=== PATIENT | male | born 1965 | race Caucasian/White ===

== ENCOUNTER 2023-04-29 22:50 | Inpatient (IN) | payer OTHER, SELFPAY ==
[2023-04-29] VITALS (12 sets, daily range): BP systolic 85–142; BP diastolic 69–83; BMI 39.5; BMI 36.7
[2023-04-29 19:30] LABS: Glucose - Point of Care 82 mg/dl (70-99)
[2023-04-29 19:49] LABS: % Basophils 0.4 % (0-2); % Immature Granulocytes 0.4 % (0-0.5); % Lymphocytes 7.2 % (20.5-51.1); % Monocytes 9.9 % (1.7-9.3); % Neutrophils 82.1 % (42.2-75.2); Absolute Lymphocytes 0.7 10^3/uL (1.2-3.4); Absolute Monocytes 0.9 10^3/uL (0.1-0.6); Absolute Neutrophils 7.6 10^3/uL (1.4-6.5); Hematocrit 29.2 % (39.0-52.0); Hemoglobin 9.5 g/dL (13.0-18.0); Mean Corp Hgb Conc. 32.5 g/dL (33.0-37.0); Mean Corpuscular Hgb 25.1 pg (27.0-31.0); Mean Corpuscular Volume 77.2 fL (80.0-94.0); Nucleated Red Blood Cells % 0 % (-); Platelet Count 156 10^3/uL (130-400); Red Blood Cell Count 3.78 10^6/uL (4.70-6.10); Red Cell Dist. Width 25.6 % (11.5-14.5); White Blood Cell Count 9.2 10^3/uL (4.8-10.8)
[2023-04-29] MEDS: NSS 1000 IV (19:57)
[2023-04-29 20:02] LABS: Ammonia 53 umol/L (9-30)
--- NOTE | 2023-04-29 20:03 | ED.GENMED ---
History of Present Illness
<Shantanu Freeman PA-C - Last Filed: 04/29/23 21:14>
General
Chief Complaint: Fall
Source: patient
Exam Limitations: none
Time Seen by Provider: 04/29/23 19:33
Travel History
Have you had any contact with someone who has COVID-19?: No
Do you have any symptoms of coronavirus? Fever > 100 degrees, chills, cough, shortness of breath, sore throat, loss of taste or smell, muscle aches, or headache?: No
History of Present Illness
History of Present Illness:
57-year-old male with history of alcoholic cirrhosis presents via EMS from home. He states he fell asleep on the couch and rolled off the couch but was unable to get up off the floor. He was on the floor for several hours. His daugther called
EMS. He denies chest pain. Denies abdominal pain fever or shortness of breath. His only complaint is generalized weakness. Last time he received a paracentesis about 4 months ago. He follows with GI here. He has a history of psoriasis.
Past History
<Shantanu Freeman PA-C - Last Filed: 04/29/23 21:14>
Past History
ED Past Medical History: None
Social History
Tobacco: Smoker
Alcohol: Daily (Until a month ago)
Phy Exam
<Shantanu Freeman PA-C - Last Filed: 04/29/23 21:14>
Physical Exam
Physical Exam:
General: Chronically ill-appearing male no acute respiratory distress
HEENT: Normocephalic atraumatic
Heart: Regular rate and rhythm no murmurs
Lungs: Breath sounds slightly diminished bilaterally secondary to body habitus
Abdomen: Significantly distended but soft and nontender
Extremities: Diffuse edema no cyanosis
Skin: Psoriatic plaques noted over the trunk and extremities
Neurologic exam: Alert no facial asymmetry no asterixis
Course
<Shantanu Freeman PA-C - Last Filed: 04/29/23 21:14>
Orders/Labs/Results
Orders:
Orders
04/29/23 19:34
Electrocardiogram (*1) Urgent
Reason for Study: Fatigue / Weakness
EKG- Treatment ONCE
Urinalysis Reflex To Culture Urgent
04/29/23 19:36
Prothrombin Time Urgent
Blood Culture Q30M
KATELYN Source: Blood/Venous
Specimen Description:
04/29/23 19:37
Ammonia Urgent
CPK [Creatine Phosphokinase] Urgent
Complete Blood Count/With Diff Urgent
Comprehensive Metabolic Panel Urgent
Lactic Acid Q4H
Comment: CANCEL 2nd LACTIC ACID IF 1st LACTIC ACID IS LESS THAN 2
04/29/23 19:48
Ever Hugger [Ever Hugger-Treatment] ONCE
Patient's goal temperature:: 97 F
Additional Instructions:: Temperature and skin assessment per unit protocol
0.9% Sodium Chloride 1000 ml [Nss] 1,000 ml IV BOLUS
04/29/23 20:15
Blood Culture Q30M
KATELYN Source: Blood/Venous
Specimen Description:
04/29/23 20:16
Piperacillin/Tazo 3.375 Gram [Zosyn] 3.375 gram in 50 ml IV NOW
Vancomycin [Vancocin] 2,000 mg 0.9% Sodium Chloride 500 ml [Nss] 500 ml IV NOW
04/29/23 20:20
Dextrose 50%-Water [Dextrose 50% Syringe] 25 grams IV NOW STA
04/29/23 20:25
CR Chest Portable - 1 View Urgent
Comment:
Reason For Exam: weakness
Reason Study Needs to be Portable: Patient Unstable
04/29/23 20:54
Catheter [Brand Placement- Treatment] ONCE
Reason for insertion: I&O's Critical Care
04/29/23 23:45
Lactic Acid Q4H
Comment: CANCEL 2nd LACTIC ACID IF 1st LACTIC ACID IS LESS THAN 2
Abnormal Lab Results
04/29/23 04/29/23
19:36 19:37
RBC 3.78 L 10^6/uL
(4.70-6.10)
Hgb 9.5 L g/dL
(13.0-18.0)
Hct 29.2 L %
(39.0-52.0)
MCV 77.2 L fL
(80.0-94.0)
MCH 25.1 L pg
(27.0-31.0)
MCHC 32.5 L g/dL
(33.0-37.0)
RDW 25.6 H %
(11.5-14.5)
Absolute Neuts (auto) 7.6 H 10^3/uL
(1.4-6.5)
Absolute Lymphs (auto) 0.7 L 10^3/uL
(1.2-3.4)
Absolute Monos (auto) 0.9 H 10^3/uL
(0.1-0.6)
Neutrophils % 82.1 H %
(42.2-75.2)
Lymphocytes % 7.2 L %
(20.5-51.1)
Monocytes % 9.9 H %
(1.7-9.3)
PT 24.1 H Sec
(11.4-14.6)
Carbon Dioxide 16 L mmol/L
(22-30)
Creatinine 0.6 L mg/dL
(0.7-1.3)
Glucose 64 L mg/dl
(70-99)
Lactic Acid 11.9 H* mmol/L
(0.7-2.0)
Calcium 8.2 L mg/dl
(8.4-10.2)
Total Bilirubin 5.9 H mg/dl
(0.2-1.3)
AST 746 H* U/L
(17-59)
ALT 127 H U/L
(0-50)
Ammonia 53 H umol/L
(9-30)
Creatine Kinase 49293 H U/L
(55-170)
Albumin 2.9 L g/dl
(3.5-5.0)
04/29/23 19:37
04/29/23 19:37
Vital Signs
Initial and Last Documented VS:
Initial Vital Signs
Temp Pulse Resp Pulse Ox
92.0 F L 100 23 98
04/29/23 19:19 04/29/23 19:19 04/29/23 19:19 04/29/23 19:19
Last Documented Vital Signs
Temp Pulse Resp BP Pulse Ox
92.0 F L 100 23 138/78 98
04/29/23 19:19 04/29/23 19:19 04/29/23 19:19 04/29/23 20:01 04/29/23 19:19
<Kunal Klein, DO - Last Filed: 04/29/23 21:02>
Orders/Labs/Results
Orders:
Orders
04/29/23 19:34
Electrocardiogram (*1) Urgent
Reason for Study: Fatigue / Weakness
EKG- Treatment ONCE
Urinalysis Reflex To Culture Urgent
04/29/23 19:36
Prothrombin Time Urgent
Blood Culture Q30M
KATELYN Source: Blood/Venous
Specimen Description:
04/29/23 19:37
Ammonia Urgent
CPK [Creatine Phosphokinase] Urgent
Complete Blood Count/With Diff Urgent
Comprehensive Metabolic Panel Urgent
Lactic Acid Q4H
Comment: CANCEL 2nd LACTIC ACID IF 1st LACTIC ACID IS LESS THAN 2
04/29/23 19:48
Ever Hugger [Ever Hugger-Treatment] ONCE
Patient's goal temperature:: 97 F
Additional Instructions:: Temperature and skin assessment per unit protocol
0.9% Sodium Chloride 1000 ml [Nss] 1,000 ml IV BOLUS
04/29/23 20:15
Blood Culture Q30M
KATELYN Source: Blood/Venous
Specimen Description:
04/29/23 20:16
Piperacillin/Tazo 3.375 Gram [Zosyn] 3.375 gram in 50 ml IV NOW
Vancomycin [Vancocin] 2,000 mg 0.9% Sodium Chloride 500 ml [Nss] 500 ml IV NOW
04/29/23 20:20
Dextrose 50%-Water [Dextrose 50% Syringe] 25 grams IV NOW STA
04/29/23 20:25
CR Chest Portable - 1 View Urgent
Comment:
Reason For Exam: weakness
Reason Study Needs to be Portable: Patient Unstable
04/29/23 20:54
Catheter [Brand Placement- Treatment] ONCE
Reason for insertion: I&O's Critical Care
04/29/23 23:45
Lactic Acid Q4H
Comment: CANCEL 2nd LACTIC ACID IF 1st LACTIC ACID IS LESS THAN 2
Abnormal Lab Results
04/29/23 04/29/23
19:36 19:37
RBC 3.78 L 10^6/uL
(4.70-6.10)
Hgb 9.5 L g/dL
(13.0-18.0)
Hct 29.2 L %
(39.0-52.0)
MCV 77.2 L fL
(80.0-94.0)
MCH 25.1 L pg
(27.0-31.0)
MCHC 32.5 L g/dL
(33.0-37.0)
RDW 25.6 H %
(11.5-14.5)
Absolute Neuts (auto) 7.6 H 10^3/uL
(1.4-6.5)
Absolute Lymphs (auto) 0.7 L 10^3/uL
(1.2-3.4)
Absolute Monos (auto) 0.9 H 10^3/uL
(0.1-0.6)
Neutrophils % 82.1 H %
(42.2-75.2)
Lymphocytes % 7.2 L %
(20.5-51.1)
Monocytes % 9.9 H %
(1.7-9.3)
PT 24.1 H Sec
(11.4-14.6)
Carbon Dioxide 16 L mmol/L
(22-30)
Creatinine 0.6 L mg/dL
(0.7-1.3)
Glucose 64 L mg/dl
(70-99)
Lactic Acid 11.9 H* mmol/L
(0.7-2.0)
Calcium 8.2 L mg/dl
(8.4-10.2)
Total Bilirubin 5.9 H mg/dl
(0.2-1.3)
AST 746 H* U/L
(17-59)
ALT 127 H U/L
(0-50)
Ammonia 53 H umol/L
(9-30)
Creatine Kinase 31960 H U/L
(55-170)
Albumin 2.9 L g/dl
(3.5-5.0)
04/29/23 19:37
04/29/23 19:37
Vital Signs
Initial and Last Documented VS:
Initial Vital Signs
Temp Pulse Resp Pulse Ox
92.0 F L 100 23 98
04/29/23 19:19 04/29/23 19:19 04/29/23 19:19 04/29/23 19:19
Last Documented Vital Signs
Temp Pulse Resp BP Pulse Ox
92.0 F L 100 23 138/78 98
04/29/23 19:19 04/29/23 19:19 04/29/23 19:19 04/29/23 20:01 04/29/23 19:19
<Shantanu Freeman PA-C - Last Filed: 04/29/23 21:14>
MDM/Problems Addressed
Differential Diagnosis Includes:
Weakness. Patient noted to be hypothermic with a rectal temperature of 92 upon arrival. History of alcoholic cirrhosis clinically now with significant ascites. No exam findings to suggest spontaneous bacterial peritonitis as his abdomen is soft
and nontender. Will obtain cultures lactic acid labs and ammonia level. Patient placed on Ever hugger
<Shantanu Freeman PA-C - Last Filed: 04/29/23 21:14>
*Critical Care Note
Total Time (30-74mins, 75-104mins- exclusive of procedures): Not Applicable
<Shantanu Freeman PA-C - Last Filed: 04/29/23 21:14>
Update Note
Update Note:
Patient with several laboratory abnormalities including lactic acidosis with a lactic of 11.9. He has elevated transaminases. Ammonia is elevated serum glucose is 64. CPK is 21,000. Patient warming up on Ever hugger. Blood pressure has been
stable since initial hypotensive reading. Discussed and seen with emergency room attending. Do not suspect SBP given lack of tenderness on exam. Will admit to hospital. Vancomycin and Zosyn ordered for coverage for potential sepsis. Blood
cultures are pending
ED Attending Note
<Shantanu Freeman PA-C - Last Filed: 04/29/23 21:14>
-
Portions of this chart may have been created with voice recognition software.� Occasional wrong word or��sound alike� substitutions may have occurred due to the inherent limitations of voice recognition software.
<Kunal Klein DO - Last Filed: 04/29/23 21:02>
ED Attending Note
Patient seen and examined by attending physician: Yes
I performed the substantive portion of visit, reviewed & personally made and approve the management plan that is documented in note by myself or ALLEY.: Yes
ED Attending Note:
Patient is a 57-year-old cirrhotic male who presents to the emergency department after not being able to get off the floor when he rolled off the couch today. Patient denies any injuries. Patient states he is just weak. Patient denies fever or
chills. Patient denies chest pain, shortness of breath or cough. Patient denies any abdominal pain, no nausea, vomiting or diarrhea. Patient does have paracentesis but has not had it for approximately 3 to 4 months. Patient denies symptoms.
Patient denies any extremity pain. Patient does admit to mild edema. Patient denies any head injury. On physical exam patient appears to be in minimal distress. Patient is pale with slight icteric sclera. Heart is distant but regular and lungs
are clear. Abdomen is greatly distended. Patient does have +1 pitting edema from the knees distally. Patient has significant psoriasis over his trunk and extremities. Patient's labs reviewed. Patient's lactic acid is elevated. Patient's
ammonia is elevated as well as AST. Patient's albumin is below 3. Patient's hypotensive and hypothermic. Patient actually looks better than his vital signs. Obviously sepsis and infection has to be considered. Patient's abdomen is nontender I
do not suspect peritonitis. Patient will be admitted. Patient is on a Ever hugger. Awaiting EKG.
Discharge Plan
Departure
Patient Disposition: Admit
Date of Disposition: 04/29/23
Time of Disposition: 21:13
Admit to: IMU
Presentation/result/management discussed w/ accepting MD/DO: Hospitalist
Discharge Problem:
Hypothermia, Acidosis, lactic, Rhabdomyolysis
Prescriptions:
No Action
spironolactone 50 mg Tablet
50 mg PO BID Qty: 60 0RF
furosemide 40 mg tablet
40 mg PO QPM
cholecalciferol (vitamin D3) 50 mcg (2,000 unit) Tablet
50 mcg PO DAILY
Referrals:
UNKNOWN - PT DOES,NOT KNOW [Family Provider] -
Interventions
Interventions:
*Risk Screen - Suicide Last Done: 04/29/23 19:19
*General Assessment Last Done: 04/29/23 19:19
*Neglect/Abuse Screening Last Done: 04/29/23 19:19
*ED COVID-19 Vaccine History Last Done: 04/29/23 19:19
[2023-04-29 20:04] LABS: INR 2.18; PT 24.1 Sec (11.4-14.6)
[2023-04-29 20:09] LABS: Calcium 8.2 mg/dl (8.4-10.2)
[2023-04-29 20:10] LABS: ALT (SGPT) 127 U/L (0-50); AST (SGOT) 746 U/L (17-59); Albumin 2.9 g/dl (3.5-5.0); Alkaline Phosphatase 124 U/L (38-126); Blood Urea Nitrogen 9 mg/dl (9-20); Carbon Dioxide 16 mmol/L (22-30); Chloride 101 mmol/L (98-107); Estimated Creatinine Clearance > 125 ml/min; Glucose 64 mg/dl (70-99); Potassium 4.2 mmol/L (3.5-5.1); Sodium 138 mmol/L (135-145); Total Bilirubin 5.9 mg/dl (0.2-1.3); Total Protein 7.7 g/dl (6.3-8.2); eGFR > 60.00
[2023-04-29 20:16] LABS: Lactic Acid 11.9 mmol/L (0.7-2.0)
[2023-04-29 21:05] LABS: Creatine Phosphokinase 21048 U/L (55-170)
[2023-04-29] MEDS: DEXTROSE 50% SYRINGE 25 GRAMS IV (21:33)
[2023-04-29 21:58] LABS: Urine Albumin Trace (Neg - Trace); Urine Bilirubin 1+ (Negative); Urine Character Clear (Clear); Urine Color Amber; Urine Glucose Negative (Negative); Urine Ketone 1+ (Negative); Urine Leukocyte Trace (Negative); Urine Nitrite Positive (Negative); Urine Occult Blood 4+ (Negative); Urine Specific Gravity 1.025 (<1.030); Urine Urobilinogen 1+ (Neg - 1+)
[2023-04-29 22:05] LABS: Urine Mucus Moderate
[2023-04-29 22:06] LABS: Urine Bacteria Many (Negative); Urine Hyaline Cast >15 /LPF (0-2); Urine Red Blood Cell 0-2 /HPF (0-2)
[2023-04-29 22:08] LABS: Glucose - Point of Care 144 mg/dl (70-99)
--- NOTE | 2023-04-29 22:14 | HPS.HSE ---
Family Physician
-
Family Physician: Vamshi Juarez
Chief Complaint
-
Weakness
History of Present Illness
Patient is a 57y M with PMH significant for alcoholic cirrhosis and psoriasis who presents to ED complaining of weakness and abdominal distention. History obtained from patient and from family at the bedside. Patient states that he felt well
this AM. He denies any recent symptoms of cough, dyspnea, fevers / chills, etc. He lie down on his couch around 11AM today and took a nap. He woke around 4PM on the floor next to his couch. He does not recall falling and thinks he must have
rolled off of the couch. He denies any pain upon waking. He was unfortunately unable to get himself up off of the floor. He states that his arms and legs were too weak for him to rise. He stayed there until around 7PM when his daughter arrived
with EMS and he was brought to the ED for evaluation.
Patient continues to deny any pain including headache, etc.
He states that he had at least one other episode of 'passing out' about one week ago and was also on the floor for a prolonged period of time in that instance. He did not seek medical attention at that time.
Patient has chronic alcoholic cirrhosis and ascites. He is compliant with his medications; however, he has gained about 40 lbs in the past 3-4 months.
Patient last had paracentesis 11/2022 for > 8 liters of fluid. He has had gradual abdominal distention and pressure since that time.
Patient notes that he drinks alcohol about 1-2 times per week - but he will drink 1/2 bottle of vodka on days that he does drink. His last drink was about 2 days ago.
In the ED, patient has had two episodes of loose, brown diarrhea that is not grossly bloody. He denies any diarrhea prior to today.
He is awake. alert and oriented. He denies any other current complaints.
Medical History
Past Medical History
Past Medical History: Reports Other
Additional Past Medical History:
Alcoholic Cirrhosis with Ascites and Esophageal Varices
Severe Psoriasis
Depression
Past Surgical History: Reports Other
Additional Past Surgical History:
Inguinal Herniorrhaphy
Social History
Tobacco: Smoker (Current every day smoker.)
Alcohol: Occasional (Chronic Alcoholic. Currently drinks 1/2 bottle of vodka once or twice per week.)
Drug: None
Living: Alone
Family History
Family History: Not pertinent
Allergies / Home Medications
Allergies reflects when Allergies were last updated in [facility].
Home Medications with original date entered in [facility]
Allergy/Medication List:
Allergies
Allergy/AdvReac Type Severity Reaction Status Date / Time
No Known Allergies Allergy Verified 11/27/22 11:27
Home Medications
spironolactone 50 mg tablet 50 mg PO BID #60 tabs 12/09/21
furosemide 40 mg tablet 40 mg PO QPM 11/27/22
cholecalciferol (vitamin D3) 50 mcg (2,000 unit) tablet 50 mcg PO DAILY 04/29/23
Review of Systems
-
History Source: Patient
A 12 point ROS was completed and negative except as noted: Yes
Constitutional: Reports Weight Gain and Fatigue; Denies Fever or Chills
Respiratory: Denies Cough or Trouble Breathing
Cardiac: Denies Chest Pain or Palpitations
Abdomen/GI: Reports Abdominal Pain and Diarrhea; Denies Nausea, Vomiting, Bloody Stools or Black Stools
: Denies Dysuria or Flank Pain
Musculoskeletal: Reports Edema; Denies Joint Pain
Neurological: Denies Dizzy or Headache
Psych: Denies Depression or Anxiety
Physical Exam
Vital Signs
Vital Signs
Temp Pulse Resp BP Pulse Ox
93.0 F L 100 23 138/78 98
04/29/23 21:27 04/29/23 19:19 04/29/23 19:19 04/29/23 20:01 04/29/23 19:19
Physical Exam
General: Other (57y M chronically ill-appearing. In no acute distress.)
HEENT: PERRLA and Other (Dry MM.)
Respiratory: Other (Decreased breath sounds bilaterally. Poor inspiratory effort.)
Cardiac: S1/S2 and Regular Rhythm; No Murmur
GI: Other (Markedly distended abdomen. Mildly diffusely tender. Pos bowel sounds.)
Genito-urinary: Other (Brand in place draining tea-colored urine.)
Musculoskeletal: No Clubbing, No Cyanosis and Other (4+ pitting edema into the lower abdomen.)
Skin: Other (Severe psoriasis with multiple areas of scaling / superficial skin breakdown. Most severe on the RLE, lower abdomen and perineum.)
Neuro: AO x 3 and Nonfocal/grossly intact
Laboratory Results
-
04/29/23 19:37
04/29/23 19:37
Laboratory Results
PT 24.1 Sec (11.4-14.6) H 04/29/23 19:36
INR 2.18 04/29/23 19:36
Lactic Acid 11.9 mmol/L (0.7-2.0) H* 04/29/23 19:37
Total Bilirubin 5.9 mg/dl (0.2-1.3) H 04/29/23 19:37
AST 746 U/L (17-59) H* 04/29/23 19:37
ALT 127 U/L (0-50) H 04/29/23 19:37
Alkaline Phosphatase 124 U/L (38-126) 04/29/23 19:37
Impression/Plan
-
A/P: Patient is a 57y M with PMH significant for alcoholic cirrhosis who presents to ED c/o weakness after being found down on the floor this afternoon.
Severe Rhabdomyolysis
Pigment Nephropathy
- Admit to IMU for further evaluation and treatment.
- CPK markedly elevated and suspect this is combination of multiple recent falls / time spent 'down'.
- UA with 4+ blood but no RBCs c/w pigment nephropathy.
- Administer volume for renal protection - will require coincident diuresis given cirrhosis / hypervolemia.
- Follow renal function for any changes and CPK levels for improvement.
- No complaints of pain at this time.
Alcoholic Cirrhosis with Ascites and Esophageal Varices
Lactic Acidosis
Chronic Alcohol Use Disorder
- Marked ascites on exam - gradual accumulation since 11/2022 per patient - despite current diuretic regimen.
- IR evaluation in the AM for diagnostic (r/o SBP) and therapeutic paracentesis.
- Cover with IV ceftriaxone for now - though patient is afebrile and notably not toxic appearing.
- GI evaluation for additional recommendations.
- Continue Lasix via IV route and follow urine output, daily weights, etc.
- Follow labs / lytes and adjust IVF replacement as needed.
- Follow serial lactate for improvement.
- Patient / family are interested in eventual inpatient rehab options. CM consulted.
Hypothermia
- ? secondary to infection / sepsis versus cirrhosis.
- No recent complaints / focal symptoms to suggest acute bacterial illness.
- Empiric abx for now as noted above.
- Ever Hugger for now. Follow temp curve.
- Check TFTs
- Follow for improvement.
Severe Psoriasis
- Marked skin changes c/w advanced psoriasis over multiple surfaces - most severe on RLE, lower abdomen and perineum.
- Wound care evaluation for local care recommendations.
- Wound encourage Dermatology evaluation as an outpatient.
- Suspect that cirrhosis will limit his systemic therapeutic options.
Chronic Macrocytic Anemia
- Stable. Hgb is at / near recent baseline.
- Check iron studies, B12, etc.
- Follow for any changes.
DVT Prophylaxis: Subcut heparin
Code Status: Full
[2023-04-29] MEDS: ROCEPHIN 2000 MG IV (22:25)
[2023-04-29] MEDS: STERILE WATER FOR INJECTION 20 ML IV (22:25)
[2023-04-30] VITALS (18 sets, daily range): BP systolic 98–135; BP diastolic 44–70; BMI 36.7
[2023-04-30] MEDS: D5/0.9% SODIUM CHLORIDE 1000 IV (00:47)
[2023-04-30] MEDS: FLEXBUMIN 100 IV ×4 (00:47→18:09)
[2023-04-30] MEDS: FLEXBUMIN 50 IV ×2 (00:50→15:25)
[2023-04-30 01:09] LABS: Iron 81 ug/dl (49-181)
--- NOTE | 2023-04-30 01:11 | PTCARENOTE ---
admitted to [id number]. abdomen is huge . iv fluids and albumin started- repeat lactic sent- sinus- bp wnl- psoriasis wounds open and in various degrees and stages of healing - afebrile- will monitor
[2023-04-30 01:20] LABS: Percent Saturation 34 % (20-50); Total Iron Binding Capacity 232 ug/dl (261-462)
[2023-04-30 01:25] LABS: Lactic Acid 9.7 mmol/L (0.7-2.0)
[2023-04-30 01:40] LABS: TSH Reflex To Free T4 1.31 uIU/ml (0.47-4.68)
[2023-04-30 02:16] LABS: Folate 5.6 ng/ml (2.76-20); Vitamin B12 > 1000 pg/ml (239-931)
[2023-04-30] MEDS: THIAMINE INJECTION 200 MG IV ×4 (02:26→23:48)
[2023-04-30] MEDS: ATIVAN 1 MG PO ×3 (05:33→21:13)
--- NOTE | 2023-04-30 05:34 | PTCARENOTE ---
msas was 5. 1 mg ativan given per protocol- -
[2023-04-30 05:37] LABS: Hemoglobin 8.4 g/dL (13.0-18.0); Mean Corp Hgb Conc. 32.3 g/dL (33.0-37.0); Mean Corpuscular Hgb 24.6 pg (27.0-31.0); Mean Platelet Volume 9.1 fL (7.4-10.4); Platelet Count 123 10^3/uL (130-400); Red Blood Cell Count 3.42 10^6/uL (4.70-6.10); Red Cell Dist. Width 25.1 % (11.5-14.5)
[2023-04-30 05:46] LABS: INR 2.33; PT 25.5 Sec (11.4-14.6)
[2023-04-30 05:52] LABS: Lactic Acid 7.2 mmol/L (0.7-2.0)
[2023-04-30 06:06] LABS: ALT (SGPT) 123 U/L (0-50); Albumin 3.1 g/dl (3.5-5.0); Alkaline Phosphatase 103 U/L (38-126); Blood Urea Nitrogen 10 mg/dl (9-20); Calcium 7.9 mg/dl (8.4-10.2); Carbon Dioxide 19 mmol/L (22-30); Chloride 105 mmol/L (98-107); Direct Bilirubin 3.4 mg/dl (0.0-0.4); Estimated Creatinine Clearance > 125 ml/min; Glucose 96 mg/dl (70-99); Magnesium 1.9 mg/dl (1.6-2.3); Phosphorus 3.8 mg/dl (2.5-4.5); Potassium 4.3 mmol/L (3.5-5.1); Sodium 137 mmol/L (135-145); Total Protein 7.4 g/dl (6.3-8.2); eGFR > 60.00
[2023-04-30 06:14] LABS: AST (SGOT) 744 U/L (17-59); Creatine Phosphokinase 10610 U/L (55-170)
--- NOTE | 2023-04-30 08:09 | W.PN.HOSP.TC ---
Today's Communication/Plan
-
For paracentesis today
Assessment / Plan
Assessment / Plan
HPI: 57y M with PMH significant for alcoholic cirrhosis who presents to ED c/o weakness after being found down on the floor this afternoon.
Severe Rhabdomyolysis
Pigment Nephropathy
�-CPK trending down, holding IV fluids secondary to respiratory distress
-Continue to trend CPK
Alcoholic Cirrhosis with Ascites and Esophageal Varices
Lactic Acidosis
Chronic Alcohol Use Disorder with alcohol dependency
�-Seen by GI, plan for paracentesis today
�-Continue rocephin, Lasix via IV route and follow urine output, daily weights, etc.
�-Trend serial lactate for improvement.
�-Patient / family are interested in eventual inpatient rehab options.� CM consulted
-Thiamone/folic acid, MSAS protocol
Respiratory distress
-Secondary to ascites, hold IV fluids, for paracentesis as above
-IV morphine as needed for dyspnea and pain
Hypothermia
�- ? secondary to infection / sepsis versus cirrhosis.
�-TSH normal
�-Continue Rocephin, bear hugger
�-Trend temp and white count
Severe Psoriasis
�- Marked skin changes c/w advanced psoriasis over multiple surfaces - most severe on RLE, lower abdomen and perineum.
�- Continue wound care, recommend outpatient Derm evaluation
�- Suspect that cirrhosis will limit his systemic therapeutic options.
Chronic Macrocytic Anemia
�-Monitor hemoglobin, B12/folic acid normal
DVT Prophylaxis:� Subcut heparin
Code Status:� Full
Total time spent to see the patient on the floor, examine the patient, review data and lab results, discuss treatment plan with patient, nursing staff around 52 minutes.
Physical Exam
General: Appears acutely ill, no acute distress
HEENT: Normocephalic, Atraumatic, EOMI, MMM
Respiratory: Tachypnea, mild respiratory distress, bibasilar crackles
Cardiac: Normal S1/S2, tachycardic rate, regular rhythm
GI: Tense abdomen, severely distended
Extremities: No Clubbing, Cyanosis
Bilateral lower extremity edema noted
Neuro: Nonfocal/Grossly Intact
Psych: Appears anxious
Derm: Severe psoriatic plaque on bilateral lower extremities, right greater than left
Anticipated Discharge: > 48 hours
Subjective/Interval History
-
Date of Service: April 30, 2023
Patient in respiratory distress, tachycardic, from severe distention from ascites.
Objective Data
-
Labs:
Laboratory Results
04/29/23 04/30/23
19:37 05:25
WBC 6.0
Hgb 8.4 L
Hct 26.0 L
Plt Count 123 L D
PT 25.5 H
INR 2.33
Sodium 138 137
Potassium 4.2 4.3
Chloride 101 105
Carbon Dioxide 16 L 19 L
BUN 9 10
Creatinine 0.6 L 0.6 L
Glucose 64 L 96
Calcium 8.2 L 7.9 L
Total Bilirubin 5.9 H 6.0 H
AST 746 H* 744 H*
ALT 127 H 123 H
Alkaline Phosphatase 124 103
Vital Signs:
Vital Signs
Temp Pulse Resp BP Pulse Ox
97.3 F 119 26 124/70 96
04/30/23 03:32 04/30/23 06:00 04/30/23 06:00 04/30/23 06:00 04/30/23 06:00
I&O
04/29/23 04/30/23 05/01/23
06:59 06:59 06:59
Intake Total 1060 / 1060
Balance 1060 / 1060
--- NOTE | 2023-04-30 08:28 | CON.GI ---
Addendum entered and electronically signed by Viviane Serrato DO 04/30/23 12:43:
Patient seen and examined independently of ARCHITECTURAL EXAMINER. I agree with her note with my additions below
Shayne is a 57-year-old noncompliant male with decompensated alcoholic cirrhosis with recurrent ascites who is actively drinking and not eligible for transplant for many reasons. He is here after waking up on the floor, currently with concern for
rhabdomyolysis, elevated lactate. GI was asked to see him for multiple chronic issues related to his liver. He has been seen in our office couple of times but has been noncompliant and getting labs and repeat paracentesis. He has never had SBP.
Routine labs on admission showed a hemoglobin of 9.5, WBC 9.2, platelets 156,000, INR 2.18, sodium 138, potassium 4.2, BUN 9, creatinine 0.6, lactic acid 11.9, total bilirubin 5.9, AST 746, ALT 127, alk phos 124, ammonia 53, CPK 21,048, albumin 2.9,
vitamin B12 greater than 1000, folate 5.6, TSH 1.31. His MELD is 24, his DF is 63.
On exam he appears to be slightly tachypneic and wheezing, he is very distended and somewhat tense ascites which he states has been this way for months. His last paracentesis was in November.
# Ascites -needs diagnostic and therapeutic paracentesis followed by albumin per protocol due to the volume that will be removed
-- Holding diuretics currently in the setting of rhabdo and about to have a large volume paracentesis which may cause fluid shifts and MAMIE which is why we will do albumin
-- Hold normal saline as this is 9 g of salt and 1 L.
-- 2 g sodium limit per day
-- Daily weights
# Decompensated alcoholic cirrhosis in setting of noncompliance and continued drinking
-- Goals of care, consider hospice if he is unwilling to be compliant
-- alcohol cessation counseling again
-- DVT proph
Addendum entered and electronically signed by Sharon Romero NP 04/30/23 11:15:
DF 63.5. With concern of infection with +UA and pending paracentesis to rule out SBP. No steroids at this time. Will follow DF.
Original Note:
Consultation
-
Date/Time Consultation Requested: 04/29/2023 @ 23:41
Date/Time Consultation Performed: 04/30/2023 @ 08:30
Requesting Provider: Dr. Shane Crowe
Performing Provider: ADILSON Rubio; Dr. Viviane Serrato
Reason for Consultation: Cirrhosis / Ascites
Medical History
Chief Complaint / HPI
Chief Complaint: weakness
History of Present Illness:
The pt is a 57 yo male with a PMH significant for decompensated liver cirrhosis with recurrent ascites and ongoing alcohol use, psoriasis, current cigarette smoker, who presented to the emergency room with complaints of weakness. We are being asked
to evaluate for his decompensated cirrhosis and significant ascites. The patient is well-known to us in the office, followed by Dr. Camarena outpatient for his history of decompensated alcoholic liver cirrhosis. He was last seen by myself in the
office on 03/18/23. At that time he had reported increased abdominal distention and increased weight, feeling as though he needed a repeat paracentesis. His last paracentesis was done here in November with 8,500 cc removed. There was no evidence of
SBP at that time. He was advised to get his labs done in the office and continue on his diuretics, and was then sent for outpatient paracentesis which he did not follow-up with. He reports having a tough few weeks and admits that he has been
drinking again, about 3 days weekly half a 750 cc bottle of M[employer] vodka on those days. He has not been taking his diuretics regularly either. He reports that he has been 'lazy' and this is why he has not been following up. He was also scheduled
for an endoscopy in March which she did not show up to. He notes yesterday he took a nap in the afternoon, and when he awoke he was on the floor and is unsure how long he was there, which prompted his ER evaluation. He notes at home he has been
having insomnia with no overt lethargy. He currently denies any significant abdominal pain but does report significant pressure and distention which has been worsening. He has gained weight but does not know how much. He admits to some coughing
and shortness of breath as of this morning but denies any chest pain. He denies any fevers, chills, nausea, vomiting, melena, hematochezia, hematemesis, dizziness, or lightheadedness. He denies any yellowing of the skin or eyes, increased
confusion, or lethargy. He reports he has been following a low-sodium diet the best to his ability. He notes his last alcoholic beverage was 2 days ago. He denies any use of NSAIDs or blood thinners. He denies any signs and symptoms of
withdrawal currently. Routine labs on admission showed a hemoglobin of 9.5, WBC 9.2, platelets 156,000, INR 2.18, sodium 138, potassium 4.2, BUN 9, creatinine 0.6, lactic acid 11.9, total bilirubin 5.9, AST 746, ALT 127, alk phos 124, ammonia 53,
CPK 21,048, albumin 2.9, vitamin B12 greater than 1000, folate 5.6, TSH 1.31. He was started on IV antibiotics with ceftriaxone to cover for SBP. He was made n.p.o. and started on IV fluids for treatment of rhabdomyolysis. He was ordered IV Lasix
20 mg twice daily[place] [address]. He also did receive IV albumin overnight. He is pending paracentesis this morning.
Past Medical History
Past Medical History: Psychiatric (Depression) and Other (Psoriasis, decompensated alcoholic liver cirrhosis, history of grade 1 esophageal varices, portal hypertension)
Past Surgical History: Other (Hernia repair as a child)
Social History
Tobacco: Smoker
Alcohol: Chronic Alcoholic
Drug: None
Living: Alone
Family History
Family History: Reviewed & Not Pertinent
Allergies / Home Medications
Allergy/AdvReac Type Severity Reaction Status Date / Time
No Known Allergies Allergy Verified 04/29/23 22:44
Medication Instructions Recorded
spironolactone 50 mg tablet 50 mg PO BID #60 tabs 12/09/21
furosemide 40 mg tablet 40 mg PO QPM 11/27/22
cholecalciferol (vitamin D3) 50 50 mcg PO DAILY 04/29/23
mcg (2,000 unit) tablet
Review of Systems
-
History Source: Patient
Constitutional: Reports Fatigue
EENT: Reports No Symptoms
Respiratory: Reports Cough and Trouble Breathing
Cardiac: Reports No Symptoms
Abdomen/GI: Reports Other (Abdominal pressure/distention)
: Reports Difficulty Voiding and Dark Urine
Musculoskeletal: Reports No Symptoms
Skin: Reports Rash (Diffuse psoriasis rash)
Neurological: Reports Weakness
Vital Signs
Temp Pulse Resp BP Pulse Ox
97.3 F 119 26 124/70 96
04/30/23 03:32 04/30/23 06:00 04/30/23 06:00 04/30/23 06:00 04/30/23 06:00
Physical Exam
Exam
General: Other (Chronically ill-appearing male in mild respiratory distress)
HEENT: Normocephalic, Anicteric and Atraumatic
Respiratory: Other (Diffuse coarse breath sounds with scant wheezing bilaterally, increased work of breathing)
Cardiac: S1/S2 and Regular Rhythm (Sinus tachycardia on telemetry monitoring)
Breast: Deferred by me
GI: Non Tender, Distended (Diffusely distended) and Other (Soft bowel sounds due to significant distention; shifting dullness, + ascites)
Rectal: Deferred by Provider
Musculoskeletal: Edema (+2 lower extremity pitting edema)
Skin: Warm, Dry and Rash (Diffuse scattered psoriatic rash throughout body)
Neuro: Awake and Alert
Psych: Calm
Results
WBC 6.0 10^3/uL (4.8-10.8) 04/30/23 05:25
Hgb 8.4 g/dL (13.0-18.0) L 04/30/23 05:25
Hct 26.0 % (39.0-52.0) L 04/30/23 05:25
MCV 76.0 fL (80.0-94.0) L 04/30/23 05:25
Plt Count 123 10^3/uL (130-400) L D 04/30/23 05:25
Absolute Neuts (auto) 7.6 10^3/uL (1.4-6.5) H 04/29/23 19:37
PT 25.5 Sec (11.4-14.6) H 04/30/23 05:25
INR 2.33 04/30/23 05:25
Sodium 137 mmol/L (135-145) 04/30/23 05:25
Potassium 4.3 mmol/L (3.5-5.1) 04/30/23 05:25
Chloride 105 mmol/L (98-107) 04/30/23 05:25
Carbon Dioxide 19 mmol/L (22-30) L 04/30/23 05:25
BUN 10 mg/dl (9-20) 04/30/23 05:25
Creatinine 0.6 mg/dL (0.7-1.3) L 04/30/23 05:25
Calcium 7.9 mg/dl (8.4-10.2) L 04/30/23 05:25
Total Bilirubin 6.0 mg/dl (0.2-1.3) H 04/30/23 05:25
AST 744 U/L (17-59) H* 04/30/23 05:25
ALT 123 U/L (0-50) H 04/30/23 05:25
Alkaline Phosphatase 103 U/L (38-126) 04/30/23 05:25
Diagnostic Image Results:
04/29/2023 CXR: IMPRESSION: Minor pulmonary vascular congestion. Mild elevation of the right hemidiaphragm.
11/11/2022 CT of the chest, abdomen, pelvis w/IV contrast: IMPRESSION: 'Fractures of at least the right fourth through ninth ribs with adjacent likely posttraumatic small pleural effusion and some accompanying adjacent subsegmental atelectasis. No
pneumothorax. MASSIVE ASCITES. Markedly limited evaluation of diffusely heterogeneous liver with lobulated borders suggesting marked hepatic cirrhotic morphology. Unfortunately, a small hepatic space-occupying lesion cannot be excluded. Grossly
intact solid organs of the abdomen. Mild nonspecific retroperitoneal, mediastinal, bilateral axillary and bilateral inguinal lymph node/lymphadenopathy. Additional findings: Moderate bilateral gynecomastia and� small nonobstructing right renal
calculus.'
Prior GI Procedures:
EGD: 02/21/2022 EGD, Dr. Camarena: Grade 1 esophageal varices. Portal hypertensive gastropathy. Gastritis. Normal examined duodenum. Biopsies negative for H. pylori
Colonoscopy: 04/[address] Camarena: Benign hyperplastic polyps, sigmoid diverticulosis.
Assessment / Plan
-
The pt is a 57 yo male with a PMH significant for decompensated liver cirrhosis with recurrent ascites and ongoing alcohol use, psoriasis, current cigarette smoker, who presented to the emergency room with complaints of weakness. We are being asked
to evaluate for his decompensated cirrhosis and significant ascites. He is well-known to us in our office for history of decompensated liver cirrhosis with significant ascites. He was last seen in the office in February scheduled for blood work and
outpatient paracentesis which he did not complete. He is continue to drink alcohol in the interim with further decompensation of his liver disease with ongoing ascites. He was found on the floor with a CPK greater than 20,000 consistent for
rhabdomyolysis. Lactic acid 11 on admission. He was started on 2 g of ceftriaxone IV to cover for SBP with significant ascites. Pending IR for paracentesis. He was started on IV Lasix along with IV fluids. His last alcoholic beverage was 2 days
ago.
Problem list:
-Decompensated alcoholic liver cirrhosis with recurrent ascites and ongoing alcohol use, MELD sodium score 23/MELD 3.0 23
-Rhabdomyolysis
-Lactic acidosis
-Chronic microcytic anemia
-Mild thrombocytopenia
-Coagulopathy, elevated INR 2.3
-Elevated LFTs
-UTI
-Hypoxia
-Current cigarette smoker
-Psoriasis, diffuse lesions throughout body
Recommendations:
-Currently with significant decompensation of liver cirrhosis with severe ascites secondary to ongoing alcohol use and diuretic noncompliance.
-Agree with paracentesis, he will likely require large-volume. Will order albumin post-procedure
-Await fluid cell counts, fluid culture, and Gram stain. Rule out SBP
-He will need ongoing use of diuretics and likely will need to up-titrate pending blood pressure. Currently is on 20 mg of Lasix IV twice daily
-IV fluids held at this time with signs of respiratory distress, hypoxia, and increased work of breathing. Discussed with hospitalist Dr. Byrd. Chest x-ray pending and proBNP added to the morning labs
-Monitor daily MELD labs. Currently at a score of 23 indicating a 19.6% estimated 90-day mortality rate
-I again reinforced the need for alcohol cessation or this ultimately will lead to mortality.
-Management of rhabdomyolysis as per hospitalist
-Started on ceftriaxone for UTI versus SBP
-He will need eventual outpatient follow-up to reschedule his EGD for varices screening
-Elevated ammonia level. Will discuss with Dr. Serrato regarding initiating lactulose. He is currently arousable but does seem somewhat forgetful.
-Alcohol withdrawal protocol
-2 g sodium diet
-Per nursing wound care will be evaluating him for his diffuse psoriatic lesion
-Monitor I's and O's
-Will follow
-
-
Thank you for consultation and allowing me to participate in the patient's care. Please call the operations research scientist GI physician during the after hours with any questions or concerns.
[2023-04-30] MEDS: D5/0.9% SODIUM CHLORIDE IV (09:31)
--- NOTE | 2023-04-30 10:10 | PTCARENOTE ---
Pt's IV site appears infiltrated. IVT paged. Holding AM medications until new site obtained. Pt for IRAD after new site placed. Awaiting arrival of IVT.
[2023-04-30 10:42] LABS: NT-proBNP 462 pg/ml
[2023-04-30] MEDS: LASIX 20 MG IV ×2 (11:15→15:27)
[2023-04-30] MEDS: HEPARIN 5000 UNITS SC ×2 (11:16→20:27)
[2023-04-30] MEDS: PROTONIX IV 40 MG IV ×2 (11:18→20:27)
[2023-04-30] MEDS: NSS (PRESERVATIVE FREE) 10 ML IV ×2 (11:18→20:27)
[2023-04-30] MEDS: FOLVITE 1 MG PO (11:19)
[2023-04-30] MEDS: TRIAMCINOLONE 0.1% OINTMENT 1 APPLIC TOPICAL ×3 (11:25→21:20)
[2023-04-30 11:41] LABS: Lactic Acid 6.2 mmol/L (0.7-2.0)
[2023-04-30] MEDS: MORPHINE SULFATE 4 MG IV (11:42)
[2023-04-30 12:19] LABS: Glucose - Point of Care 89 mg/dl (70-99)
--- NOTE | 2023-04-30 12:54 | PTCARENOTE ---
Pt presents as assessed. Aox3. MSAS per protocol. ST with BBC on tele monitor. Pt in respiratory distress at rest with RR in the 40's. Dr. Byrd at bedside, order received for PRN IV Morphine for dyspnea. Administered as ordered with good effect. To
IRAD via stretcher.
[2023-04-30 14:22] LABS: Body Fluid Mononuclear 67.6 %; Body Fluid Polymorphonuclear 32.4 %; Body Fluid WBC 37 /CUMM
[2023-04-30 14:30] LABS: Body Fluid Second Tech EM
--- NOTE | 2023-04-30 14:30 | PTCARENOTE ---
Pt returned from IR via stretcher. VSS. Daughter at bedside- updated on plan of care.
--- NOTE | 2023-04-30 14:33 | W.PN.UPDATE ---
Update Note
Progress Note Update
10L removed from paracentesis. Fluid cell counts negative for SBP. 62.5g of 25% IV albumin ordered per protocol. Hold on lactulose with appropriate mental state, discussed with Dr. Serrato.
[2023-04-30 14:42] LABS: Body Fluid Albumin < 1.0 g/dl; Body Fluid LDH 116 U/L; Body Fluid Protein 2.2 g/dl
--- NOTE | 2023-04-30 15:07 | CM ---
manager hospital reviewed patient's chart and met with patient and patient lives alone in a townhouse, patient is independent with adl's and ambulation, no dme, patient drives, patient's only child, daughter, Yvette in room, patient with a long history
of Etoh use. Patient would benefit from referral to [facility], case management assistant will contact [facility] for them to meet with patient and review possible options. Daughter, Yvette would like to be kept updated on progress with options through [facility].
Pharmacy: [facility]
PCP: Dr Juarez
Plan; To follow up with a referral to [facility].
--- NOTE | 2023-04-30 15:19 | WOUNDNOTE ---
R FLANK AND LOWER BACK
--- NOTE | 2023-04-30 15:20 | WOUNDNOTE ---
R POSTERIOR THIGH AND KNEE
--- NOTE | 2023-04-30 15:20 | WOUNDNOTE ---
L LOWER BACK AND FLANK
--- NOTE | 2023-04-30 15:21 | WOUNDNOTE ---
GAUTAM RN NOTE: Patient admitted with hypothermia, acidosis and rhabdomyolysis after rolling off couch. Unable to get up on own, was on floor for several hours before EMS arrived. PMH: Alcoholic, cirrhosis, psoriasis and smoker. Daughter Yvette at
bedside assisted with helping dad turn in bed. Patient has large plaques of Psoriasis all over extremities, trunk and back. No drainage and patient said only L lower back and thigh itchy. Has not had any treatment for psoriasis per patient.
Triamcinolone cream already on order, recommend apply that to areas that are itchy, all remainder mineral oil. Encouraged patient to follow up with a [facility]ning L[employer] Operator [facility] upon discharge. Daughter states they will follow up with Dermatology. Will confirm
the above with hospitalist. Nurse Sky updated on care.
[2023-04-30 16:32] LABS: Lactic Acid 4.5 mmol/L (0.7-2.0)
--- NOTE | 2023-04-30 16:53 | PTCARENOTE ---
Addendum entered by Asya Casey 04/30/23 17:25:
IVP Metoprolol administered, see MAR.
Original Note:
Pt HR sustaining in the 150's. Pt asymptomatic. Dr. Byrd notified via TT. Verbal order received for PRN Metoprolol- awaiting verification by pharmacy.
[2023-04-30] MEDS: LOPRESSOR 5 MG IV (16:59)
[2023-04-30 21:00] LABS: Lactic Acid 2.9 mmol/L (0.7-2.0)
[2023-04-30] MEDS: STERILE WATER FOR INJECTION 20 ML IV (21:12)
[2023-04-30] MEDS: ROCEPHIN 2000 MG IV (21:12)
[2023-04-30 23:54] LABS: Glucose - Point of Care 131 mg/dl (70-99)
[2023-05-01] VITALS (16 sets, daily range): BP systolic 102–137; BP diastolic 54–73; PULSE 107–118; O2SAT 94; BMI 33.5
[2023-05-01 01:09] LABS: Lactic Acid 1.7 mmol/L (0.7-2.0)
[2023-05-01 04:43] LABS: Hemoglobin 7.3 g/dL (13.0-18.0); Mean Corp Hgb Conc. 33.2 g/dL (33.0-37.0); Mean Corpuscular Hgb 25.1 pg (27.0-31.0); Mean Corpuscular Volume 75.6 fL (80.0-94.0); Mean Platelet Volume 9.5 fL (7.4-10.4); Platelet Count 107 10^3/uL (130-400); Red Blood Cell Count 2.91 10^6/uL (4.70-6.10); Red Cell Dist. Width 24.6 % (11.5-14.5); White Blood Cell Count 6.3 10^3/uL (4.8-10.8)
[2023-05-01 04:54] LABS: INR 2.41; PT 26.1 Sec (11.4-14.6)
[2023-05-01 05:22] LABS: ALT (SGPT) 103 U/L (0-50); AST (SGOT) 470 U/L (17-59); Albumin 2.8 g/dl (3.5-5.0); Alkaline Phosphatase 84 U/L (38-126); Creatine Phosphokinase 3762 U/L (55-170); Total Bilirubin 4.2 mg/dl (0.2-1.3); Total Protein 6.5 g/dl (6.3-8.2)
[2023-05-01 07:18] LABS: Glucose - Point of Care 102 mg/dl (70-99)
[2023-05-01] MEDS: PROTONIX IV 40 MG IV ×2 (09:13→19:45)
[2023-05-01] MEDS: NSS (PRESERVATIVE FREE) 10 ML IV ×2 (09:13→19:45)
[2023-05-01] MEDS: LASIX 20 MG IV ×2 (09:13→17:07)
[2023-05-01] MEDS: FOLVITE 1 MG PO (09:13)
[2023-05-01] MEDS: TRIAMCINOLONE 0.1% OINTMENT 1 APPLIC TOPICAL ×3 (09:14→21:36)
[2023-05-01] MEDS: HEPARIN 5000 UNITS SC ×2 (09:14→19:45)
[2023-05-01] MEDS: HYDROPHOR 1 APPLIC TOPICAL (09:14)
[2023-05-01] MEDS: THIAMINE INJECTION 200 MG IV ×2 (09:14→17:06)
--- NOTE | 2023-05-01 09:26 | W.PN.HOSP.TC ---
Today's Communication/Plan
-
see bold
Assessment / Plan
Assessment / Plan
HPI: 57y M with PMH significant for alcoholic cirrhosis who presents to ED c/o weakness after being found down on the floor this afternoon.
Severe Rhabdomyolysis
Pigment Nephropathy
�-CPK trending down, is 3,762, was 10,069, was 21,048 upon admission
-Give gentle IVFs x 1 liter while NPO
-Continue to trend CPK
Alcoholic Cirrhosis with Ascites and Esophageal Varices
Lactic Acidosis
Chronic Alcohol Use Disorder with alcohol dependency
�-Seen by GI, status post paracentesis 04/29 draining 10 L, he has received albumin
�-Continue rocephin, Lasix via IV route and follow urine output, daily weights, etc.
�-Lactic acid normalized
�-Patient / family are interested in eventual inpatient rehab options.� CM consulted
-Thiamone/folic acid, MSAS protocol
Respiratory distress
-Secondary to ascites, resolved after paracentesis
-IV morphine as needed for dyspnea and pain
Aspiration pneumonitis
Transient hypoxia
-Due to aspiration episode
-SPL recommends n.p.o. except for meds
-Was requiring 15 L, now on 2 L
Hypothermia/low-grade fever 100.3
�- ? secondary to infection / sepsis versus cirrhosis.
�-TSH normal, continue Rocephin, bear hugger
�-Trend temp and white count
Severe Psoriasis
�- Marked skin changes c/w advanced psoriasis over multiple surfaces - most severe on RLE, lower abdomen and perineum.
�- Continue wound care, recommend outpatient Derm evaluation
�- Suspect that cirrhosis will limit his systemic therapeutic options.
Chronic Macrocytic Anemia
�-B12/folic acid normal
-Hemoglobin 7.3 today, down from 9.5 upon admission
-Transfuse for hemoglobin less than 7.0
DVT Prophylaxis:� Subcut heparin
Code Status:� Full
Updated daughter on phone 04/30
Total time spent to see the patient on the floor, examine the patient, review data and lab results, discuss treatment plan with patient, nursing staff around 51 minutes.
Physical Exam
General: Appears acutely ill, no acute distress
HEENT: Normocephalic, Atraumatic, EOMI, MMM
Respiratory: Tachypnea, mild respiratory distress, bibasilar crackles
Cardiac: Normal S1/S2, tachycardic rate, regular rhythm
GI: soft abdomen, distention improved from prior
Extremities: No Clubbing, Cyanosis
Bilateral lower extremity edema noted
Neuro: Nonfocal/Grossly Intact
Psych: Appears anxious
Derm: Severe psoriatic plaque on bilateral lower extremities, right greater than left
Anticipated Discharge: > 48 hours
Subjective/Interval History
-
Date of Service: May 01, 2023
Nursing staff reports patient had a coughing episode while eating. He then became hypoxic, requiring 15 L of oxygen. He denies abdominal pain. No nausea, no vomiting.
Objective Data
-
Labs:
Laboratory Results
05/01/23 05/01/23
04:21 04:22
WBC 6.3
Hgb 7.3 L
Hct 22.0 L
Plt Count 107 L
PT 26.1 H
INR 2.41
Total Bilirubin 4.2 H
AST 470 H
ALT 103 H
Alkaline Phosphatase 84
Vital Signs:
Vital Signs
Temp Pulse Resp BP Pulse Ox
99 F 106 18 121/64 94
05/01/23 07:30 05/01/23 06:00 05/01/23 06:00 05/01/23 06:00 05/01/23 09:10
I&O
04/30/23 05/01/23 05/02/23
06:59 06:59 06:59
Intake Total 1060 / 1060 490 / 490
Output Total 575 / 575
Balance 1060 / 1060 - / -
[2023-05-01] MEDS: DUONEB 3 ML INH ×3 (10:29→19:25)
[2023-05-01] MEDS: DUONEB INH (10:32)
[2023-05-01 11:54] LABS: Glucose - Point of Care 153 mg/dl (70-99)
--- NOTE | 2023-05-01 12:01 | W.PN.GI.CBS2 ---
Addendum entered and electronically signed by Viviane Serrato DO 05/01/23 14:52:
Patient seen and examined independently of ADILSON. I agree with her note with my additions below
Shayne is a 57-year-old male with decompensated alcoholic cirrhosis with recurrent large-volume ascites who is actively drinking presents with weakness and tense ascites with a UTI
# Ascites -would retap him tomorrow followed by albumin
-- Patient on Lasix but not Aldactone. Start 100 mg of oral Aldactone generally do a 5:2 ratio to keep potassium in balance
# Hepatic encephalopathy -patient more somnolent today but during my exam he was awake and alert and oriented but does have asterixis
-Grade 2 -start oral lactulose every 2 today. If he is too somnolent to take oral start the lactulose enemas
-Treat the UTI
-Avoid benzodiazepines unless he needs it for withdrawal
-Monitor for GI bleeding. Hemoglobin drop noted but no overt bleeding seen
-10 L paracentesis on the , negative for SBP
# Decompensated alcoholic cirrhosis with active drinking -patient is not a transplant candidate due to his unwillingness to stop alcohol
-- MELD today is 22
--Per the daughter hopefully going to a drug and alcohol rehab from here
-- Had a 15-minute conversation with his parents who are at bedside then another 15-minute conversation with his daughter Yvette over the phone
# elevated INR - possible malnutrition -
# Rhabdomyolysis -Per primary team
Addendum entered and electronically signed by Sharon Romero NP 05/01/23 13:06:
Spoke with Dr. Serrato. With up-trending INR we will add 5 mg of p.o. vitamin K daily x 3 days. Will also resume regular diuretics tomorrow with Aldactone 100 mg and Lasix 40 mg. Will repeat H&H today with significant drop although with no signs of
bleeding. Will follow closely
Original Note:
Today's Communication / Plan
-
Monitor daily MELD labs. Diet as per speech. Repeat paracentesis tomorrow versus Saturday. Monitor H&H.
Assessment / Plan
-
The pt is a 57 yo male with a PMH significant for decompensated liver cirrhosis with recurrent ascites and ongoing alcohol use, psoriasis, current cigarette smoker, who presented to the emergency room with complaints of weakness. We are being asked
to evaluate for his decompensated cirrhosis and significant ascites. He is well-known to us in our office for history of decompensated liver cirrhosis with significant ascites. He was last seen in the office in February scheduled for blood work and
outpatient paracentesis which he did not complete. He is continue to drink alcohol in the interim with further decompensation of his liver disease with ongoing ascites. He was found on the floor with a CPK greater than 20,000 consistent for
rhabdomyolysis. Lactic acid 11 on admission. He was started on 2 g of ceftriaxone IV to cover for SBP with significant ascites. Pending IR for paracentesis. He was started on IV Lasix along with IV fluids. His last alcoholic beverage was 2
prior to admission .
Problem list:
-Decompensated alcoholic liver cirrhosis with recurrent ascites and ongoing alcohol use, MELD sodium score 23/MELD 3.0 23
-Rhabdomyolysis
-Lactic acidosis
-Chronic microcytic anemia
-Mild thrombocytopenia
-Coagulopathy, elevated INR 2.3
-Elevated LFTs
-UTI
-Hypoxia
-Current cigarette smoker
-Psoriasis, diffuse lesions throughout body
04/30/2023 paracentesis: 10,000 cc of clear dark yellow ascitic fluid was removed. Fluid cell counts negative for SBP
04/30/23 chest x-ray: Mild pulmonary edema similar to prior examination.
Recommendations:
-Currently with significant decompensation of liver cirrhosis with severe ascites secondary to ongoing alcohol use and diuretic noncompliance.
---Status post paracentesis of 10 L, feeling somewhat better although still with significant ascites on exam. No SBP.
-Will discuss with Dr. Serrato, but likely will need repeat paracentesis tomorrow or Saturday.
-He is on Lasix 20 mg IV twice daily. Will repeat BMP today to monitor renal function with large volume paracentesis yesterday, and reviewed further diuretics with Dr. Serrato.
-Monitor daily MELD labs.
-Ceftriaxone for UTI as per medicine
-CPK significantly downtrending
-He will need eventual outpatient follow-up to reschedule his EGD for varices screening
-Monitor H&H, no signs of GI bleeding currently
-No overt HE but does close his eyes during conversation.
-Alcohol withdrawal protocol
-2 g sodium diet, pending speech eval
-Respiratory management as per hospitalist
-I again reinforced the need for alcohol cessation or this ultimately will lead to mortality. Goals of care discussion with guarded prognosis if he continues to drink. I will call the patient's daughter and talk to her as well, which the patient
is okay with.
-Will follow
Subjective
Subjective
Date of Service: May 01, 2023
The patient was seen and examined at the bedside. He reports a cough but no other significant GI complaints. Per nursing he did have noted hypoxia and was placed on mid flow oxygen, with concern for aspiration. Speech therapy consult is pending.
Noted with a drifting hemoglobin but no signs of bleeding currently.
Objective
Data Reviewed
Laboratory Data:
Laboratory Results
05/01/23 04:21
Laboratory Results
PT 26.1 Sec (11.4-14.6) H 05/01/23 04:22
INR 2.41 05/01/23 04:22
Phosphorus 3.8 mg/dl (2.5-4.5) 04/30/23 05:25
Magnesium 1.9 mg/dl (1.6-2.3) 04/30/23 05:25
Total Bilirubin 4.2 mg/dl (0.2-1.3) H 05/01/23 04:21
AST 470 U/L (17-59) H 05/01/23 04:21
ALT 103 U/L (0-50) H 05/01/23 04:21
Alkaline Phosphatase 84 U/L (38-126) 05/01/23 04:21
Vital Signs and I&O:
Vital Signs
Temp Pulse Resp BP Pulse Ox
99 F 106 25 128/67 96
05/01/23 07:30 05/01/23 10:31 05/01/23 10:31 05/01/23 10:00 05/01/23 10:31
I&O
04/30/23 05/01/23 05/02/23
06:59 06:59 06:59
Intake Total 1060 / 1060 490 / 490
Output Total 575 / 575
Balance 1060 / 1060 -85 / -85
Physical Exam
Physical Exam
HEENT: Other
Cardiology: S1 and S2 (Regular rhythm, sinus tachycardia on telemetry monitoring)
Pulmonary: Other (Scattered coarse breath sounds bilaterally with scant wheeze intermittently, supplemental oxygen in place, + wet cough)
GI: Distended, Non Tender, Normal Bowel Sounds and Other (+ Ascites)
Extremities: Edema
[2023-05-01 12:02] LABS: Blood Urea Nitrogen 15 mg/dl (9-20); Carbon Dioxide 26 mmol/L (22-30); Chloride 101 mmol/L (98-107); Estimated Creatinine Clearance > 125 ml/min; Glucose 100 mg/dl (70-99); Potassium 3.7 mmol/L (3.5-5.1); Sodium 136 mmol/L (135-145); eGFR > 60.00
--- NOTE | 2023-05-01 12:03 | PTCARENOTE ---
Pt presents as assessed. Aox3, drowsy and flat. ST on tele monitor, rates in the low 100's. Pt with coughing fit and desatting to the 70's. Difficulty recovering above low 80's on 6LNC. NRB applied and pt recovered to mid 90's. Transitioned to MFNC
by RT. Sats in the low to mid 90's at this time. Pt for speech eval today. MSAS continued. Bed alarm in place for safety. Call almeida within reach.
--- NOTE | 2023-05-01 12:30 | PTOTSP ---
SPEECH THERAPY SWALLOW EVALUATION:
Patient presents with clinical signs of oropharyngeal dysphagia, likely acute related to AMS secondary to alcohol withdrawal and/or alcoholic liver cirrhosis, and possibly chronic related to deconditioning. Patient remains at high risk for
aspiration given respiratory status, altered mental status, confusion, lethargy, and impulsivity. RN reporting patient with noted suspected aspiration event earlier with meal. Recommend patient to be temporary NPO with short-term alternate means for
nutrition/hydration, except for necessary medications crushed in puree and occasional ice chips via ARHP with 1:1 assist from RN only when awake/alert. Speech therapy to follow, re-assess in 24 hours, determine readiness for instrumental assessment
of swallowing (VFSS), provide education regarding aspiration risks/precautions, and provide continued diagnostic treatment as appropriate.
RECOMMEND:
1) temporary NPO with short-term alternate means for nutrition/hydration
2) necessary medications crushed in puree
3) occasional ice chips via ARHP with 1:1 assist from RN only when awake/alert
4) Speech therapy to follow, re-assess in 24 hours, determine readiness for instrumental assessment of swallowing (VFSS), provide education regarding aspiration risks/precautions, and provide continued diagnostic treatment as appropriate
--- NOTE | 2023-05-01 14:26 | PTCARENOTE ---
Pt drowsy throughout the day. ST recommended NPO for the day. PO Vit K ordered by GI- d/w Dr. Zeus eason to hold at this time d/t concern for aspiration.
[2023-05-01] MEDS: MEPHYTON PO (14:37)
[2023-05-01] MEDS: MEPHYTON 5 MG PO (14:41)
[2023-05-01 16:25] LABS: Hemoglobin 7.6 g/dL (13.0-18.0)
[2023-05-01] MEDS: DUPHALAC/CHRONULAC 20 GRAMS PO ×2 (17:06→19:45)
[2023-05-01] MEDS: NSS 1000 IV (17:06)
[2023-05-01 18:31] LABS: Glucose - Point of Care 100 mg/dl (70-99)
[2023-05-01] MEDS: STERILE WATER FOR INJECTION 20 ML IV (21:31)
[2023-05-01] MEDS: ROCEPHIN 2000 MG IV (21:31)
[2023-05-01 23:59] LABS: Glucose - Point of Care 133 mg/dl (70-99)
[2023-05-02] VITALS (13 sets, daily range): BP systolic 103–125; BP diastolic 58–75; PULSE 108; O2SAT 95; BMI 33.1
[2023-05-02] MEDS: DUPHALAC/CHRONULAC 20 GRAMS PO ×6 (00:42→23:37)
[2023-05-02] MEDS: THIAMINE INJECTION 200 MG IV ×3 (00:42→17:40)
[2023-05-02 03:48] LABS: Hematocrit 23.2 % (39.0-52.0); Hemoglobin 7.6 g/dL (13.0-18.0); Mean Corp Hgb Conc. 32.8 g/dL (33.0-37.0); Mean Corpuscular Hgb 24.8 pg (27.0-31.0); Mean Corpuscular Volume 75.8 fL (80.0-94.0); Mean Platelet Volume 8.9 fL (7.4-10.4); Platelet Count 98 10^3/uL (130-400); Red Blood Cell Count 3.06 10^6/uL (4.70-6.10); Red Cell Dist. Width 25.3 % (11.5-14.5); White Blood Cell Count 6.1 10^3/uL (4.8-10.8)
[2023-05-02 04:12] LABS: ALT (SGPT) 101 U/L (0-50); AST (SGOT) 385 U/L (17-59); Albumin 2.6 g/dl (3.5-5.0); Alkaline Phosphatase 80 U/L (38-126); Blood Urea Nitrogen 16 mg/dl (9-20); Calcium 7.8 mg/dl (8.4-10.2); Carbon Dioxide 27 mmol/L (22-30); Chloride 104 mmol/L (98-107); Estimated Creatinine Clearance > 125 ml/min; Glucose 87 mg/dl (70-99); Potassium 3.4 mmol/L (3.5-5.1); Sodium 136 mmol/L (135-145); Total Bilirubin 4.4 mg/dl (0.2-1.3); Total Protein 6.5 g/dl (6.3-8.2); eGFR > 60.00
[2023-05-02 04:14] LABS: INR 2.39; PT 26.3 Sec (11.4-14.6)
[2023-05-02 04:26] LABS: Creatine Phosphokinase 2576 U/L (55-170)
--- NOTE | 2023-05-02 06:09 | PTCARENOTE ---
Patient with large amounts of liquid stools overnight- rectal tube placed. MSAS as high as 2. Patient continuously asking for chocolate and drinks even though he is NPO. Education provided and ineffective.
[2023-05-02] MEDS: DUONEB 3 ML INH ×4 (07:47→19:19)
[2023-05-02 08:25] LABS: Glucose - Point of Care 89 mg/dl (70-99)
[2023-05-02] MEDS: ALDACTONE 100 MG PO (09:01)
[2023-05-02] MEDS: HEPARIN 5000 UNITS SC ×2 (09:02→20:06)
[2023-05-02] MEDS: HYDROPHOR 1 APPLIC TOPICAL (09:04)
[2023-05-02] MEDS: LASIX 20 MG IV (09:05)
[2023-05-02] MEDS: NSS (PRESERVATIVE FREE) 10 ML IV ×2 (09:06→20:05)
[2023-05-02] MEDS: TRIAMCINOLONE 0.1% OINTMENT 1 APPLIC TOPICAL ×3 (09:07→20:15)
[2023-05-02] MEDS: PROTONIX IV 40 MG IV ×2 (09:07→20:05)
[2023-05-02] MEDS: FOLVITE 50.2000000000000028 MG IV (09:09)
--- NOTE | 2023-05-02 09:19 | W.PN.GI.CBS2 ---
Today's Communication / Plan
-
-- Diuretic regimen, low sodium diet, potassium supplementation, paracentesis tomorrow
Assessment / Plan
-
The pt is a 57 yo male with a PMH significant for decompensated liver cirrhosis with recurrent ascites and ongoing alcohol use, psoriasis, current cigarette smoker, who presented to the emergency room with complaints of weakness. We are being asked
to evaluate for his decompensated cirrhosis and significant ascites. He is well-known to us in our office for history of decompensated liver cirrhosis with significant ascites. He was last seen in the office in February scheduled for blood work and
outpatient paracentesis which he did not complete. He is continue to drink alcohol in the interim with further decompensation of his liver disease with ongoing ascites. He was found on the floor with a CPK greater than 20,000 consistent for
rhabdomyolysis. Lactic acid 11 on admission. He was started on 2 g of ceftriaxone IV to cover for SBP with significant ascites. Pending IR for paracentesis. He was started on IV Lasix along with IV fluids. His last alcoholic beverage was 2
prior to admission .
Problem list:
-Decompensated alcoholic liver cirrhosis with recurrent ascites and ongoing alcohol use, MELD sodium score 23/MELD 3.0 23
-Rhabdomyolysis
-Lactic acidosis
-Chronic microcytic anemia
-Mild thrombocytopenia
-Coagulopathy, elevated INR 2.3
-Elevated LFTs
-UTI
-Hypoxia
-Current cigarette smoker
-Psoriasis, diffuse lesions throughout body
04/30/2023 paracentesis: 10,000 cc of clear dark yellow ascitic fluid was removed. Fluid cell counts negative for SBP
04/30/23 chest x-ray: Mild pulmonary edema similar to prior examination.
Recommendations:
-Currently with significant decompensation of liver cirrhosis with severe ascites secondary to ongoing alcohol use and diuretic noncompliance.
---Status post paracentesis of 10 L, feeling somewhat better although still with significant ascites on exam. No SBP.
-Will discuss with Dr. Serrato, but likely will need repeat paracentesis tomorrow or Saturday.
-He is on Lasix 20 mg IV twice daily. Will repeat BMP today to monitor renal function with large volume paracentesis yesterday, and reviewed further diuretics with Dr. Serrato.
-Monitor daily MELD labs.
-Ceftriaxone for UTI as per medicine
-CPK significantly downtrending
-He will need eventual outpatient follow-up to reschedule his EGD for varices screening
-Monitor H&H, no signs of GI bleeding currently
-Alcohol withdrawal protocol
-Respiratory management as per hospitalist
-I again reinforced the need for alcohol cessation or this ultimately will lead to mortality. Goals of care discussion with guarded prognosis if he continues to drink.
-Will follow
05/02/2023: Adjust diuretics to 100 mg of spironolactone which was started yesterday on the and change IV Lasix to oral 40 mg once daily
-- Gave him 40 mill equivalents of potassium -with the patient's need to keep potassium above 4 to prevent hepatic encephalopathy -this is likely due to the IV Lasix as well as the multiple bowel movements that we induced with the lactulose
-- Adjust the lactulose to have 3-4 bowel movements daily
-- Paracentesis for tomorrow
-- Avoid catheters if possible to prevent infection
-- Out of bed if possible
-- Discussed with nursing
Total Time Spent with Patient (in minutes): 20
Subjective
Subjective
Date of Service: May 02, 2023
Patient much more cognizant today alert and oriented. Hungry and thirsty
Objective
Data Reviewed
Laboratory Data:
Laboratory Results
05/02/23 03:39
05/02/23 03:39
Laboratory Results
PT 26.3 Sec (11.4-14.6) H 05/02/23 03:39
INR 2.39 05/02/23 03:39
Phosphorus 3.8 mg/dl (2.5-4.5) 04/30/23 05:25
Magnesium 1.9 mg/dl (1.6-2.3) 04/30/23 05:25
Total Bilirubin 4.4 mg/dl (0.2-1.3) H 05/02/23 03:39
AST 385 U/L (17-59) H 05/02/23 03:39
ALT 101 U/L (0-50) H 05/02/23 03:39
Alkaline Phosphatase 80 U/L (38-126) 05/02/23 03:39
Vital Signs and I&O:
Vital Signs
Temp Pulse Resp BP Pulse Ox
98.9 F 101 18 123/62 95
05/02/23 07:37 05/02/23 07:53 05/02/23 07:53 05/02/23 06:00 05/02/23 07:53
I&O
05/01/23 05/02/23 05/03/23
06:59 06:59 06:59
Intake Total 490 / 490 720 / 720
Output Total 575 / 575 1700 / 1700 150 / 150
Balance -85 / -85 -980 / -980 -150 / -150
Physical Exam
Physical Exam
HEENT: Other (Icteric)
Pulmonary: Clear
GI: Soft and Distended
Extremities: Edema
Neuro: Other (Minimal to no asterixis today, awake and alert)
[2023-05-02] MEDS: MEPHYTON 5 MG PO (09:29)
--- NOTE | 2023-05-02 10:00 | W.PN.HOSP.TC ---
Today's Communication/Plan
-
see bold
Assessment / Plan
Assessment / Plan
HPI: 57y M with PMH significant for alcoholic cirrhosis who presents to ED c/o weakness after being found down on the floor this afternoon.
Severe Traumatic Rhabdomyolysis
Pigment Nephropathy
�-CPK trending down, is 2,567, was 3,762, was 10,069, was 21,048 upon admission
-Continue to trend CPK
Alcoholic Cirrhosis with Ascites and Esophageal Varices
Lactic Acidosis
Chronic Alcohol Use Disorder with alcohol dependency
�-Seen by GI, status post paracentesis 04/29 draining 10 L, he has received albumin
�-Continue rocephin, Lasix via IV route and follow urine output, daily weights, etc.
�-Lactic acid normalized
�-Patient / family are interested in eventual inpatient rehab options.� CM consulted
-Thiamone/folic acid, MSAS protocol
-For repeat paracentesis tomorrow
Respiratory distress
-Secondary to ascites, resolved after paracentesis
-IV morphine as needed for dyspnea and pain
Aspiration pneumonitis
Acute hypoxic respiratory failure
-Due to aspiration episode
-Cleared for regular diet per SPL today
-Was requiring 15 L, now RA
Hypothermia/fever 100.5
Systemic inflammatory response syndrome�persistent tachycardia
�- ? secondary to infection / sepsis versus cirrhosis.
�-TSH normal, continue Rocephin, bear hugger
�-Repeat blood cultures, repeat chest x-ray, urine analysis trend temp and white count
Severe Psoriasis
�- Marked skin changes c/w advanced psoriasis over multiple surfaces - most severe on RLE, lower abdomen and perineum.
�- Continue wound care, recommend outpatient Derm evaluation. Start mometasone cream bid
�- Suspect that cirrhosis will limit his systemic therapeutic options.
Chronic Macrocytic Anemia
�-B12/folic acid normal
-Hemoglobin 7.6 today, down from 9.5 upon admission
-Transfuse for hemoglobin less than 7.0
DVT Prophylaxis:� Subcut heparin
Code Status:� Full
Updated daughter on phone 04/30
Total time spent to see the patient on the floor, examine the patient, review data and lab results, discuss treatment plan with patient, nursing staff around 52 minutes.
Physical Exam
General: Appears acutely ill, no acute distress
HEENT: Normocephalic, Atraumatic, EOMI, MMM
Respiratory: Tachypnea, mild respiratory distress, bibasilar crackles
Cardiac: Normal S1/S2, tachycardic rate, regular rhythm
GI: soft abdomen, distention improved from prior
Extremities: No Clubbing, Cyanosis
Bilateral lower extremity edema noted
Neuro: Awake/alert
Bilateral hand tremors noted
Psych: Appears anxious
Derm: Severe psoriatic plaque on bilateral lower extremities, right greater than left
Anticipated Discharge: > 48 hours
Subjective/Interval History
-
Date of Service: May 02, 2023
Patient more alert, awake today. Mentation much improved. Denies shortness of breath. No nausea, no vomiting. No chest pain, no palpitations. Continues to have tremors of the hands.
Objective Data
-
Labs:
Laboratory Results
05/02/23
03:39
WBC 6.1
Hgb 7.6 L
Hct 23.2 L
Plt Count 98 L
PT 26.3 H
INR 2.39
Sodium 136
Potassium 3.4 L
Chloride 104
Carbon Dioxide 27
BUN 16
Creatinine 0.6 L
Glucose 87
Calcium 7.8 L
Total Bilirubin 4.4 H
AST 385 H
ALT 101 H
Alkaline Phosphatase 80
Vital Signs:
Vital Signs
Temp Pulse Resp BP Pulse Ox
98.9 F 103 18 125/62 95
05/02/23 07:37 05/02/23 09:05 05/02/23 07:53 05/02/23 09:05 05/02/23 07:53
I&O
05/01/23 05/02/23 05/03/23
06:59 06:59 06:59
Intake Total 490 / 490 720 / 720
Output Total 575 / 575 1700 / 1700 150 / 150
Balance -85 / -85 -980 / -980 -150 / -150
--- NOTE | 2023-05-02 10:04 | PN.CDI ---
CDI
- -
CDI:
Physician Documentation Request
Admit Date: 04/29/23 22:50
Dear Doctor Do,
Clinical Indicators:
Patient admitted with severe rhabdomyolysis.
04/29 GI consult, 'increased work of breathing'
04/30 PN, 'Respiratory distress- Secondary to ascites, resolved after paracentesis...Transient hypoxia-Due to aspiration episode..Was requiring 15 L, now on 2 L.'
Please clarify which of the following accurately represents the patient's respiratory status:
Acute hypoxic respiratory failure
Hypoxia only
Other, please specify
Additional information for Respiratory Failure:
Recognized criteria for Respiratory Failure (Source: [facility] Hospitalist Dec 2012)
ABGs: (1 or more) Symptoms Please indicate type if known
1. p)2 <60 or RA SPO2 <91% on RA 1. Tachypnea, SOB, dyspnea Hypoxic
2. pCO2 50 and pH <7.35 2. Use of accessory muscles Hypercapnic
3. pO2 decrease of pCO2 increase by 3. Pallor or cyanosis Hypoxic and Hypercapnic
10 mmHg from baseline if known 4. Anxiety or restlessness Unable to determine
5. Unable to speak in full sentences
Supplemental O2 of > 40% (5LPM) Intubation is not required
Use of terms such as suspected, likely, concern for, or probable (associated with a specific diagnosis that is being evaluated, monitored, or treated as if it exists) are acceptable and can be coded in the inpatient setting, when documented at the
time of discharge.
Thank you,
KENDALL Funez RN
CDI Specialist
available via tiger text
Please use your independent medical judgment in providing your response.
--- NOTE | 2023-05-02 10:20 | PN.CDI ---
CDI
- -
CDI:
Physician Documentation Request
Admit Date: 04/29/23 22:50
Dear Doctor Do,
Clinical Indicators:
Patient admitted with severe rhabdomyolysis.
04/28 H &P, 'He lie down on his couch around 11AM today...woke around 4PM on the floor next to his couch...He stayed there until around 7PM..'
04/30 PN, Severe Rhabdomyolysis... CPK trending down...21,048 upon admission'
Based on the above, please clarify the type of rhabdomyolysis being treated/monitored:
Non Traumatic
Traumatic
Other
Use of terms such as suspected, likely, concern for, or probable (associated with a specific diagnosis that is being evaluated, monitored, or treated as if it exists) are acceptable and can be coded in the inpatient setting, when documented at the
time of discharge.
Thank you,
KENDALL Funez RN
CDI Specialist
available via tiger text
Please use your independent medical judgment in providing your response.
[2023-05-02] MEDS: KCL 40 MEQ PO (10:29)
--- NOTE | 2023-05-02 10:32 | PTOTSP ---
Speech Therapy
Oral/pharyngeal swallow deemed within functional limits without overt signs of aspiration.
Recommend
Regular solids and thin liquids.
No further skilled ST indicated at this time.
[2023-05-02 12:20] LABS: Glucose - Point of Care 136 mg/dl (70-99)
--- NOTE | 2023-05-02 12:20 | CM ---
CM following re: discharge planning.
Reviewed pt's chart, met with pt and spoke to [facility] FRANSICO Ceballos.
Per Lin, she met with the pt and pt agrees to go to inpatient D&A rehab. Requested pt's clinical faxed to [facility] at [phone]
D/C plan: Inpatient D&A rehab. [facility] following to assist pt with admission to inpatient residential D&A rehab
CM will follow with discharge plan updates as hospitalization progresses
[2023-05-02] MEDS: DUPHALAC/CHRONULAC PO (14:19)
[2023-05-02 16:49] LABS: Urine Albumin Trace (Neg - Trace); Urine Bilirubin 2+ (Negative); Urine Character Clear (Clear); Urine Color Amber; Urine Glucose Negative (Negative); Urine Ketone 1+ (Negative); Urine Leukocyte 1+ (Negative); Urine Nitrite Positive (Negative); Urine Occult Blood 4+ (Negative); Urine Specific Gravity 1.015 (<1.030); Urine Urobilinogen 4+ (Neg - 1+)
[2023-05-02 16:55] LABS: Glucose - Point of Care 131 mg/dl (70-99)
[2023-05-02 16:58] LABS: Urine Squamous Cell 0-2 /LPF (Few)
[2023-05-02 17:00] LABS: Urine Red Blood Cell 30-40 /HPF (0-2)
[2023-05-02 17:01] LABS: Urine Bacteria Moderate (Negative); Urine Mucus Moderate
[2023-05-02] MEDS: ROCEPHIN 2000 MG IV (20:05)
[2023-05-02] MEDS: STERILE WATER FOR INJECTION 20 ML IV (20:06)
[2023-05-02 21:03] LABS: Glucose - Point of Care 154 mg/dl (70-99)
[2023-05-03] VITALS (14 sets, daily range): BP systolic 95–121; BP diastolic 54–73; BMI 34.0
[2023-05-03 03:45] LABS: Hemoglobin 7.6 g/dL (13.0-18.0); Mean Corpuscular Volume 75.7 fL (80.0-94.0); Mean Platelet Volume 9.5 fL (7.4-10.4); Platelet Count 97 10^3/uL (130-400); Red Blood Cell Count 3.04 10^6/uL (4.70-6.10); Red Cell Dist. Width 25.7 % (11.5-14.5); White Blood Cell Count 6.9 10^3/uL (4.8-10.8)
[2023-05-03] MEDS: DUPHALAC/CHRONULAC 20 GRAMS PO ×3 (04:18→17:07)
[2023-05-03 04:30] LABS: ALT (SGPT) 91 U/L (0-50); AST (SGOT) 283 U/L (17-59); Albumin 2.4 g/dl (3.5-5.0); Alkaline Phosphatase 110 U/L (38-126); Blood Urea Nitrogen 12 mg/dl (9-20); Calcium 7.5 mg/dl (8.4-10.2); Carbon Dioxide 29 mmol/L (22-30); Chloride 101 mmol/L (98-107); Creatine Phosphokinase 1294 U/L (55-170); Estimated Creatinine Clearance > 125 ml/min; Glucose 115 mg/dl (70-99); Potassium 3.1 mmol/L (3.5-5.1); Sodium 132 mmol/L (135-145); Total Bilirubin 3.6 mg/dl (0.2-1.3); Total Protein 6.3 g/dl (6.3-8.2); eGFR > 60.00
--- NOTE | 2023-05-03 05:56 | W.PN.UPDATE ---
Update Note
Progress Note Update
Morning labs: Potassium 3.1, order placed to replete with Potassium 40meq 1x now.
[2023-05-03] MEDS: KCL 40 MEQ PO ×3 (06:10→17:24)
[2023-05-03 07:33] LABS: Glucose - Point of Care 131 mg/dl (70-99)
[2023-05-03] MEDS: DUONEB 3 ML INH ×4 (07:50→19:24)
[2023-05-03] MEDS: ALDACTONE 100 MG PO (08:11)
[2023-05-03] MEDS: LASIX 40 MG PO (08:11)
[2023-05-03] MEDS: PROTONIX IV 40 MG IV (08:12)
[2023-05-03] MEDS: NSS (PRESERVATIVE FREE) 10 ML IV (08:12)
[2023-05-03] MEDS: HEPARIN 5000 UNITS SC ×2 (08:13→21:00)
[2023-05-03] MEDS: HYDROPHOR 1 APPLIC TOPICAL (08:13)
[2023-05-03] MEDS: TRIAMCINOLONE 0.1% OINTMENT 1 APPLIC TOPICAL ×3 (08:14→21:02)
--- NOTE | 2023-05-03 08:49 | W.PN.HOSP.TC ---
Today's Communication/Plan
-
For repeat paracentesis today
Assessment / Plan
Assessment / Plan
HPI: 57y M with PMH significant for alcoholic cirrhosis who presents to ED c/o weakness after being found down on the floor this afternoon.
Severe Traumatic Rhabdomyolysis
Pigment Nephropathy
�-CPK trending down, is 1,294, was 2,567, was 3,762, was 10,069, was 21,048 upon admission
-Continue to trend CPK
Alcoholic Cirrhosis with Ascites and Esophageal Varices
Lactic Acidosis
Chronic Alcohol Use Disorder with alcohol dependency
�-Seen by GI, status post paracentesis 04/29 draining 10 L, he has received albumin
�-Continue rocephin, Lasix via IV route and follow urine output, daily weights, etc.
�-Lactic acid normalized
�-Patient / family are interested in eventual inpatient rehab options.� CM consulted
-Thiamone/folic acid, MSAS protocol
-For repeat paracentesis today, will also need albumin
Respiratory distress
-Secondary to ascites, resolved after paracentesis
-IV morphine as needed for dyspnea and pain
Aspiration pneumonitis
Acute hypoxic respiratory failure
-Due to aspiration episode
-Cleared for regular diet per SPL today
-Was requiring 15 L, now on RA
Hypothermia/fever 100.5
Systemic inflammatory response syndrome�persistent tachycardia
�- ? secondary to infection / sepsis versus cirrhosis.
�-TSH normal, continue Rocephin, bear hugger
�-Repeat blood cultures pending, repeat chest x-ray neg for PNA, urine analysis shows bacteria
-F/u urine culture, trend temp and white count
Hypokalemia
-Continue to replete, magnesium 1.8
Severe Psoriasis
�- Marked skin changes c/w advanced psoriasis over multiple surfaces - most severe on RLE, lower abdomen and perineum.
�- Continue triamcinolone ointment, wound care, recommend outpatient Derm evaluation.
�- Suspect that cirrhosis will limit his systemic therapeutic options.
Chronic Macrocytic Anemia
�-B12/folic acid normal
-Hemoglobin 7.6 today, down from 9.5 upon admission
-Transfuse for hemoglobin less than 7.0
DVT Prophylaxis:� Subcut heparin
Code Status:� Full
Updated daughter on phone 04/30
Total time spent to see the patient on the floor, examine the patient, review data and lab results, discuss treatment plan with patient, nursing staff around 51 minutes.
Physical Exam
General: Appears acutely ill, no acute distress
HEENT: Normocephalic, Atraumatic, EOMI, MMM
Respiratory: Tachypnea, mild respiratory distress, bibasilar crackles
Cardiac: Normal S1/S2, tachycardic rate, regular rhythm
GI: Tense abdomen, distention improved from prior
Extremities: No Clubbing, Cyanosis
Bilateral lower extremity edema noted
Neuro: Awake/alert
Bilateral hand tremors noted
Psych: Appears anxious
Derm: Severe psoriatic plaque on bilateral lower extremities, right greater than left
Anticipated Discharge: > 48 hours
Subjective/Interval History
-
Date of Service: May 03, 2023
Patient's hand tremors have improved. No chest pain, no shortness of breath. He denies dysuria. No nausea, no vomiting. He is febrile.
Objective Data
-
Labs:
Laboratory Results
05/03/23
03:26
WBC 6.9
Hgb 7.6 L
Hct 23.0 L
Plt Count 97 L
Sodium 132 L
Potassium 3.1 L
Chloride 101
Carbon Dioxide 29
BUN 12
Creatinine 0.6 L
Glucose 115 H
Calcium 7.5 L
Total Bilirubin 3.6 H
AST 283 H
ALT 91 H
Alkaline Phosphatase 110
Vital Signs:
Vital Signs
Temp Pulse Resp BP Pulse Ox
100.5 F H 102 18 105/61 94
05/03/23 03:11 05/03/23 07:52 05/03/23 07:52 05/03/23 06:00 05/03/23 07:52
I&O
05/02/23 05/03/23 05/04/23
06:59 06:59 06:59
Intake Total 720 / 720 2160 / 2160
Output Total 1700 / 1700 350 / 350
Balance -980 / -980 1810 / 1810
--- NOTE | 2023-05-03 08:58 | W.PN.GI.CBS2 ---
Today's Communication / Plan
-
Repeat paracentesis today. Give IV albumin
Continue lasix 40/adlactone 100
Abx not needed for ascites (negative SBP). Continue if needed to rx UTI
Reinforced need for EtOH abstinence
Continue lactulose POq4, titrate to 3 loose BMs per day
Assessment / Plan
-
Summary: 57 yo male with a PMH significant for decompensated liver cirrhosis with recurrent ascites and ongoing alcohol use, psoriasis, current cigarette smoker, who presented to the emergency room with complaints of weakness. We are being asked to
evaluate for his decompensated cirrhosis and significant ascites. He is well-known to us in our office for history of decompensated liver cirrhosis with significant ascites. He was last seen in the office in February scheduled for blood work and
outpatient paracentesis which he did not complete. He is continue to drink alcohol in the interim with further decompensation of his liver disease with ongoing ascites. He was found on the floor with a CPK greater than 20,000 consistent for
rhabdomyolysis. Lactic acid 11 on admission. He was started on 2 g of ceftriaxone IV to cover for SBP with significant ascites. Pending IR for paracentesis. He was started on IV Lasix along with IV fluids. His last alcoholic beverage was 2
prior to admission .
Problem list:
-Decompensated alcoholic liver cirrhosis with recurrent ascites and ongoing alcohol use, MELD sodium score 23/MELD 3.0 23
-Rhabdomyolysis
-Lactic acidosis
-Chronic microcytic anemia
-Mild thrombocytopenia
-Coagulopathy, elevated INR 2.3
-Elevated LFTs
-UTI
-Hypoxia
-Current cigarette smoker
-Psoriasis, diffuse lesions throughout body
04/30/2023 paracentesis: 10,000 cc of clear dark yellow ascitic fluid was removed. Fluid cell counts negative for SBP
04/30/23 chest x-ray: Mild pulmonary edema similar to prior examination.
Recommendations:
Repeat paracentesis today. Give IV albumin
Continue lasix 40/adlactone 100
Abx not needed for ascites (negative SBP). Continue if needed to rx UTI
Reinforced need for EtOH abstinence
Continue lactulose POq4, titrate to 3 loose BMs per day
Subjective
Subjective
Date of Service: May 03, 2023
Awake and alert answering questions appropriately. Denies abd pain
Objective
Data Reviewed
Laboratory Data:
Laboratory Results
05/03/23 03:26
05/03/23 03:26
Laboratory Results
PT 26.3 Sec (11.4-14.6) H 05/02/23 03:39
INR 2.39 05/02/23 03:39
Phosphorus 3.8 mg/dl (2.5-4.5) 04/30/23 05:25
Magnesium 1.9 mg/dl (1.6-2.3) 04/30/23 05:25
Total Bilirubin 3.6 mg/dl (0.2-1.3) H 05/03/23 03:26
AST 283 U/L (17-59) H 05/03/23 03:26
ALT 91 U/L (0-50) H 05/03/23 03:26
Alkaline Phosphatase 110 U/L (38-126) 05/03/23 03:26
Vital Signs and I&O:
Vital Signs
Temp Pulse Resp BP Pulse Ox
100.5 F H 102 18 105/61 94
05/03/23 03:11 05/03/23 07:52 05/03/23 07:52 05/03/23 06:00 05/03/23 07:52
I&O
05/02/23 05/03/23 05/04/23
06:59 06:59 06:59
Intake Total 720 / 720 2160 / 2160
Output Total 1700 / 1700 350 / 350
Balance -980 / -980 1810 / 1810
Physical Exam
Physical Exam
GI: Soft, Distended and Non Tender
[2023-05-03 09:42] LABS: Magnesium 1.8 mg/dl (1.6-2.3); Phosphorus 2.6 mg/dl (2.5-4.5)
[2023-05-03] MEDS: FOLVITE 50.2000000000000028 MG IV (09:51)
[2023-05-03] MEDS: MEPHYTON 5 MG PO (09:51)
[2023-05-03] MEDS: NICODERM TRANSDERMAL 21 MG TRANSDERM (13:00)
[2023-05-03 14:52] LABS: Body Fluid Mononuclear 68.3 %; Body Fluid Polymorphonuclear 31.7 %; Body Fluid WBC 63 /CUMM
[2023-05-03 14:53] LABS: Body Fluid Second Tech AMA
[2023-05-03 14:55] LABS: Body Fluid Albumin < 1.0 g/dl
[2023-05-03] MEDS: FLEXBUMIN 100 IV ×2 (15:21→18:03)
[2023-05-03] MEDS: DUPHALAC/CHRONULAC PO ×2 (15:31→21:00)
[2023-05-03] MEDS: FLEXBUMIN 50 IV (17:04)
[2023-05-03 17:25] LABS: Glucose - Point of Care 168 mg/dl (70-99)
--- NOTE | 2023-05-03 17:40 | CM ---
Patient with Dx Severe Traumatic Rhabdomyolysis, Alcoholic Cirrhosis with Ascites and Esophageal Varices, Aspiration pneumonitis, Acute hypoxic respiratory failure. Plan paracentesis today. Room air. MSAS per nursing. PT & OT 05/01 recommend
skilled rehab.
Spoke with TEDDY Ceballos; she is trying to get the patient accepted by [facility], however they would like the patient to be independent in his mobility without an assistive device. Agree to wait and see if patient's mobility
improves with next PT session, before sending another request and more clinicals. CM agrees to send updated therapy notes to her fax at [phone] if available today (no update available).
Plan continue to follow patient's progress with PT/OT.
Plan possible Inpatient [facility] if accepting facility found.
[2023-05-03] MEDS: STERILE WATER FOR INJECTION 20 ML IV (21:01)
[2023-05-03] MEDS: PROTONIX 40 MG PO (21:01)
[2023-05-03] MEDS: ROCEPHIN 2000 MG IV (21:01)
[2023-05-03] MEDS: FLUSH (NSS) 2 FLUSH IV (21:10)
[2023-05-03 21:11] LABS: Glucose - Point of Care 142 mg/dl (70-99)
--- NOTE | 2023-05-03 21:54 | PTCARENOTE ---
Pt received at beginning of shift resting in bed. AAOx3. Daughter at bedside. Pt slightly drowsy. Nicotine patch on left upper arm. Abdomen softly distended, full, ascitic. +BS. #25 CC intact draining shara urine. Pt has whole body psoriasis.
Numerous scabs throughout that pt constantly picks at. Scabs all over bedding and floor. Pt denies any pain or discomfort. Lactulose at side of bed from dinner time. Pt drank at approx 2100 so 2000 dose not given. Rest of assessment as documented.
Maintained on Q2hr turns. Call almeida remains within reach. Will continue to monitor.
[2023-05-04] VITALS (12 sets, daily range): BP systolic 88–114; BP diastolic 53–65; BMI 32.3
[2023-05-04] MEDS: DUPHALAC/CHRONULAC 20 GRAMS PO ×6 (01:14→20:29)
[2023-05-04 05:44] LABS: Hematocrit 23.6 % (39.0-52.0); Hemoglobin 7.7 g/dL (13.0-18.0); Mean Corp Hgb Conc. 32.6 g/dL (33.0-37.0); Mean Corpuscular Hgb 25.3 pg (27.0-31.0); Mean Corpuscular Volume 77.6 fL (80.0-94.0); Mean Platelet Volume 9.3 fL (7.4-10.4); Platelet Count 96 10^3/uL (130-400); Red Blood Cell Count 3.04 10^6/uL (4.70-6.10); Red Cell Dist. Width 26.3 % (11.5-14.5); White Blood Cell Count 6.5 10^3/uL (4.8-10.8)
[2023-05-04 06:11] LABS: ALT (SGPT) 68 U/L (0-50); AST (SGOT) 169 U/L (17-59); Albumin 2.5 g/dl (3.5-5.0); Alkaline Phosphatase 87 U/L (38-126); Blood Urea Nitrogen 9 mg/dl (9-20); Calcium 7.6 mg/dl (8.4-10.2); Carbon Dioxide 29 mmol/L (22-30); Chloride 101 mmol/L (98-107); Creatine Phosphokinase 659 U/L (55-170); Estimated Creatinine Clearance > 125 ml/min; Glucose 100 mg/dl (70-99); Magnesium 1.6 mg/dl (1.6-2.3); Phosphorus 2.8 mg/dl (2.5-4.5); Potassium 3.9 mmol/L (3.5-5.1); Sodium 131 mmol/L (135-145); Total Bilirubin 3.5 mg/dl (0.2-1.3); eGFR > 60.00
[2023-05-04 07:26] LABS: Glucose - Point of Care 117 mg/dl (70-99)
[2023-05-04] MEDS: DUONEB 3 ML INH ×4 (07:55→20:07)
--- NOTE | 2023-05-04 08:16 | W.PN.HOSP.TC ---
Today's Communication/Plan
-
see bold
Assessment / Plan
Assessment / Plan
HPI: 57y M with PMH significant for alcoholic cirrhosis who presents to ED c/o weakness after being found down on the floor this afternoon.
Severe Traumatic Rhabdomyolysis
Pigment Nephropathy
�-CPK trending down, is 659, was 1,294, was 2,567, was 3,762, was 10,069, was 21,048 upon admission
-Continue to trend CPK
Alcoholic Cirrhosis with Ascites and Esophageal Varices
Chronic Alcohol Use Disorder with alcohol dependency
�-Seen by GI, status post paracentesis 04/29 draining 10 L, he has received IV albumin
-Status post paracentesis 05/02 draining 8 L, he has received IV albumin
�-Continue rocephin, continue Lasix 40 mg p.o. daily, spironolactone 100 mg p.o. daily
�-Patient / family are interested in eventual inpatient rehab options.� CM consulted
-Thiamone/folic acid, MSAS protocol
Aspiration pneumonitis
Acute hypoxic respiratory failure
-Due to aspiration episode
-Cleared for regular diet per SPL
-Was requiring 15 L, now on RA
Hypothermia/fever 100.5
Systemic inflammatory response syndrome�persistent tachycardia
�- ? secondary to infection / sepsis versus cirrhosis.
�-TSH normal, continue Rocephin, bear hugger
�-Repeat blood cultures NTD, repeat chest x-ray neg for PNA, urine cx neg
Respiratory distress
-Secondary to ascites, resolved after paracentesis
-IV morphine as needed for dyspnea and pain
Lactic Acidosis
-Resolved
Hypokalemia
-Continue to replete prn, magnesium normal
Severe Psoriasis
�- Marked skin changes c/w advanced psoriasis over multiple surfaces - most severe on RLE, lower abdomen and perineum.
�- Continue triamcinolone ointment, wound care, recommend outpatient Derm evaluation.
�- Suspect that cirrhosis will limit his systemic therapeutic options.
Chronic Macrocytic Anemia
�-B12/folic acid normal
-Hemoglobin 7.7 today, down from 9.5 upon admission
-Transfuse for hemoglobin less than 7.0
Cigarette nicotine dependency
-Started nicotine patch
Hyponatremia
-From fluid overload, monitor
DVT Prophylaxis:� Subcut heparin
Code Status:� Full
Updated daughter on phone 04/30
Total time spent to see the patient on the floor, examine the patient, review data and lab results, discuss treatment plan with patient, nursing staff around 50 minutes.
Physical Exam
General: Appears acutely ill, no acute distress
HEENT: Normocephalic, Atraumatic, EOMI, MMM
Respiratory: Tachypnea, mild respiratory distress, bibasilar crackles
Cardiac: Normal S1/S2, tachycardic rate, regular rhythm
GI: Tense abdomen, distention improved from prior
Extremities: No Clubbing, Cyanosis
Bilateral lower extremity edema noted
Neuro: Awake/alert
Bilateral hand tremors noted
Psych: Appears anxious
Derm: Severe psoriatic plaque on bilateral lower extremities, right greater than left
Anticipated Discharge: > 48 hours
Subjective/Interval History
-
Date of Service: May 03, 2023
Patient denies chest pain, shortness of breath, palpitations. No abdominal pain, no vomiting. He feels much better after having 8 L drained.
Objective Data
-
Vital Signs:
Vital Signs
Temp Pulse Resp BP Pulse Ox
100.3 F 106 20 102/56 97
05/03/23 15:49 05/03/23 15:20 05/03/23 15:20 05/03/23 14:56 05/03/23 15:20
I&O
05/02/23 05/03/23 05/04/23
06:59 06:59 06:59
Intake Total 720 / 720 2160 / 2160 480 / 480
Output Total 1700 / 1700 350 / 350
Balance -980 / -980 1810 / 1810 480 / 480
[2023-05-04] MEDS: NICODERM TRANSDERMAL 21 MG TRANSDERM (08:49)
[2023-05-04] MEDS: HEPARIN 5000 UNITS SC ×2 (08:51→20:29)
[2023-05-04] MEDS: LASIX 40 MG PO (08:52)
[2023-05-04] MEDS: PROTONIX 40 MG PO ×2 (08:53→20:29)
[2023-05-04] MEDS: ALDACTONE 100 MG PO (08:53)
[2023-05-04] MEDS: HYDROPHOR 1 APPLIC TOPICAL (08:54)
[2023-05-04] MEDS: FOLVITE 50.2000000000000028 MG IV (09:20)
[2023-05-04] MEDS: TRIAMCINOLONE 0.1% OINTMENT 1 APPLIC TOPICAL ×3 (09:21→21:30)
--- NOTE | 2023-05-04 09:31 | W.PN.GI.CBS2 ---
Today's Communication / Plan
-
Paracentesis 8L yesterday, negative for SBP. IV albumin 62.5g given
Pt agreeable to inpatient rehab
Cont lasix 40mg, aldactone 100mg
Cont lactulose PO, titrate to 3 loose BMs per day
Not much to add at this point. Will sign off. Please call back if needed.
F/U with GI as outpt
Assessment / Plan
-
Summary: 57 yo male with a PMH significant for decompensated liver cirrhosis with recurrent ascites and ongoing alcohol use, psoriasis, current cigarette smoker, who presented to the emergency room with complaints of weakness. We are being asked to
evaluate for his decompensated cirrhosis and significant ascites. He is well-known to us in our office for history of decompensated liver cirrhosis with significant ascites. He was last seen in the office in February scheduled for blood work and
outpatient paracentesis which he did not complete. He is continue to drink alcohol in the interim with further decompensation of his liver disease with ongoing ascites. He was found on the floor with a CPK greater than 20,000 consistent for
rhabdomyolysis. Lactic acid 11 on admission. He was started on 2 g of ceftriaxone IV to cover for SBP with significant ascites. Pending IR for paracentesis. He was started on IV Lasix along with IV fluids. His last alcoholic beverage was 2
prior to admission .
Problem list:
-Decompensated alcoholic liver cirrhosis with recurrent ascites and ongoing alcohol use, MELD sodium score 23/MELD 3.0 23
-Rhabdomyolysis
-Lactic acidosis
-Chronic microcytic anemia
-Mild thrombocytopenia
-Coagulopathy, elevated INR 2.3
-Elevated LFTs
-UTI
-Hypoxia
-Current cigarette smoker
-Psoriasis, diffuse lesions throughout body
04/30/2023 paracentesis: 10,000 cc of clear dark yellow ascitic fluid was removed. Fluid cell counts negative for SBP
04/30/23 chest x-ray: Mild pulmonary edema similar to prior examination.
Subjective
Subjective
Date of Service: May 04, 2023
No complaints. Feels better after paracentesis- 8060ml removed
Objective
Data Reviewed
Laboratory Data:
Laboratory Results
05/04/23 05:24
05/04/23 05:24
Laboratory Results
PT 26.3 Sec (11.4-14.6) H 05/02/23 03:39
INR 2.39 05/02/23 03:39
Phosphorus 2.8 mg/dl (2.5-4.5) 05/04/23 05:24
Magnesium 1.6 mg/dl (1.6-2.3) 05/04/23 05:24
Total Bilirubin 3.5 mg/dl (0.2-1.3) H 05/04/23 05:24
AST 169 U/L (17-59) H 05/04/23 05:24
ALT 68 U/L (0-50) H 05/04/23 05:24
Alkaline Phosphatase 87 U/L (38-126) 05/04/23 05:24
Vital Signs and I&O:
Vital Signs
Temp Pulse Resp BP Pulse Ox
98.7 F 97 22 98/67 97
05/04/23 07:40 05/04/23 08:52 05/04/23 07:56 05/04/23 08:52 05/04/23 07:56
I&O
05/03/23 05/04/23 05/05/23
06:59 06:59 06:59
Intake Total 2160 / 2160 480 / 480
Output Total 350 / 350
Balance 1810 / 1810 480 / 480
Physical Exam
Physical Exam
GI: Soft, Distended and Non Tender
[2023-05-04 11:57] LABS: Glucose - Point of Care 115 mg/dl (70-99)
[2023-05-04] MEDS: MAGNESIUM SULFATE 100 IV (14:23)
[2023-05-04] MEDS: KCL 10 MEQ PO (14:48)
--- NOTE | 2023-05-04 14:57 | PTCARENOTE ---
Pt aAOx3 MAG Jerome as ordered. Pt cooperative
[2023-05-04] MEDS: ROCEPHIN 2000 MG IV (21:29)
[2023-05-04] MEDS: STERILE WATER FOR INJECTION 20 ML IV (21:30)
[2023-05-05] VITALS (12 sets, daily range): BP systolic 93–118; BP diastolic 60–73; BMI 32.0
[2023-05-05] MEDS: DUPHALAC/CHRONULAC 20 GRAMS PO ×5 (00:10→20:07)
--- NOTE | 2023-05-05 02:35 | PTCARENOTE ---
Assumed care of Pt from day RN. Pt appeared to be resting comfortably in bed, respiration even and unlabored. Pt having itching in dry areas, ointments applied. Pt has no other complaints at this time. Assessment care and vitals as documented.
[2023-05-05 05:12] LABS: Hemoglobin 7.8 g/dL (13.0-18.0); Mean Corp Hgb Conc. 32.5 g/dL (33.0-37.0); Mean Corpuscular Hgb 25.2 pg (27.0-31.0); Mean Corpuscular Volume 77.7 fL (80.0-94.0); Platelet Count 102 10^3/uL (130-400); Red Blood Cell Count 3.09 10^6/uL (4.70-6.10); Red Cell Dist. Width 26.7 % (11.5-14.5); White Blood Cell Count 7.3 10^3/uL (4.8-10.8)
[2023-05-05 05:38] LABS: ALT (SGPT) 57 U/L (0-50); AST (SGOT) 122 U/L (17-59); Albumin 2.3 g/dl (3.5-5.0); Alkaline Phosphatase 80 U/L (38-126); Blood Urea Nitrogen 9 mg/dl (9-20); Calcium 7.5 mg/dl (8.4-10.2); Carbon Dioxide 26 mmol/L (22-30); Chloride 102 mmol/L (98-107); Creatine Phosphokinase 385 U/L (55-170); Estimated Creatinine Clearance > 125 ml/min; Glucose 96 mg/dl (70-99); Magnesium 1.6 mg/dl (1.6-2.3); Phosphorus 3.6 mg/dl (2.5-4.5); Potassium 4.1 mmol/L (3.5-5.1); Sodium 129 mmol/L (135-145); Total Bilirubin 3.1 mg/dl (0.2-1.3); Total Protein 5.8 g/dl (6.3-8.2); eGFR > 60.00
[2023-05-05] MEDS: DUONEB 3 ML INH (07:56)
--- NOTE | 2023-05-05 08:13 | W.PN.HOSP.TC ---
Today's Communication/Plan
-
see bold
Assessment / Plan
Assessment / Plan
HPI: 57y M with PMH significant for alcoholic cirrhosis who presents to ED c/o weakness after being found down on the floor this afternoon.
Severe Traumatic Rhabdomyolysis
Pigment Nephropathy
�-CPK trending down, is 385, was 659, was 1,294, was 2,567, was 3,762, was 10,069, was 21,048 upon admission
-Continue to trend CPK
Alcoholic Cirrhosis with Ascites and Esophageal Varices
Chronic Alcohol Use Disorder with alcohol dependency
�-Seen by GI, status post paracentesis 04/29 draining 10 L, he has received IV albumin
-Status post paracentesis 05/02 draining 8 L, he has received IV albumin
�-S/p rocephin x 7 days, continue Lasix 40 mg p.o. daily, spironolactone 100 mg p.o. daily
�-Patient / family are interested in eventual inpatient rehab options.� CM consulted
-Thiamone/folic acid, MSAS protocol
-GI signed off
-Likely will need another paracentesis in a few days, definitely prior to discharge
Aspiration pneumonitis
Acute hypoxic respiratory failure
-Due to aspiration episode
-Cleared for regular diet per SPL
-Was requiring 15 L, now on RA
Hypothermia/fever 100.5
Systemic inflammatory response syndrome�persistent tachycardia
�- ? secondary to infection / sepsis versus cirrhosis.
�-TSH normal, s/p Rocephin x 7 days, bear hugger
�-Repeat blood cultures NTD, repeat chest x-ray neg for PNA, urine cx neg
Hyponatremia
- From fluid overload from liver cirrhosis and hypoalbuminemia of 2.3
- Na 129, continue diuretics as above
- Start fluid restriction
Respiratory distress
-Secondary to ascites, resolved after paracentesis
-IV morphine as needed for dyspnea and pain
Lactic Acidosis
-Resolved
Hypokalemia
-Continue to replete prn, magnesium normal
Severe Psoriasis
�- Marked skin changes c/w advanced psoriasis over multiple surfaces - most severe on RLE, lower abdomen and perineum.
�- Continue triamcinolone ointment, wound care, recommend outpatient Derm evaluation.
�- Suspect that cirrhosis will limit his systemic therapeutic options.
Chronic Macrocytic Anemia
�-B12/folic acid normal
-Hemoglobin 7.8 today, down from 9.5 upon admission
-Transfuse for hemoglobin less than 7.0
Cigarette nicotine dependency
-Started nicotine patch
DVT Prophylaxis:� Subcut heparin
Code Status:� Full
Updated daughter on phone 05/04
Total time spent to see the patient on the floor, examine the patient, review data and lab results, discuss treatment plan with patient, nursing staff around 50 minutes.
Physical Exam
General: Appears acutely ill, no acute distress
HEENT: Normocephalic, Atraumatic, EOMI, MMM
Respiratory: Tachypnea, mild respiratory distress, bibasilar crackles
Cardiac: Normal S1/S2, tachycardic rate, regular rhythm
GI: Tense abdomen, distention improved from prior
Extremities: No Clubbing, Cyanosis
Bilateral lower extremity edema noted
Neuro: Awake/alert
Bilateral hand tremors noted
Psych: Appears anxious
Derm: Severe psoriatic plaque on bilateral lower extremities, right greater than left
Anticipated Discharge: 24 - 48 hours
Subjective/Interval History
-
Date of Service: May 04, 2023
Patient denies chest pain, shortness of breath, palpitations.� No abdominal pain, no vomiting. No fever.
Objective Data
-
Labs:
Laboratory Results
05/04/23
05:24
WBC 6.5
Hgb 7.7 L
Hct 23.6 L
Plt Count 96 L
Sodium 131 L
Potassium 3.9 D
Chloride 101
Carbon Dioxide 29
BUN 9
Creatinine 0.6 L
Glucose 100 H
Calcium 7.6 L
Total Bilirubin 3.5 H
AST 169 H
ALT 68 H
Alkaline Phosphatase 87
Vital Signs:
Vital Signs
Temp Pulse Resp BP Pulse Ox
98.5 F 100 22 104/56 96
05/04/23 11:24 05/04/23 11:17 05/04/23 11:17 05/04/23 10:00 05/04/23 11:17
I&O
05/03/23 05/04/23 05/05/23
06:59 06:59 06:59
Intake Total 2160 / 2160 480 / 480 210 / 210
Output Total 350 / 350 800 / 800
Balance 1810 / 1810 480 / 480 -590 / -590
[2023-05-05] MEDS: LASIX 40 MG PO (09:02)
[2023-05-05] MEDS: ALDACTONE 100 MG PO (09:02)
[2023-05-05] MEDS: PROTONIX 40 MG PO ×2 (09:02→20:06)
[2023-05-05] MEDS: NICODERM TRANSDERMAL 21 MG TRANSDERM (09:02)
[2023-05-05] MEDS: TRIAMCINOLONE 0.1% OINTMENT 1 APPLIC TOPICAL ×3 (09:03→21:19)
[2023-05-05] MEDS: HEPARIN 5000 UNITS SC ×2 (09:03→20:06)
[2023-05-05] MEDS: FOLVITE 50.2000000000000028 MG IV (09:03)
[2023-05-05] MEDS: HYDROPHOR 1 APPLIC TOPICAL (09:04)
[2023-05-05] MEDS: DUPHALAC/CHRONULAC PO ×2 (11:51→23:15)
--- NOTE | 2023-05-05 13:38 | CM ---
Patient with Dx Severe Traumatic Rhabdomyolysis, Alcoholic Cirrhosis with Ascites and Esophageal Varices, Aspiration pneumonitis, Acute hypoxic respiratory failure, s/p paracentesis. Room air. Seen by wound care nurse. PT 05/01 & OT 04/30 recommend
skilled rehab.
TEDDY was attempting to get patient accepted at [facility] who had previously taken patients with some medical needs, however they would like the patient to be independent in his mobility without an assistive device. Referral
there on hold until patient's mobility needs determined - agree with Lin ESPINAL to wait and see if patient's mobility improves with next PT session, before sending another request to [facility].
Message with PT/OT weekend staff: hoping patient can be seen again soon for PT/OT. Need to determine if he is likely going to be independent in his mobility by d/c so he can go to [facility] for [facility], otherwise can try for SNF. Agree
patient will be seen tomorrow.
Plan continue to follow patient's progress with PT/OT.
Plan possible [facility] if accepting facility found, vs SNF for rehab.
[2023-05-05] MEDS: ROCEPHIN 2000 MG IV (21:17)
[2023-05-05] MEDS: STERILE WATER FOR INJECTION 20 ML IV (21:18)
[2023-05-06] VITALS (9 sets, daily range): BP systolic 93–118; BP diastolic 64–72; PULSE 101; BMI 31.3
--- NOTE | 2023-05-06 | PTCARENOTE ---
Pt had complaint about IV in right arm. IV team placed new in left arm. (see work list for details) Pt refused to take dose of Lactulose in evening risk & benefits explained.
[2023-05-06] MEDS: DUPHALAC/CHRONULAC 20 GRAMS PO ×6 (03:45→22:08)
[2023-05-06 04:23] LABS: Hemoglobin 8.1 g/dL (13.0-18.0); Mean Corp Hgb Conc. 32.4 g/dL (33.0-37.0); Mean Corpuscular Hgb 25.6 pg (27.0-31.0); Mean Corpuscular Volume 78.9 fL (80.0-94.0); Mean Platelet Volume 9.4 fL (7.4-10.4); Platelet Count 139 10^3/uL (130-400); Red Blood Cell Count 3.17 10^6/uL (4.70-6.10); Red Cell Dist. Width 26.9 % (11.5-14.5); White Blood Cell Count 7.6 10^3/uL (4.8-10.8)
[2023-05-06 05:09] LABS: ALT (SGPT) 55 U/L (0-50); AST (SGOT) 110 U/L (17-59); Albumin 2.3 g/dl (3.5-5.0); Alkaline Phosphatase 81 U/L (38-126); Blood Urea Nitrogen 10 mg/dl (9-20); Calcium 7.5 mg/dl (8.4-10.2); Carbon Dioxide 26 mmol/L (22-30); Chloride 100 mmol/L (98-107); Creatine Phosphokinase 270 U/L (55-170); Estimated Creatinine Clearance > 125 ml/min; Glucose 101 mg/dl (70-99); Magnesium 1.6 mg/dl (1.6-2.3); Phosphorus 3.6 mg/dl (2.5-4.5); Potassium 3.9 mmol/L (3.5-5.1); Sodium 128 mmol/L (135-145); eGFR > 60.00
--- NOTE | 2023-05-06 07:47 | W.PN.HOSP.TC ---
Addendum entered and electronically signed by Ambrose Rouse DO 05/06/23 13:53:
Sepsis due to aspiration pneumonitis - likely POA.
Original Note:
Today's Communication/Plan
-
Transfer to [facility]
Discharge planning
Assessment / Plan
Assessment / Plan
Gen-AAOx3, NAD
HEENT-NC, AT, anicteric, clear oral mm
Neck-supple
CV-reg, no M, +S1/S2
Lungs-clear B/L
Abd-distended, nontender
Ext-bilateral lower extremity edema
Musculoskeletal-no cyanosis, clubbing
Skin-warm and dry, psoriatic plaques on lower extremities
Neuro-grossly non-focal
Psych-calm, cooperative
Severe Traumatic Rhabdomyolysis -resolved.
Alcoholic Cirrhosis with Ascites and Esophageal Varices
Chronic Alcohol Use Disorder with alcohol dependency
�-Seen by GI, status post paracentesis 04/29 draining 10 L, he has received IV albumin
-Status post paracentesis 05/02 draining 8 L, he has received IV albumin
�-S/p rocephin x 7 days, continue Lasix 40 mg p.o. daily, spironolactone 100 mg p.o. daily
�-Patient / family are interested in eventual inpatient rehab options.� CM consulted
-Thiamine/folic acid, MSAS protocol
Aspiration pneumonitis
Acute hypoxic respiratory failure -Due to aspiration episode. Hypoxia resolved. Now on room air.
Hypothermia/fever 100.5
Systemic inflammatory response syndrome�persistent tachycardia
�- ? secondary to infection / sepsis versus cirrhosis.
�-TSH normal, s/p Rocephin x 7 days, bear hugger
�-Repeat blood cultures NTD, repeat chest x-ray neg for PNA, urine cx neg
Hyponatremia -sodium dropping, 128. Change fluid restriction to 40 ounces daily.
- From fluid overload from liver cirrhosis and hypoalbuminemia of 2.3
Lactic Acidosis -Resolved
Hypokalemia - resolved.
Severe Psoriasis
�- Marked skin changes c/w advanced psoriasis over multiple surfaces - most severe on RLE, lower abdomen and perineum.
�- Continue triamcinolone ointment, wound care, recommend outpatient Derm evaluation.
�- Suspect that cirrhosis will limit his systemic therapeutic options.
Chronic Microcytic Anemia -baseline hemoglobin unknown. Was 7.6 in October. Admission hemoglobin 9.5 but suspect hemoconcentration. Hemoglobin 8.1 today. Iron saturation normal. B12 and folic acid normal.
Tobacco dependence -Continue nicotine patch
DVT Prophylaxis:� Subcut heparin
Code Status:� Full
Dispo -awaiting transfer to [facility].
Transfer to [facility]
Anticipated Discharge: Within 24 hours
Subjective/Interval History
-
Date of Service: May 06, 2023
Preoperative exam. Eating breakfast. No complaints.
Objective Data
-
Labs:
Laboratory Results
05/06/23
04:02
WBC 7.6
Hgb 8.1 L
Hct 25.0 L
Plt Count 139 D
Sodium 128 L
Potassium 3.9
Chloride 100
Carbon Dioxide 26
BUN 10
Creatinine 0.6 L
Glucose 101 H
Calcium 7.5 L
Total Bilirubin 3.0 H
AST 110 H
ALT 55 H
Alkaline Phosphatase 81
Vital Signs:
Vital Signs
Temp Pulse Resp BP Pulse Ox
98.9 F 86 19 101/66 98
05/06/23 07:20 05/06/23 06:00 05/06/23 06:00 05/06/23 06:00 05/06/23 04:41
I&O
05/05/23 05/06/23 05/07/23
06:59 06:59 06:59
Intake Total 1910 / 1910 260 / 260
Output Total 1725 / 1725 600 / 600
Balance 185 / 185 -340 / -340
Review of Systems
-
History Source: Patient
All other systems: Reviewed and negative
[2023-05-06] MEDS: ALDACTONE 100 MG PO (07:54)
[2023-05-06] MEDS: PROTONIX 40 MG PO ×2 (07:54→19:32)
[2023-05-06] MEDS: NICODERM TRANSDERMAL 21 MG TRANSDERM (07:54)
[2023-05-06] MEDS: TRIAMCINOLONE 0.1% OINTMENT 1 APPLIC TOPICAL ×3 (07:56→22:08)
[2023-05-06] MEDS: HEPARIN 5000 UNITS SC ×2 (07:58→19:32)
[2023-05-06] MEDS: LASIX 40 MG PO ×2 (08:09→19:32)
[2023-05-06] MEDS: FOLVITE 1 MG PO (08:09)
[2023-05-06] MEDS: HYDROPHOR 1 APPLIC TOPICAL (08:10)
--- NOTE | 2023-05-06 11:37 | CM ---
Spoke with Lin Cevallos [phone] .
PT OT winnie and note faxed to [phone] [facility] to attempt to get accepted at [facility] in pt treatment.[facility] will call back with determination.
As per PT NIKKI prasad pt needs SNF.
If needs SNF will need auth with [facility].
PLAN SNF VS inpatient treatment center
--- NOTE | 2023-05-06 12:19 | PN.CDI ---
CDI
- -
CDI:
Physician Documentation Request
Admit Date: 04/29/23 22:50
Dear Doctor Nasim,
Clinical Indicators:
Patient admitted with traumatic rhabdomyolysis.
04/30 PN, 'Aspiration pneumonitis Acute hypoxic respiratory failure...Hypothermia/fever 100.5
Systemic inflammatory response syndrome.'
05/05 Hospitalist PN, 'Hypothermia�- ? secondary to infection / sepsis versus cirrhosis.'
Rocephin IV given x 7 days.
Please clarify the following:
Sepsis, please indicate if POA
SIRS only
Other, please specify
Use of terms such as suspected, likely, concern for, or probable (associated with a specific diagnosis that is being evaluated, monitored, or treated as if it exists) are acceptable and can be coded in the inpatient setting, when documented at the
time of discharge.
Thank you,
KENDALL Funez RN
CDI Specialist
available via tiger text
Please use your independent medical judgment in providing your response.
[2023-05-07] MEDS: DUPHALAC/CHRONULAC PO (03:10)
[2023-05-07 06:00] VITALS: BMI 31.4
[2023-05-07 06:11] LABS: Hemoglobin 7.8 g/dL (13.0-18.0); Mean Corp Hgb Conc. 31.2 g/dL (33.0-37.0); Mean Corpuscular Hgb 25.2 pg (27.0-31.0); Mean Corpuscular Volume 80.6 fL (80.0-94.0); Mean Platelet Volume 9.2 fL (7.4-10.4); Platelet Count 154 10^3/uL (130-400); Red Cell Dist. Width 27.4 % (11.5-14.5); White Blood Cell Count 7.7 10^3/uL (4.8-10.8)
[2023-05-07 06:24] LABS: ALT (SGPT) 48 U/L (0-50); AST (SGOT) 85 U/L (17-59); Albumin 2.3 g/dl (3.5-5.0); Alkaline Phosphatase 117 U/L (38-126); Blood Urea Nitrogen 9 mg/dl (9-20); Calcium 7.8 mg/dl (8.4-10.2); Carbon Dioxide 28 mmol/L (22-30); Chloride 97 mmol/L (98-107); Estimated Creatinine Clearance > 125 ml/min; Glucose 103 mg/dl (70-99); Sodium 130 mmol/L (135-145); Total Bilirubin 2.4 mg/dl (0.2-1.3); eGFR > 60.00
[2023-05-07 06:29] LABS: Potassium 3.5 mmol/L (3.5-5.1)
--- NOTE | 2023-05-07 08:03 | W.PN.HOSP.TC ---
Today's Communication/Plan
-
Add oral KCl
Check Doppler ultrasound lower extremities
Continue PT
Await SNF
Assessment / Plan
Assessment / Plan
Gen-AAOx3, NAD
HEENT-NC, AT, anicteric, clear oral mm
Neck-supple
CV-reg, no M, +S1/S2
Lungs-clear B/L
Abd-distended, nontender
Ext-bilateral lower extremity edema
Musculoskeletal-no cyanosis, clubbing
Skin-warm and dry, psoriatic plaques on lower extremities
Neuro-grossly non-focal
Psych-calm, cooperative
Severe Traumatic Rhabdomyolysis -resolved.
Alcoholic Cirrhosis with Ascites and Esophageal Varices
Chronic Alcohol Use Disorder with alcohol dependency
�-Seen by GI, status post paracentesis 04/29 draining 10 L, he has received IV albumin
-Status post paracentesis 05/02 draining 8 L, he has received IV albumin
�-S/p rocephin x 7 days, continue Lasix 40 mg p.o. twice daily, spironolactone 100 mg p.o. daily
�-Patient / family are interested in eventual inpatient rehab options.� CM consulted
-Thiamine/folic acid, MSAS protocol
Sepsis due to aspiration pneumonitis -sepsis resolved.
Acute hypoxic respiratory failure -Due to aspiration episode. Hypoxia resolved. Now on room air.
�-TSH normal, s/p Rocephin x 7 days, bear hugger
�-Repeat blood cultures NTD, repeat chest x-ray neg for PNA, urine cx neg
Hyponatremia -sodium 130. Continue fluid restriction 40 ounces daily.
- From fluid overload from liver cirrhosis and hypoalbuminemia of 2.3
Severe bilateral lower extremity edema -right greater than left lower extremity edema. Etiology most likely due to volume overload, cirrhosis, hypoalbuminemia. Will also check Doppler ultrasound of lower extremities to rule out DVT for
completeness.
Lactic Acidosis -Resolved
Hypokalemia -start daily potassium supplementation.
Severe Psoriasis
�- Marked skin changes c/w advanced psoriasis over multiple surfaces - most severe on RLE, lower abdomen and perineum.
�- Continue triamcinolone ointment, wound care, recommend outpatient Derm evaluation. Discussed with patient to obtain a multiplex operator as soon as possible, he currently does not see one.
�- Suspect that cirrhosis will limit his systemic therapeutic options.
Chronic Microcytic Anemia -baseline hemoglobin unknown. Was 7.6 in October. Admission hemoglobin 9.5 but suspect hemoconcentration. Hemoglobin 7.8 today. Iron saturation normal. B12 and folic acid normal.
Tobacco dependence -Continue nicotine patch
DVT Prophylaxis:� Subcut heparin
Code Status:� Full
Dispo -awaiting transfer to [facility].
Transfer to [facility]
Anticipated Discharge: Today
Subjective/Interval History
-
Date of Service: May 07, 2023
Patient seen and examined. Complaining of frequent urination from Lasix.
Objective Data
-
Labs:
Laboratory Results
05/07/23
05:09
WBC 7.7
Hgb 7.8 L
Hct 25.0 L
Plt Count 154
Sodium 130 L
Potassium 3.5
Chloride 97 L
Carbon Dioxide 28
BUN 9
Creatinine 0.5 L
Glucose 103 H
Calcium 7.8 L
Total Bilirubin 2.4 H
AST 85 H
ALT 48
Alkaline Phosphatase 117
Vital Signs:
Vital Signs
Temp Pulse Resp BP Pulse Ox
98.3 F 105 20 102/64 96
05/06/23 23:59 05/06/23 23:59 05/06/23 23:59 05/06/23 23:59 05/06/23 23:59
I&O
05/06/23 05/07/23 05/08/23
06:59 06:59 06:59
Intake Total 260 / 260 240 / 240
Output Total 600 / 600 1400 / 1400
Balance -340 / -340 -1160 / -1160
Review of Systems
-
History Source: Patient
All other systems: Reviewed and negative
[2023-05-07] MEDS: HEPARIN 5000 UNITS SC ×2 (08:08→20:30)
[2023-05-07] MEDS: LASIX 40 MG PO ×2 (08:08→20:30)
[2023-05-07] MEDS: PROTONIX 40 MG PO ×2 (08:08→20:30)
[2023-05-07] MEDS: FOLVITE 1 MG PO (08:09)
[2023-05-07] MEDS: NICODERM TRANSDERMAL 21 MG TRANSDERM (08:09)
[2023-05-07] MEDS: ALDACTONE 100 MG PO (08:09)
[2023-05-07] MEDS: TRIAMCINOLONE 0.1% OINTMENT 1 APPLIC TOPICAL ×3 (08:11→20:37)
[2023-05-07] MEDS: DUPHALAC/CHRONULAC 20 GRAMS PO ×5 (08:12→22:59)
[2023-05-07] MEDS: HYDROPHOR 1 APPLIC TOPICAL (08:12)
[2023-05-07] MEDS: KCL 40 MEQ PO (08:16)
[2023-05-07 08:30] VITALS: BP 108/85
[2023-05-07 09:58] LABS: Body Fluid Mononuclear 69.5 %; Body Fluid Polymorphonuclear 30.5 %; Body Fluid WBC 108 /CUMM
[2023-05-07 10:03] LABS: Body Fluid Second Tech SS
--- NOTE | 2023-05-07 12:13 | PTCARENOTE ---
Patient AAOx3. Abdomen soft since having paracentesis this morning (removed 10L), patient feels relief of weight on abdomen. Right abdominal bandaid CDI. +2 pitting LE edema. B/L LE US done, awaiting results. Soriasis rash over most of body, creams
applied as ordered. Patient awaiting m/s bed. VSS. Making needs known. Continuing to monitor patient.
[2023-05-07] MEDS: FLEXBUMIN 100 IV ×2 (13:32→21:19)
[2023-05-07 16:21] VITALS: BP 104/55
[2023-05-07 20:28] VITALS: BP 117/49
[2023-05-07 23:23] VITALS: BP 108/62
[2023-05-08] MEDS: DUPHALAC/CHRONULAC 20 GRAMS PO ×2 (04:56→08:31)
[2023-05-08 06:11] LABS: % Eosinophils 2.2 % (0-6); % Immature Granulocytes 0.6 % (0-0.5); % Lymphocytes 20.4 % (20.5-51.1); % Monocytes 19.9 % (1.7-9.3); % Neutrophils 55.9 % (42.2-75.2); Absolute Basophils 0.1 10^3/uL (0-0.2); Absolute Eosinophils 0.2 10^3/uL (0-0.7); Absolute Lymphocytes 1.4 10^3/uL (1.2-3.4); Absolute Monocytes 1.4 10^3/uL (0.1-0.6); Absolute Neutrophils 3.9 10^3/uL (1.4-6.5); Mean Corpuscular Hgb 26.5 pg (27.0-31.0); Mean Corpuscular Volume 82.8 fL (80.0-94.0); Mean Platelet Volume 9.1 fL (7.4-10.4); Nucleated Red Blood Cells % 0 % (-); Platelet Count 177 10^3/uL (130-400); Red Blood Cell Count 3.02 10^6/uL (4.70-6.10); Red Cell Dist. Width 27.7 % (11.5-14.5); White Blood Cell Count 6.9 10^3/uL (4.8-10.8)
[2023-05-08 06:39] LABS: ALT (SGPT) 40 U/L (0-50); AST (SGOT) 71 U/L (17-59); Albumin 2.5 g/dl (3.5-5.0); Alkaline Phosphatase 78 U/L (38-126); Blood Urea Nitrogen 8 mg/dl (9-20); Calcium 7.8 mg/dl (8.4-10.2); Carbon Dioxide 28 mmol/L (22-30); Chloride 97 mmol/L (98-107); Estimated Creatinine Clearance > 125 ml/min; Glucose 91 mg/dl (70-99); Potassium 3.5 mmol/L (3.5-5.1); Sodium 133 mmol/L (135-145); Total Bilirubin 2.7 mg/dl (0.2-1.3); Total Protein 5.9 g/dl (6.3-8.2); eGFR > 60.00
[2023-05-08 07:52] VITALS: BP 113/57
[2023-05-08 08:17] LABS: Normal RBC Morphology No
[2023-05-08 08:18] LABS: Anisocytosis 1+
[2023-05-08 08:19] LABS: Hypochromasia 1+; Stomatocytes 1+; Target Cells 1+
[2023-05-08] MEDS: KCL 20 MEQ PO (08:31)
[2023-05-08] MEDS: ALDACTONE 100 MG PO (08:31)
[2023-05-08] MEDS: FOLVITE 1 MG PO (08:31)
[2023-05-08] MEDS: NICODERM TRANSDERMAL 21 MG TRANSDERM (08:31)
[2023-05-08] MEDS: HEPARIN 5000 UNITS SC (08:32)
[2023-05-08] MEDS: LASIX 40 MG PO (08:32)
[2023-05-08] MEDS: PROTONIX 40 MG PO (08:34)
[2023-05-08] MEDS: TRIAMCINOLONE 0.1% OINTMENT 1 APPLIC TOPICAL (08:35)
[2023-05-08] MEDS: HYDROPHOR 1 APPLIC TOPICAL (08:36)
--- NOTE | 2023-05-08 08:53 | CM ---
Late Entry for 05/07/23:
Patient with Dx Severe Traumatic Rhabdomyolysis, Alcoholic Cirrhosis with Ascites and Esophageal Varices, Aspiration pneumonitis, Acute hypoxic respiratory failure, s/p paracentesis. Room air. Seen by wound care nurse. PT & OT 05/06; SNF vs Inpt
[facility] rehab.
Spoke with TEDDY Ceballos; she provided [place] with update on patient's improved mobility and was waiting for callback re; acceptance.
Plan follow up with TEDDY for acceptance at [facility].
--- NOTE | 2023-05-08 08:55 | W.PN.HOSP.TC ---
Today's Communication/Plan
-
Discharge
Assessment / Plan
Assessment / Plan
Gen-AAOx3, NAD
HEENT-NC, AT, anicteric, clear oral mm
Neck-supple
CV-reg, no M, +S1/S2
Lungs-clear B/L
Abd-distended, nontender
Ext-bilateral lower extremity edema
Musculoskeletal-no cyanosis, clubbing
Skin-warm and dry, psoriatic plaques on lower extremities
Neuro-grossly non-focal
Psych-calm, cooperative
Severe Traumatic Rhabdomyolysis -resolved.
Alcoholic Cirrhosis with Ascites and Esophageal Varices
Chronic Alcohol Use Disorder with alcohol dependency
�-Seen by GI, status post paracentesis 04/29 draining 10 L, he has received IV albumin
-Status post paracentesis 05/02 draining 8 L, he has received IV albumin
- Third paracentesis done 05/06, 10 L drained, IV albumin administered.
�-S/p rocephin x 7 days, continue Lasix 40 mg p.o. twice daily, spironolactone 100 mg p.o. daily. Weight is down since admission.
�-Patient / family are interested in eventual inpatient rehab options.� CM consulted
-Thiamine/folic acid, MSAS protocol
Sepsis due to aspiration pneumonitis -sepsis resolved.
Acute hypoxic respiratory failure -Due to aspiration episode. Hypoxia resolved. Now on room air.
�-TSH normal, s/p Rocephin x 7 days, bear hugger
�-Repeat blood cultures NTD, repeat chest x-ray neg for PNA, urine cx neg
Hyponatremia -sodium 133, improving. Continue fluid restriction 40 ounces daily.
- From fluid overload from liver cirrhosis and hypoalbuminemia of 2.3
Severe bilateral lower extremity edema -right greater than left lower extremity edema. Etiology most likely due to volume overload, cirrhosis, hypoalbuminemia. Doppler ultrasound negative for DVT.
Lactic Acidosis -Resolved
Hypokalemia -start daily potassium supplementation.
Severe Psoriasis
�- Marked skin changes c/w advanced psoriasis over multiple surfaces - most severe on RLE, lower abdomen and perineum.
�- Continue triamcinolone ointment, wound care, recommend outpatient Derm evaluation. Discussed with patient to obtain a log operations coordinator as soon as possible, he currently does not see one.
�- Suspect that cirrhosis will limit his systemic therapeutic options.
Chronic Microcytic Anemia -baseline hemoglobin unknown. Was 7.6 in October. Admission hemoglobin 9.5 but suspect hemoconcentration. Hemoglobin 7.8 today. Iron saturation normal. B12 and folic acid normal.
Tobacco dependence -Continue nicotine patch
DVT Prophylaxis:� Subcut heparin
Code Status:� Full
Dispo -medically stable for discharge to inpatient alcohol rehab. Case management aware.
32 minutes spent in discharge process.
Anticipated Discharge: Today
Subjective/Interval History
-
Date of Service: May 08, 2023
Patient seen and examined. No complaints.
Objective Data
-
Labs:
Laboratory Results
05/08/23
05:18
WBC 6.9
Hgb 8.0 L
Hct 25.0 L
Plt Count 177
Sodium 133 L
Potassium 3.5
Chloride 97 L
Carbon Dioxide 28
BUN 8 L
Creatinine 0.6 L
Glucose 91
Calcium 7.8 L
Total Bilirubin 2.7 H
AST 71 H
ALT 40
Alkaline Phosphatase 78
Vital Signs:
Vital Signs
Temp Pulse Resp BP Pulse Ox
98.5 F 78 17 113/57 98
05/08/23 07:52 05/08/23 08:32 05/08/23 07:52 05/08/23 08:32 05/08/23 07:52
I&O
05/07/23 05/08/23 05/09/23
06:59 06:59 06:59
Intake Total 240 / 240 820 / 820
Output Total 1400 / 1400 425 / 425
Balance -1160 / -1160 395 / 395
Review of Systems
-
History Source: Patient
All other systems: Reviewed and negative
--- NOTE | 2023-05-08 09:04 | W.DS.TRANS ---
DC Summary - Manager Car
-
Discharge Instructions:
Discharge Diagnosis/Procedures Sepsis, aspiration pneumonitis, alcoholic
cirrhosis, ascites, hyponatremia, anemia
Diet 2 Gram Sodium,Other diet
Additional Diets 40 ounce daily fluid restriction
Activity As tolerated,With assistance
Driving Restrictions No driving
Bathing Restrictions None
Blood Work BMP in 1 week
CBC in 1 week
Instructions:
Stand-Alone Forms:
Changes to Home Medications: No
Discharge Medications:
DC Medications w/original date entered in [employer]
spironolactone 50 mg tablet 50 mg PO BID #60 tabs 12/09/21
cholecalciferol (vitamin D3) 50 mcg (2,000 unit) tablet 50 mcg PO DAILY Supplement 04/29/23
folic acid 1 mg tablet 1 mg PO DAILY #30 tabs 05/08/23
furosemide 40 mg tablet 40 mg PO BID #60 tabs 05/08/23
lactulose 10 gram/15 mL (15 mL) oral solution 20 g (30 mL) PO Q4HWA #1,440 mL 05/08/23
pantoprazole 40 mg tablet,delayed release 40 mg PO BID #60 tabs 05/08/23
potassium chloride 20 mEq tablet,extended release(part/cryst) 20 meq PO DAILY #30 tabs 05/08/23
triamcinolone acetonide 0.1 % topical ointment 1 applic topical TID #30 grams 05/08/23
Home Medication Changes
Pending Results: No
[2023-05-08] MEDS: DUPHALAC/CHRONULAC PO (13:24)
[2023-05-08 13:59] VITALS: BP 103/53
--- NOTE | 2023-05-08 14:20 | CM ---
Reviewed the chart notes. The patient is being discharged to go to [facility] for inpatient rehab. [facility] liaison Lin arranged for placement. The patient's daughter will transport to the facility. CM continues to be available
to patient/family and is monitoring medical plan for needs at discharge.
Plan: Discharge to [facility] today. Daughter to transport.
== END 2023-05-08 15:19 | disposition other institution (70) | DRG 871 ==
LOC: 2 NORTH 22:50
PROVIDERS: Family Medicine; Nurse Practitioner; Nurse Practitioner Family; Radiology Diagnostic Radiology; Radiology Vascular & Interventional Radiology; ADMITTING PHYSICIAN Hospitalist; ATTENDING PHYSICIAN Hospitalist; CONSULT PHYSICIAN Internal Medicine; EMERGENCY PHYSICIAN Emergency Medicine; FAMILY PHYSICIAN Family Medicine
PROC: 0W9G3ZZ Drainage of Peritoneal Cavity, Percutaneous Approach (ICD-10-PCS; 2023-04-30)
DX: A41.9 Sepsis, unspecified organism (principal); J69.0 Pneumonitis due to inhalation of food and vomit; J96.01 Acute respiratory failure with hypoxia; I85.10 Secondary esophageal varices without bleeding; E87.1 Hypo-osmolality and hyponatremia; K76.6 Portal hypertension; E87.20 Acidosis, unspecified; T79.6XXA Traumatic ischemia of muscle, initial encounter; K70.31 Alcoholic cirrhosis of liver with ascites; F10.10 Alcohol abuse, uncomplicated; E87.6 Hypokalemia; W08.XXXA Fall from other furniture, initial encounter; L40.8 Other psoriasis; F17.200 Nicotine dependence, unspecified, uncomplicated; N14.11 Contrast-induced nephropathy; Z91.148 Patient's other noncompliance with medication regimen for other reason
CPT/HCPCS: 88305; 49083; 71045; 80048; 80053; 80076; 81003; 81015; 82042; 82140; 82248; 82550; 82607; 82746; 82962; 83540; 83550; 83605; 83615; 83735; 83880; 84100; 84157; 84443; 85014; 85018; 85025; 85027; 85610; 87015; 87040; 87070; 87086; 87205; 88112; 88341; 88342; 89051; 92526; 92610; 93005; 93970; 94640; 96361; 96374; 97116; 97163; 97167; 97530; 97535; 99285; 99406; P9047

== ENCOUNTER → 2023-05-27 07:05 | Outpatient (REF) | payer OTHER, SELFPAY ==
[2023-05-27 07:35] VITALS: BP 130/77; BP_SYST 103
[2023-05-27 08:50] VITALS: BP 122/72; BP_SYST 98
[2023-05-27 09:11] VITALS: BP 122/72
[2023-05-27 09:59] LABS: Body Fluid Mononuclear 81.5 %; Body Fluid Polymorphonuclear 18.5 %; Body Fluid WBC 81 /CUMM
[2023-05-27 10:22] LABS: Body Fluid Second Tech EM
== END ==
LOC: RADI 07:05
PROVIDERS: ATTENDING PHYSICIAN Internal Medicine; FAMILY PHYSICIAN Family Medicine
DX: R18.8 Other ascites (principal)
CPT/HCPCS: 49083; 89051

== ENCOUNTER → 2023-06-10 07:49 | Outpatient (REF) | payer OTHER, SELFPAY ==
[2023-06-10 08:36] VITALS: BP 123/87; BP_SYST 92
[2023-06-10 09:59] VITALS: BP 117/74
[2023-06-10 10:49] LABS: Body Fluid Mononuclear 90.9 %; Body Fluid Polymorphonuclear 9.1 %; Body Fluid WBC 99 /CUMM
[2023-06-10 10:51] LABS: Body Fluid Second Tech HB
== END ==
LOC: RADI 07:49
PROVIDERS: ATTENDING PHYSICIAN Internal Medicine; FAMILY PHYSICIAN Nurse Practitioner
DX: R18.8 Other ascites (principal)
CPT/HCPCS: 49083; 89051; P9047

== ENCOUNTER → 2023-06-17 07:40 | Outpatient (REF) | payer OTHER, SELFPAY ==
[2023-06-17 07:53] VITALS: BP 116/81; BP_SYST 85
[2023-06-17 08:56] VITALS: BP 105/69
[2023-06-17 09:54] LABS: Body Fluid Mononuclear 88.3 %; Body Fluid Polymorphonuclear 11.7 %; Body Fluid WBC 145 /CUMM
[2023-06-17 10:02] LABS: Body Fluid Second Tech AMA
== END ==
LOC: RADI 07:40
PROVIDERS: ATTENDING PHYSICIAN Internal Medicine
DX: R18.8 Other ascites (principal)
CPT/HCPCS: 49083; 89051

== ENCOUNTER 2023-06-17 09:22 | Outpatient (RCR) | payer OTHER, SELFPAY ==
[2023-05-27 09:30] VITALS: BP 129/66
[2023-05-27 09:48] VITALS: BP 129/66
[2023-05-27] MEDS: FLEXBUMIN 100 IV ×2 (09:48→11:58)
[2023-05-27] MEDS: FLEXBUMIN 50 IV (11:18)
[2023-05-27 11:19] VITALS: BP 115/56
[2023-05-27 11:59] VITALS: BP 112/54
[2023-05-27 13:34] VITALS: BP 113/60
[2023-06-10 10:40] VITALS: BP 119/70
[2023-06-10] MEDS: FLEXBUMIN 100 IV ×2 (10:40→12:35)
[2023-06-10 12:36] VITALS: BP 109/66
[2023-06-10] MEDS: FLEXBUMIN 50 IV (13:56)
[2023-06-10 13:57] VITALS: BP 99/63
[2023-06-10 14:40] VITALS: BP 105/59
[2023-06-17 10:00] VITALS: BP 103/58
[2023-06-17] MEDS: FLEXBUMIN 50 IV (10:02)
[2023-06-17 10:04] VITALS: BP 103/58
[2023-06-17] MEDS: FLEXBUMIN 100 IV ×2 (10:48→12:12)
[2023-06-17 10:49] VITALS: BP 115/63
[2023-06-17 12:13] VITALS: BP 108/62
[2023-06-17 13:45] VITALS: BP 105/58
== END 2023-06-18 23:59 | disposition home or self-care (01) ==
LOC: OID 09:22
PROVIDERS: ATTENDING PHYSICIAN Internal Medicine; FAMILY PHYSICIAN Nurse Practitioner
DX: K70.31 Alcoholic cirrhosis of liver with ascites (principal)
CPT/HCPCS: 96365; 96366; P9047

== ENCOUNTER → 2023-06-25 07:34 | Outpatient (REF) | payer OTHER, SELFPAY ==
[2023-06-25 07:57] VITALS: BP 121/74; BP_SYST 71
[2023-06-25 09:28] LABS: Body Fluid Mononuclear 84.9 %; Body Fluid Polymorphonuclear 15.1 %; Body Fluid WBC 285 /CUMM
[2023-06-25 09:30] LABS: Body Fluid Second Tech CF
== END ==
LOC: RADI 07:34
PROVIDERS: ATTENDING PHYSICIAN Internal Medicine
DX: R18.8 Other ascites (principal)
CPT/HCPCS: 49083; 89051

== ENCOUNTER → 2023-07-01 08:06 | Outpatient (REF) | payer OTHER, SELFPAY ==
[2023-07-01 08:14] VITALS: BP 116/71; BP_SYST 83
[2023-07-01 08:59] VITALS: BP 112/66
[2023-07-01 10:03] LABS: Body Fluid Mononuclear 90 %; Body Fluid Polymorphonuclear 10 %; Body Fluid WBC 389 /CUMM
[2023-07-01 10:05] LABS: Body Fluid Second Tech ASW
== END ==
LOC: RADI 08:06
PROVIDERS: ATTENDING PHYSICIAN Internal Medicine
DX: R18.8 Other ascites (principal)
CPT/HCPCS: 49083; 89051

== ENCOUNTER → 2023-07-12 08:05 | Outpatient (REF) | payer OTHER, SELFPAY ==
[2023-07-12 08:15] VITALS: BP 105/74; BP_SYST 79
[2023-07-12 10:47] LABS: Body Fluid Mononuclear 85.1 %; Body Fluid Polymorphonuclear 14.9 %; Body Fluid WBC 497 /CUMM
[2023-07-12 10:49] LABS: Body Fluid Second Tech EF
== END ==
LOC: RADI 08:05
PROVIDERS: ATTENDING PHYSICIAN Internal Medicine; FAMILY PHYSICIAN Nurse Practitioner
DX: K70.31 Alcoholic cirrhosis of liver with ascites (principal)
CPT/HCPCS: 49083; 87015; 87070; 87205; 89051

== ENCOUNTER → 2023-07-26 08:25 | Outpatient (REF) | payer OTHER, SELFPAY ==
[2023-07-26 09:14] VITALS: BP 111/85; BP_SYST 70
[2023-07-26 10:38] LABS: Body Fluid Mononuclear 89.3 %; Body Fluid Polymorphonuclear 10.7 %; Body Fluid WBC 517 /CUMM
[2023-07-26 10:44] LABS: Body Fluid Second Tech AMA
== END ==
LOC: RADI 08:25
PROVIDERS: ATTENDING PHYSICIAN Internal Medicine
DX: K70.31 Alcoholic cirrhosis of liver with ascites (principal)
CPT/HCPCS: 49083; 89051

== ENCOUNTER → 2023-07-29 06:38 | Day surgery (SDC) | payer OTHER, SELFPAY | LOC: GI 06:38 | PROVIDERS: ATTENDING PHYSICIAN Internal Medicine | DX: I85.00 Esophageal varices without bleeding (principal); K29.20 Alcoholic gastritis without bleeding | CPT/HCPCS: 43239; 88305; 88342 ==

== ENCOUNTER → 2023-08-12 08:14 | Outpatient (REF) | payer OTHER, SELFPAY ==
[2023-08-12 08:25] VITALS: BP 124/81; BP_SYST 95
== END ==
LOC: RADI 08:14
PROVIDERS: ATTENDING PHYSICIAN Internal Medicine
DX: R18.8 Other ascites (principal); Z53.8 Procedure and treatment not carried out for other reasons
CPT/HCPCS: 76705

== ENCOUNTER 2024-03-21 04:15 | Inpatient (IN) | payer OTHER, SELFPAY ==
[2024-03-20 22:16] VITALS: BP 122/74
[2024-03-20 23:00] LABS: Hematocrit 35.5 % (39.0-52.0); Hemoglobin 11.7 g/dL (13.0-18.0); Mean Corpuscular Hgb 31.2 pg (27.0-31.0); Mean Corpuscular Volume 94.7 fL (80.0-94.0); Mean Platelet Volume 8.7 fL (7.4-10.4); Platelet Count 123 10^3/uL (130-400); Red Blood Cell Count 3.75 10^6/uL (4.70-6.10); Red Cell Dist. Width 25.1 % (11.5-14.5); White Blood Cell Count 8.8 10^3/uL (4.8-10.8)
[2024-03-20 23:05] LABS: ALT (SGPT) 55 U/L (0-50); AST (SGOT) 217 U/L (17-59); Albumin 2.8 g/dl (3.5-5.0); Alcohol 34 mg/dl; Alkaline Phosphatase 123 U/L (38-126); Blood Urea Nitrogen 6 mg/dl (9-20); Calcium 8.1 mg/dl (8.4-10.2); Carbon Dioxide 20 mmol/L (22-30); Chloride 96 mmol/L (98-107); Creatine Phosphokinase 682 U/L (55-170); Glucose 62 mg/dl (70-99); Potassium 4.5 mmol/L (3.5-5.1); Sodium 131 mmol/L (135-145); Total Bilirubin 10.3 mg/dl (0.2-1.3); Total Protein 8.7 g/dl (6.3-8.2); eGFR > 60.00
[2024-03-20 23:13] LABS: % Basophils 0.3 % (0-2); % Eosinophils 0.2 % (0-6); % Immature Granulocytes 0.5 % (0-0.5); % Lymphocytes 10.8 % (20.5-51.1); % Monocytes 9.4 % (1.7-9.3); % Neutrophils 78.8 % (42.2-75.2); Absolute Monocytes 0.8 10^3/uL (0.1-0.6); Absolute Neutrophils 6.9 10^3/uL (1.4-6.5); Nucleated Red Blood Cells % 0 % (-)
[2024-03-20 23:14] LABS: Normal RBC Morphology No
[2024-03-20 23:15] LABS: Anisocytosis 2+; Macrocytosis 3+; Polychromasia 1+; Target Cells 2+; Tear Drop Red Blood Cells 2+
[2024-03-20 23:49] VITALS: BP 104/62
[2024-03-21] VITALS (17 sets, daily range): BP systolic 95–134; BP diastolic 53–88; PULSE 105; O2SAT 98; BMI 39.5; BMI 35.3
--- NOTE | 2024-03-21 02:32 | ED.GENMED ---
History of Present Illness
General
Chief Complaint: Fall
Source: patient
Exam Limitations: none
Time Seen by Provider: 03/21/24 02:25
History of Present Illness
History of Present Illness:
See MDM
Past History
Past History
ED Past Medical History: Other (Alcohol cirrhosis )
ED Past Surgical History: Other (Hernia repair)
Social History
Tobacco: Smoker
Alcohol: Daily (Until a month ago)
Phy Exam
Physical Exam
Physical Exam:
See MDM
Course
Orders/Labs/Results
Orders:
Orders
03/20/24 22:36
Alcohol Urgent
Complete Blood Count/With Diff Urgent
Comprehensive Metabolic Panel Urgent
Creatine Phosphokinase Urgent
03/21/24 02:31
Morphine Sulfate 4 mg IV NOW STA
03/21/24 02:32
PTT Urgent
Prothrombin Time Urgent
Abnormal Lab Results
03/20/24
22:36
RBC 3.75 L 10^6/uL
(4.70-6.10)
Hgb 11.7 L g/dL
(13.0-18.0)
Hct 35.5 L %
(39.0-52.0)
MCV 94.7 H fL
(80.0-94.0)
MCH 31.2 H pg
(27.0-31.0)
RDW 25.1 H %
(11.5-14.5)
Plt Count 123 L 10^3/uL
(130-400)
Absolute Neuts (auto) 6.9 H 10^3/uL
(1.4-6.5)
Absolute Lymphs (auto) 1.0 L 10^3/uL
(1.2-3.4)
Absolute Monos (auto) 0.8 H 10^3/uL
(0.1-0.6)
Neutrophils % 78.8 H %
(42.2-75.2)
Lymphocytes % 10.8 L %
(20.5-51.1)
Monocytes % 9.4 H %
(1.7-9.3)
Sodium 131 L mmol/L
(135-145)
Chloride 96 L mmol/L
(98-107)
Carbon Dioxide 20 L mmol/L
(22-30)
BUN 6 L mg/dl
(9-20)
Glucose 62 L mg/dl
(70-99)
Calcium 8.1 L mg/dl
(8.4-10.2)
Total Bilirubin 10.3 H mg/dl
(0.2-1.3)
AST 217 H U/L
(17-59)
ALT 55 H U/L
(0-50)
Creatine Kinase 682 H U/L
(55-170)
Total Protein 8.7 H g/dl
(6.3-8.2)
Albumin 2.8 L g/dl
(3.5-5.0)
03/20/24 22:36
03/20/24 22:36
Vital Signs
Initial and Last Documented VS:
Initial Vital Signs
Temp Pulse Resp BP Pulse Ox
97.5 F 102 26 122/74 99
03/20/24 22:16 03/20/24 22:16 03/20/24 22:16 03/20/24 22:16 03/20/24 22:16
Last Documented Vital Signs
Temp Pulse Resp BP Pulse Ox
97.5 F 133 37 131/78 100
03/20/24 22:16 03/21/24 02:15 03/21/24 02:15 03/21/24 02:00 03/21/24 02:15
MDM/Problems Addressed
Differential Diagnosis Includes:
HPI and MDM Narrative:
58-year-old male presenting for generalized weakness. Patient was slipping off the couch and he slid himself down. He did not fall. Patient was having trouble getting himself up. He was apparently on the floor for 10 hours. EMS helped him up
but his daughter apparently forced him to the emergency department. On evaluation, patient has an extremely large ascites filled abdomen. It is nontender. Patient states he has not had a paracentesis in multiple months but states he started
drinking alcohol again. Patient has +4 pitting edema in his legs. Patient admits to noncompliance to Lasix.
Given the amount of ascites, will admit for IR to evaluate for paracentesis. Patient will need physical therapy and further evaluation
Physical exam
General: Mildly jaundiced, disheveled
HEENT: protecting airway
Neck: appears supple
CV: No evidence of cyanosis
Resp: No accessory muscle use
Abd: Very large distended abdomen. Nontender
Extremities: +4 pitting edema to both legs
Neuro: alert
Psych: Normal affect
Skin: Multiple areas of striae
Problems Addressed including Acute and Chronic Conditions affecting care:
1. Ascites
Acuity: acute
Prognosis: unstable
Details: Will admit for IR evaluation for paracentesis
Updates
Differential Diagnosis (but not limited to): Ascites, congestive heart failure
Testing considered: CT abdomen/pelvis but it is nontender
Drug therapy (if applicable): OTC meds, please see d/c instruction regarding Rx drugs
Amount and/or Complexity of Data Reviewed
Clinical info obtained from: Patient
External data reviewed: N/A
Labs I independently reviewed (but not limited to): Elevated CPK
Radiology: N/A
Pulse Ox: not hypoxic
EKG independently reviewed: N/A
Machine Preservative Filler: N/A
Critical Care: N/A
Risk of Complication:
Social Determinants of health: Good social support
Discussed with other providers: Hospitalist
Escalation of Care includes Admit/Obs: Given the significant ascites, will admit
Occasional wrong word or 'sound a like' substitutions may have occurred due to the inherent limitations of voice recognition software. Read the chart carefully and recognize, using context, where substitutions have occurred.
*Critical Care Note
Total Time (30-74mins, 75-104mins- exclusive of procedures): Not Applicable
ED Attending Note
-
Portions of this chart may have been created with voice recognition software.� Occasional wrong word or��sound alike� substitutions may have occurred due to the inherent limitations of voice recognition software.
Discharge Plan
Departure
Patient Disposition: Admit
Date of Disposition: 03/21/24
Time of Disposition: 02:35
Presentation/result/management discussed w/ accepting MD/DO: Hospitalist
Discharge Problem:
Ascites, Anasarca, Rhabdomyolysis
Prescriptions:
No Action
spironolactone 50 mg Tablet
50 mg PO BID Qty: 60 0RF
cholecalciferol (vitamin D3) 50 mcg (2,000 unit) Tablet
50 mcg PO DAILY
folic acid 1 mg Tablet
1 mg PO DAILY Qty: 30 0RF
pantoprazole 40 mg Tablet,Delayed Release (Dr/Ec)
40 mg PO BID Qty: 60 0RF
furosemide 40 mg tablet
80 mg PO BID
lactulose 10 gram/15 mL (15 mL) solution
20 g PO .Q4H
triamcinolone acetonide 0.1 % Ointment
1 applic TOPICAL TID
Referrals:
NONE,* [Family Provider] -
Interventions
Interventions:
*Risk Screen - Suicide Last Done: 03/20/24 22:16
*General Assessment Last Done: 03/20/24 22:16
*Neglect/Abuse Screening Last Done: 03/20/24 22:16
Discharge Date and Time
Print Language: LATVIAN
[2024-03-21] MEDS: MORPHINE SULFATE 4 MG IV (03:09)
--- NOTE | 2024-03-21 03:33 | HPS.HSE ---
Family Physician
-
Family Physician: * NONE
Chief Complaint
-
Fall
History of Present Illness
This is a 58-year-old male with past medical history of alcoholic cirrhosis of complicated by varices status post banding without any history of bleeding presents to the emergency department following a fall at home.
Patient describes actually sliding from his chair to the floor without falling. He states that he has been having weakness and swelling in his legs bilaterally. Due to these weakness and swelling is unable to easily get up and transfer from chair.
Reports that he has had approximately 3 episodes of these events in the last 1 week.
Patient reported that he started alcohol intake again recently. He has been drinking for several weeks now and he drinks about one half of a bottle of vodka every day. He stated that he stopped drinking 5 days ago due to increasing abdominal
swelling and lower extremity swelling. He reported that he was told that he had changes in the color of his eyes today.
Patient denied dark stools. He denied any hematochezia. Since stopping alcohol 5 days ago he denied any nausea or vomiting. He denied tremors. He denied any hallucinations. Patient denies any prior history of withdrawal.
He reports soft daily stools without diarrhea or constipation. He denies any fevers or chills. He reports abdominal pressure but no sharp pain.
In the emergency department he was afebrile, blood pressure was 131/70 with a pulse of 120. He was satting 100% on room air. CBC was stable. His electrolytes BUN/creatinine were also stable. Glucose was slightly low at 62. The bilirubin was
elevated to 10.3 with ALT of 55 and AST of slightly greater than 200.
Medical History
Past Medical History
Past Medical History: Reports Other (Alcoholic cirrhosis, secondary esophageal varices)
Past Surgical History: Reports Other
Social History
Tobacco: Smoker
Alcohol: Daily
Drug: None
Personal: Single
Living: Alone
Employment: Not Employed
Family History
Family History: Not pertinent
Allergies / Home Medications
Allergies reflects when Allergies were last updated in [employer].
Home Medications with original date entered in [employer]
Allergy/Medication List:
Allergies
Allergy/AdvReac Type Severity Reaction Status Date / Time
No Known Allergies Allergy Verified 08/12/23 08:25
Home Medications
spironolactone 50 mg tablet 50 mg PO BID #60 tabs 12/09/21
cholecalciferol (vitamin D3) 50 mcg (2,000 unit) tablet 50 mcg PO DAILY Supplement 04/29/23
folic acid 1 mg tablet 1 mg PO DAILY #30 tabs 05/08/23
pantoprazole 40 mg tablet,delayed release 40 mg PO BID #60 tabs 05/08/23
furosemide 40 mg tablet 80 mg PO BID 05/27/23
lactulose 10 gram/15 mL (15 mL) oral solution 20 g PO .Q4H 06/10/23
triamcinolone acetonide 0.1 % topical ointment 1 applic topical TID 06/17/23
Review of Systems
-
History Source: Patient
Constitutional: Reports Fatigue
EENT: Reports No Symptoms
Respiratory: Reports No Symptoms
Cardiac: Reports Other (dyspnea on exertion)
Abdomen/GI: Reports Other (abdominal distension)
: Reports No Symptoms
Musculoskeletal: Reports Edema
Skin: Reports Rash
Neurological: Reports No Symptoms
Endocrine: Reports No Symptoms
Hematologic/Lymphatic: Reports No Symptoms
Psych: Reports No Symptoms
Physical Exam
Vital Signs
Vital Signs
Temp Pulse Resp BP Pulse Ox
97.5 F 130 21 108/71 97
03/20/24 22:16 03/21/24 03:15 03/21/24 03:15 03/21/24 03:00 03/21/24 03:15
Physical Exam
General: Appears Chronically Ill
HEENT: NormoCephalic, Moist mucous membranes, Atraumatic and PERRLA
Respiratory: Clear
Cardiac: S1/S2 and Tachycardia
Breast: Deferred by me
GI: Soft and Distended
Rectal: Deferred by Provider
Genito-urinary: Deferred by me
Musculoskeletal: No Clubbing, No Cyanosis, Edema, Left Lower Extremity and Edema, Right Lower Extremity
Skin: Warm and Rash (psoriatric plaques throughout)
Neuro: AO x 3 and Nonfocal/grossly intact; No Tremors
Hematologic/Lymphatic: No Lymphadenopathy
Psych: Calm
Laboratory Results
-
03/20/24 22:36
03/20/24 22:36
Laboratory Results
Total Bilirubin 10.3 mg/dl (0.2-1.3) H 03/20/24 22:36
AST 217 U/L (17-59) H 03/20/24 22:36
ALT 55 U/L (0-50) H 03/20/24 22:36
Alkaline Phosphatase 123 U/L (38-126) 03/20/24 22:36
Data Reviewed
-
Lab Data: Labs Reviewed by me
Old Records: Reviewed
Impression/Plan
-
IMPRESSION:
Acute on chronic liver injury in setting of etoh use. Here with tense ascites. No signs of acute infection. Bilirubin elevated to 10. Na 131. Meld 3.0 score > 19. Denies melena, hematochezia or constipation. No evidence of acute encephalopathy
or withdrawal.
PLAN:
1. Ascites with anasarca - Tense ascites with odalys le edema. Elevated neck veins with hepatojugular reflex
- admit to telemetry to eval for concomitant chf
- check bnp, echo
- restart oral lasix 80mg daily, spironolactone 50 bid
- i/o and daily weights
- diagnostic and therapeutic paracentesis
-albumin 2.8 and normal renal function, hold off IV albumin
2. ESLD
- on lactulose prn, continue for now
- secondary varices, no GI bleed. Hold off bb lockade for now, consider pending echo
3. ETOH dependence - Says last drink 5 days ago however ETOH today was 34 (should be undetectable) Tachycardic hear but no tremors. CIWA = 2. Moderate risk of withdrawal.
- moderate msas protocol
- iv thiamine
- continue folat
DVT PPX - heparin sq pending INR
Code status - Full Code
[2024-03-21 03:44] LABS: INR 2.53; PT 27.3 Sec (11.4-14.6)
[2024-03-21 03:45] LABS: APTT 50.4 Sec (23.4-35.0)
[2024-03-21 07:29] LABS: Hematocrit 34.3 % (39.0-52.0); Hemoglobin 11.6 g/dL (13.0-18.0); Mean Corp Hgb Conc. 33.8 g/dL (33.0-37.0); Mean Corpuscular Hgb 31.5 pg (27.0-31.0); Mean Corpuscular Volume 93.2 fL (80.0-94.0); Mean Platelet Volume 9.5 fL (7.4-10.4); Platelet Count 128 10^3/uL (130-400); Red Blood Cell Count 3.68 10^6/uL (4.70-6.10); White Blood Cell Count 7.6 10^3/uL (4.8-10.8)
[2024-03-21 07:29] LABS: Urine Albumin 2+ (Neg - Trace); Urine Bilirubin 3+ (Negative); Urine Character Clear (Clear); Urine Color Amber; Urine Glucose Negative (Negative); Urine Ketone 2+ (Negative); Urine Leukocyte 1+ (Negative); Urine Nitrite Negative (Negative); Urine Occult Blood 1+ (Negative); Urine Specific Gravity 1.025 (<1.030); Urine Urobilinogen 4+ (Neg - 1+)
[2024-03-21 07:44] LABS: HDL Cholesterol 11 mg/dl; LDL Cholesterol, Calculated 52 mg/dl; Total Cholesterol 79 mg/dl (50-199); Triglyceride 83 mg/dl (10-149); Very Low Density Lipoprotein 16 mg/dl (0-30)
[2024-03-21 07:50] LABS: NT-proBNP 399 pg/ml
[2024-03-21 08:03] LABS: Urine Hyaline Cast >15 /LPF (0-2); Urine Mucus Moderate; Urine Red Blood Cell 0-2 /HPF (0-2)
[2024-03-21 08:04] LABS: Urine Bacteria Moderate (Negative)
[2024-03-21 08:13] LABS: Amphetamines Negative (Negative); Barbiturates Negative (Negative); Benzodiazepines Negative (Negative); Buprenorphine Negative (Negative); Cocaine Negative (Negative)
[2024-03-21 08:14] LABS: Marijuana Negative (Negative); Methadone Negative (Negative); Methamphetamines Negative (Negative); Opiates Negative (Negative); Phencyclidine Negative (Negative); Tricyclic Antidepressants Negative (Negative)
[2024-03-21] MEDS: THIAMINE INJECTION 200 MG IV ×2 (08:23→20:07)
[2024-03-21] MEDS: HEPARIN 5000 UNITS SC (08:23)
[2024-03-21] MEDS: ALDACTONE 50 MG PO ×2 (08:24→20:07)
[2024-03-21] MEDS: TRIAMCINOLONE ACETONIDE 0.1% OINTMENT 1 APPLIC TOPICAL ×3 (08:24→20:08)
[2024-03-21] MEDS: FOLVITE 1 MG PO (08:24)
[2024-03-21] MEDS: LASIX 80 MG PO (08:24)
--- NOTE | 2024-03-21 08:34 | W.PN.HOSP.TC ---
Today's Communication/Plan
-
See bold
Assessment / Plan
Assessment / Plan
HPI: 58-year-old male with decompensated liver cirrhosis with recurrent ascites, prior esophageal varices with no prior bleeding, active alcohol abuse who is interested in alcohol cessation, active tobacco use who called the ambulance after he was
unable to get up from the floor. He lives alone, drives to get his vodka but for the past week he is pretty much been on the couch. Has not been eating much due to the inability to get around. He lives in a split-level. The last time he had any
vodka was about 10 days ago. Denies going into withdrawal. He has been in a 30-day rehab and is interested in stopping alcohol and smoking.
#Decompensated alcoholic cirrhosis
#Alcoholic hepatitis
Appreciate GI input
Current DF 76; MELD 3.0 28 -driven by his INR and total bilirubin
#Severe ascites
IR has been consulted for paracentesis
Continue Lasix and Aldactone
#Alcohol dependency
Last drink was 10 days prior to admission
Patient is interested in alcohol cessation
Continue MSAS withdrawal protocol
#Coagulopathy
GI ordering vitamin K
#Severe Psoriasis
�- Marked skin changes c/w advanced psoriasis over multiple surfaces - most severe on RLE, lower abdomen and perineum.
�- Continue triamcinolone ointment, wound care, recommend outpatient Derm evaluation.
�- Suspect that cirrhosis will limit his systemic therapeutic options.
Physical Exam
General: Appears chronically ill, no acute distress
HEENT: Normocephalic, Atraumatic, EOMI, MMM
Respiratory: Tachypnea, mild respiratory distress, bibasilar crackles
Cardiac: Normal S1/S2, tachycardic rate, regular rhythm
GI: Tense abdomen
Extremities: No Clubbing, Cyanosis
Bilateral lower extremity edema noted
Neuro: Awake/alert
Bilateral hand tremors noted
Psych: Appears anxious
Derm: Severe psoriatic plaque on bilateral lower extremities, right greater than left
Anticipated Discharge: > 48 hours
Subjective/Interval History
-
Date of Service: March 21, 2024
Patient reports diffuse weakness and abdominal distention with abdominal pressure. No chest pain, no shortness of breath. No fever.
Objective Data
-
Labs:
Laboratory Results
03/20/24 03/21/24 03/21/24
22:36 03:09 06:47
WBC 8.8 7.6
Hgb 11.7 L 11.6 L
Hct 35.5 L 34.3 L
Plt Count 123 L 128 L
PT 27.3 H
INR 2.53
APTT 50.4 H
Sodium 131 L
Potassium 4.5
Chloride 96 L
Carbon Dioxide 20 L
BUN 6 L
Creatinine 0.8
Glucose 62 L
Calcium 8.1 L
Total Bilirubin 10.3 H
AST 217 H
ALT 55 H
Alkaline Phosphatase 123
Vital Signs:
Vital Signs
Temp Pulse Resp BP Pulse Ox
97.5 F 107 20 108/71 97
03/21/24 02:27 03/21/24 08:00 03/21/24 08:00 03/21/24 08:00 03/21/24 08:00
--- NOTE | 2024-03-21 09:45 | CON.GI ---
Addendum entered and electronically signed by Viviane Serrato DO 03/21/24 11:27:
Patient seen and examined independently of ADILSON. I agree with her note with my additions below
Shayne is a 58-year-old male with decompensated liver cirrhosis with recurrent ascites, prior esophageal varices with no prior bleeding, active alcohol abuse who is interested in alcohol cessation, active tobacco use who called the ambulance after he
was unable to get up from the floor. He lives alone, drives to get his vodka but for the past week he is pretty much been on the couch. Has not been eating much due to the inability to get around. He lives in a split-level. The last time he had
any vodka was about 10 days ago. Denies going into withdrawal. He has been in a 30-day rehab and is interested in stopping alcohol and smoking.
Says he did not hurt himself he just slid to the ground and could not get up.
Last paracentesis he states was about 6 months ago. He has been off his diuretics for a few weeks. He denies any confusion. Denies any bleeding. He has seen Dr. Moreno in the past but has not followed up in quite some time.
# Decompensated alcoholic cirrhosis - current DF 76; MELD 3.0 28 -driven by his INR and total bilirubin. His creatinine function is actually normal at 0.8
-- Patient is interested in alcohol cessation and tobacco cessation
# Ascites -tense ascites on exam with lower extremity edema
-- Diagnostic and therapeutic paracentesis today followed by albumin based on the amount removed. Probably has 8 L
-- As long as renal function is okay for tomorrow will start diuretics
-- Check ascitic fluid for infection
# Alcoholic hepatitis -DF 76;
-- Good nutrition is very important and needs to start a low-sodium diet
-- Rule out infection, patient is coughing seems productive. Check chest x-ray, send UA, check ascitic fluid for infection
-- Pending results may need steroids
# Elevated INR -likely multifactorial including malnutrition. Will give vitamin K oral for 2 to 3 days
# Significant psoriasis -likely why some of his autoimmune markers are elevated
# Disposition -unclear if he is safe for living alone
Original Note:
Consultation
-
Date/Time Consultation Requested: 03/21/24829
Date/Time Consultation Performed: 03/21/24939
Requesting Provider: Caridad Byrd MD
Performing Provider: ADILSON Montano, Viviane Serrato DO
Reason for Consultation: anasarca
Medical History
Chief Complaint / HPI
Chief Complaint: weakness
History of Present Illness:
Pt is a 58 yo male with a PMH significant for decompensated liver cirrhosis with recurrent ascites, esophageal varices, portal HTN, ETOH abuse, extensive psoriasis, depression, current cigarette smoker, with admission s/p fall and unable to get
up for 10 hours. On admission pt admits to recurrent ETOH use with LE swelling and non compliance with medications. He follow with Dr. Camarena in office but was as now show on follow up in January. He admits to period of sobriety from May til
about 2 months ago and now consume about 1 bottle vodka every other day til 1 week ago when he was unable to walk with increasing abdominal swelling. Weight has been up and down but in 04/2023 105kg and now 125 kg on admission. He admits to
abdominal pressure and swelling but denies dysphagia, GERD, nausea, vomiting, diarrhea, constipation, or rectal bleeding. On admission noted with WBC 7.6, hbg 11.6, platelets 128, na 131, K 4,5, creat 0.8, glucose 62, odalys 10, AST 217, ALT 55, alk
phos 123, INR 2.53, CK 682, albumin 2.8. Pt has followed with Dr. Moreno in past but has not seen in a while.
prior liver serology 2021 with + SMA, SLA and AMA. Neg hepatitis panel without immunity, A1At, Ceruloplasmin and stable iron studies with ferritin in 100 range
last scopes:
EGD 07/29/23- [facility] - Grade I esophageal varices. portal HTN gastropathy, normal duodenum
Colonoscopy: 04/[address] Camarena: Benign hyperplastic polyps, sigmoid diverticulosis.
Past Medical History
Past Medical History: Psychiatric (Depression) and Other (Psoriasis, decompensated alcoholic liver cirrhosis, history of grade 1 esophageal varices, portal hypertension)
Past Surgical History: Other (Hernia repair as a child)
Social History
Tobacco: Smoker
Alcohol: Chronic Alcoholic
Drug: None
Living: Alone
Employment: Not Employed
Family History
Family History: Other (father with prostate CA, denies family hx colon CA, polyps, or liver disease )
Allergies / Home Medications
Allergy/AdvReac Type Severity Reaction Status Date / Time
No Known Allergies Allergy Verified 08/12/23 08:25
�Medication �Instructions �Recorded
spironolactone 50 mg tablet 50 mg PO BID #60 tabs 12/09/21
cholecalciferol (vitamin D3) 50 50 mcg PO DAILY Supplement 04/29/23
mcg (2,000 unit) tablet
furosemide 40 mg tablet 80 mg PO BID 05/27/23
lactulose 10 gram/15 mL (15 mL) 20 g PO .Q4H PRN Reduction Of 06/10/23
oral solution Transepidermal Water Loss
triamcinolone acetonide 0.1 % 1 applic topical TID 06/17/23
topical ointment
Review of Systems
-
History Source: Patient
Constitutional: Reports Weight Gain
EENT: Reports No Symptoms
Respiratory: Reports No Symptoms
Cardiac: Reports No Symptoms
Abdomen/GI: Reports Abdominal Pain
: Reports No Symptoms
Musculoskeletal: Reports No Symptoms
Skin: Reports Other (extensive psoriasis )
Neurological: Reports No Symptoms
Endocrine: Reports No Symptoms
Hematologic/Lymphatic: Reports No Symptoms
Vital Signs
Temp Pulse Resp BP Pulse Ox
97.5 F 124 18 108/74 98
03/21/24 02:27 03/21/24 09:30 03/21/24 09:30 03/21/24 09:00 03/21/24 09:30
Physical Exam
Exam
General: Other (chronic ill appearing with diffuse anasarca, abdominal distention, jaundice but remains awake and conversant )
HEENT: Normocephalic
Respiratory: Clear and Other (decreaased bases )
Cardiac: Other (tachicardia )
GI: Tender and Distended (with firmness with extensive ascites )
Musculoskeletal: No Clubbing and No Cyanosis
Skin: Other (extensive )
Neuro: AO x 3
Psych: Calm
Results
WBC 7.6 10^3/uL (4.8-10.8) 03/21/24 06:47
Hgb 11.6 g/dL (13.0-18.0) L 03/21/24 06:47
Hct 34.3 % (39.0-52.0) L 03/21/24 06:47
MCV 93.2 fL (80.0-94.0) 03/21/24 06:47
Plt Count 128 10^3/uL (130-400) L 03/21/24 06:47
Absolute Neuts (auto) 6.9 10^3/uL (1.4-6.5) H 03/20/24 22:36
PT 27.3 Sec (11.4-14.6) H 03/21/24 03:09
INR 2.53 03/21/24 03:09
APTT 50.4 Sec (23.4-35.0) H 03/21/24 03:09
Sodium 131 mmol/L (135-145) L 03/20/24 22:36
Potassium 4.5 mmol/L (3.5-5.1) 03/20/24 22:36
Chloride 96 mmol/L (98-107) L 03/20/24 22:36
Carbon Dioxide 20 mmol/L (22-30) L 03/20/24 22:36
BUN 6 mg/dl (9-20) L 03/20/24 22:36
Creatinine 0.8 mg/dL (0.7-1.3) 03/20/24 22:36
Calcium 8.1 mg/dl (8.4-10.2) L 03/20/24 22:36
Total Bilirubin 10.3 mg/dl (0.2-1.3) H 03/20/24 22:36
AST 217 U/L (17-59) H 03/20/24 22:36
ALT 55 U/L (0-50) H 03/20/24 22:36
Alkaline Phosphatase 123 U/L (38-126) 03/20/24 22:36
Diagnostic Image Results:
11/11/2022 CT of the chest, abdomen, pelvis w/IV contrast: IMPRESSION: 'Fractures of at least the right fourth through ninth ribs with adjacent likely posttraumatic small pleural effusion and some accompanying adjacent subsegmental atelectasis. No
pneumothorax. MASSIVE ASCITES. Markedly limited evaluation of diffusely heterogeneous liver with lobulated borders suggesting marked hepatic cirrhotic morphology. Unfortunately, a small hepatic space-occupying lesion cannot be excluded. Grossly
intact solid organs of the abdomen. Mild nonspecific retroperitoneal, mediastinal, bilateral axillary and bilateral inguinal lymph node/lymphadenopathy. Additional findings: Moderate bilateral gynecomastia and� small nonobstructing right renal
calculus.'
Prior GI Procedures:
EGD 07/29/23- [facility] - Grade I esophageal varices. portal HTN gastropathy, normal duodenum
EGD: 02/21/2022 EGD, Dr. Camarena: Grade 1 esophageal varices. Portal hypertensive gastropathy. Gastritis. Normal examined duodenum. Biopsies negative for H. pylori
Colonoscopy: 04/[address] Camarena: Benign hyperplastic polyps, sigmoid diverticulosis.
Assessment / Plan
-
Pt is a 58 yo male with a PMH significant for decompensated liver cirrhosis with recurrent ascites, esophageal varices, portal HTN, ETOH abuse, extensive psoriasis, depression, current cigarette smoker, with admission s/p fall and unable to get
up for 10 hours. On admission pt admits to recurrent ETOH use with LE swelling and non compliance with medications. He follow with Dr. Camarena in office but was as now show on follow up in January. He admits to period of sobriety from May til
about 2 months ago and now consume about 1 bottle vodka every other day til 1 week ago when he was unable to walk with increasing abdominal swelling. Weight has been up and down but in 04/2023 105kg and now 125 kg on admission. He admits to
abdominal pressure and swelling but denies dysphagia, GERD, nausea, vomiting, diarrhea, constipation, or rectal bleeding. On admission noted with WBC 7.6, hbg 11.6, platelets 128, na 131, K 4,5, creat 0.8, glucose 62, odalys 10, AST 217, ALT 55, alk
phos 123, INR 2.53, CK 682, albumin 2.8.
prior liver serology 2021 with + SMA, SLA and AMA. Neg hepatitis panel without immunity, A1At, Ceruloplasmin and stable iron studies with ferritin in 100 range
last scopes:
EGD 07/29/23- [facility] - Grade I esophageal varices. portal HTN gastropathy, normal duodenum
Colonoscopy: 04/[address] Camarena: Benign hyperplastic polyps, sigmoid diverticulosis.
-cirrhosis with decompensation
-ETOH hepatitis
-marked ascites/anasarca
-tachycardia
-prior elevated SMA, SLA, AMA
-s/p fall with concern for Rhabdo
-coagulopathy
-hyponatremia
-hypoalbuminemia
-thrombocytopenia
-hx Grade I EV/portal HTN
-active ETOH and tobacco use
other med problems:
-extensive psoriasis
-depression
-medical non compliance
PLAN:
Etiology of symptoms with concern for liver decompensation-- cirrhosis but with recent heavy ETOH use component of ETOH hepatitis pt also with elevated SMA, SLA and AMA in past
agree with large volume paracentesis diagnostic and therapeutic as tolerated
check fluid for cell count, cx etc -- call for further albumin post -tap, pt was given some albumin in ER
current DF 76.1 with control of 13, MELD 3.0 28
cont to trend labs
check US with Doppler after para completed
check urine cx, blood cx, CXR to ensure no infection as may need steroids with component of ETOH hepatitis and high DF
2 gram Na diet
daily weights up 25 kg since last weight in April 2023
per medical team started on Aldactone 50mg BID and Lasix 80mg in ER
will check AFP and repeat AMA, SMA, and SLA with prior elevation
add dose vitamin K with marked elevated INR
monitor for ETOH withdrawal
cont thiamine and folate
counseled in quitting ETOH
wound care consult with extensive anasarca and psoriasis
OP follow up with Dr. Moreno - tertiary eval if not improving no records in [facility] for prior Dr. Tiffanie prasad
-
-
Thank you for consultation and allowing me to participate in the patient's care. Please call the compensation analyst GI physician during the after hours with any questions or concerns.
[2024-03-21] MEDS: MEPHYTON 10 MG PO (11:21)
[2024-03-21 14:11] LABS: ALT (SGPT) 52 U/L (0-50); AST (SGOT) 188 U/L (17-59); Albumin 2.1 g/dl (3.5-5.0); Alkaline Phosphatase 103 U/L (38-126); Blood Urea Nitrogen 8 mg/dl (9-20); Calcium 7.9 mg/dl (8.4-10.2); Carbon Dioxide 24 mmol/L (22-30); Chloride 96 mmol/L (98-107); Estimated Creatinine Clearance 109 ml/min; Glucose 99 mg/dl (70-99); Potassium 4.2 mmol/L (3.5-5.1); Sodium 131 mmol/L (135-145); Total Bilirubin 9.8 mg/dl (0.2-1.3); Total Protein 7.1 g/dl (6.3-8.2); eGFR > 60.00
[2024-03-21] MEDS: LOVENOX SC (19:44)
[2024-03-21] MEDS: ATIVAN 1 MG PO (20:07)
[2024-03-21] MEDS: DILAUDID 0.25 MG IV (21:22)
[2024-03-22] VITALS (8 sets, daily range): BP systolic 95–118; BP diastolic 49–85; BMI 35.7
[2024-03-22] MEDS: ATIVAN 1 MG PO (05:53)
[2024-03-22 07:27] LABS: Hematocrit 29.9 % (39.0-52.0); Hemoglobin 9.9 g/dL (13.0-18.0); INR 2.45; Mean Corp Hgb Conc. 33.1 g/dL (33.0-37.0); Mean Corpuscular Hgb 31.5 pg (27.0-31.0); Mean Corpuscular Volume 95.2 fL (80.0-94.0); Mean Platelet Volume 8.9 fL (7.4-10.4); PT 26.6 Sec (11.4-14.6); Platelet Count 122 10^3/uL (130-400); Red Blood Cell Count 3.14 10^6/uL (4.70-6.10); Red Cell Dist. Width 25.2 % (11.5-14.5); White Blood Cell Count 5.9 10^3/uL (4.8-10.8)
--- NOTE | 2024-03-22 08:15 | W.PN.HOSP.TC ---
Today's Communication/Plan
-
see bold
Assessment / Plan
Assessment / Plan
HPI: 58-year-old male with decompensated liver cirrhosis with recurrent ascites, prior esophageal varices with no prior bleeding, active alcohol abuse who is interested in alcohol cessation, active tobacco use who called the ambulance after he was
unable to get up from the floor. He lives alone, drives to get his vodka but for the past week he is pretty much been on the couch. Has not been eating much due to the inability to get around. He lives in a split-level. The last time he had any
vodka was about 10 days ago. Denies going into withdrawal. He has been in a 30-day rehab and is interested in stopping alcohol and smoking.
#Decompensated alcoholic cirrhosis
#Alcoholic hepatitis
Appreciate GI input
Current DF 76; MELD 3.0 28 -driven by his INR and total bilirubin
Continue lactulose
#Severe ascites
Status post paracentesis 2/, draining 10 L
Getting IV albumin today as well
Continue Lasix and Aldactone
#Alcohol dependency
Last drink was 10 days prior to admission
Patient is interested in alcohol cessation
Continue MSAS withdrawal protocol
#Coagulopathy
Status post vitamin K
#Severe Psoriasis
�- Marked skin changes c/w advanced psoriasis over multiple surfaces - most severe on RLE, lower abdomen and perineum.
�- Continue triamcinolone ointment, wound care, recommend outpatient Derm evaluation.
�- Suspect that cirrhosis will limit his systemic therapeutic options.
DVT prophylaxis�SCDs
Full code
Total time spent to see the patient on the floor, examine the patient, review data and lab results, discuss treatment plan with patient, nursing staff around 45 minutes.
Physical Exam
General: Appears chronically ill, no acute distress
HEENT: Normocephalic, Atraumatic, EOMI, MMM
Respiratory: Tachypnea, mild respiratory distress, bibasilar crackles
Cardiac: Normal S1/S2, tachycardic rate, regular rhythm
GI: Tense abdomen
Extremities: No Clubbing, Cyanosis
Bilateral lower extremity edema noted
Neuro: Awake/alert
Bilateral hand tremors noted
Psych: Appears anxious
Derm: Severe psoriatic plaque on bilateral lower extremities, right greater than left
Anticipated Discharge: > 48 hours
Subjective/Interval History
-
Date of Service: March 22, 2024
Patient is lethargic this morning. Continues to have abdominal pressure. No fever, no vomiting.
Objective Data
-
Labs:
Laboratory Results
03/22/24
05:35
WBC 5.9
Hgb 9.9 L
Hct 29.9 L
Plt Count 122 L
PT 26.6 H
INR 2.45
Vital Signs:
Vital Signs
Temp Pulse Resp BP Pulse Ox
98.2 F 103 18 101/56 98
03/22/24 03:49 03/22/24 03:49 03/22/24 03:49 03/22/24 03:49 03/22/24 03:49
I&O
03/21/24 03/22/24 03/23/24
06:59 06:59 06:59
Output Total 200 / 200
Balance -200 / -200
[2024-03-22] MEDS: THIAMINE INJECTION 200 MG IV ×2 (09:18→19:44)
[2024-03-22] MEDS: ALDACTONE 50 MG PO (09:18)
[2024-03-22] MEDS: LASIX 80 MG PO (09:18)
[2024-03-22] MEDS: FOLVITE 1 MG PO (09:18)
[2024-03-22] MEDS: TRIAMCINOLONE ACETONIDE 0.1% OINTMENT TOPICAL ×2 (09:19→16:41)
--- NOTE | 2024-03-22 10:14 | PTCARENOTE ---
Pt left the floor for a Paracentesis & Abd US
--- NOTE | 2024-03-22 11:41 | W.PN.UPDATE ---
Update Note
Progress Note Update
- Paracentesis completed: 10L clear, yellow fluid removed.
[2024-03-22 11:50] LABS: Body Fluid Mononuclear 69.2 %; Body Fluid Polymorphonuclear 30.8 %; Body Fluid WBC 13 /CUMM
[2024-03-22 11:52] LABS: Body Fluid Second Tech DW
[2024-03-22 12:05] LABS: Body Fluid Albumin < 1.0 g/dl; Body Fluid Protein < 2.0 g/dl
--- NOTE | 2024-03-22 12:23 | W.PN.GI.CBS2 ---
Today's Communication / Plan
-
-- Ordered albumin, held diuretics for today, added lactulose, labs in for tomorrow
Assessment / Plan
-
Pt is a 58 yo male with a PMH significant for decompensated liver cirrhosis with recurrent ascites, esophageal varices, portal HTN, ETOH abuse, extensive psoriasis, depression, current cigarette smoker, with admission s/p fall and unable to get
up for 10 hours. On admission pt admits to recurrent ETOH use with LE swelling and non compliance with medications. He follow with Dr. Camarena in office but was as now show on follow up in January. He admits to period of sobriety from May til
about 2 months ago and now consume about 1 bottle vodka every other day til 1 week ago when he was unable to walk with increasing abdominal swelling. Weight has been up and down but in 04/2023 105kg and now 125 kg on admission. He admits to
abdominal pressure and swelling but denies dysphagia, GERD, nausea, vomiting, diarrhea, constipation, or rectal bleeding. On admission noted with WBC 7.6, hbg 11.6, platelets 128, na 131, K 4,5, creat 0.8, glucose 62, odalys 10, AST 217, ALT 55, alk
phos 123, INR 2.53, CK 682, albumin 2.8.
prior liver serology 2021 with + SMA, SLA and AMA. Neg hepatitis panel without immunity, A1At, Ceruloplasmin and stable iron studies with ferritin in 100 range
last scopes:
EGD 07/29/23- [facility] - Grade I esophageal varices. portal HTN gastropathy, normal duodenum
Colonoscopy: 04/[address] Camarena: Benign hyperplastic polyps, sigmoid diverticulosis.
-cirrhosis with decompensation
-ETOH hepatitis
-marked ascites/anasarca
-tachycardia
-prior elevated SMA, SLA, AMA
-s/p fall with concern for Rhabdo
-coagulopathy
-hyponatremia
-hypoalbuminemia
-thrombocytopenia
-hx Grade I EV/portal HTN
-active ETOH and tobacco use
other med problems:
-extensive psoriasis
-depression
-medical non compliance
PLAN:
Etiology of symptoms with concern for liver decompensation-- cirrhosis but with recent heavy ETOH use component of ETOH hepatitis pt also with elevated SMA, SLA and AMA in past
agree with large volume paracentesis diagnostic and therapeutic as tolerated
check fluid for cell count, cx etc -- call for further albumin post -tap, pt was given some albumin in ER
current DF 76.1 with control of 13, MELD 3.0 28
cont to trend labs
check US with Doppler after para completed
check urine cx, blood cx, CXR to ensure no infection as may need steroids with component of ETOH hepatitis and high DF
2 gram Na diet
daily weights up 25 kg since last weight in April 2023
per medical team started on Aldactone 50mg BID and Lasix 80mg in ER
will check AFP and repeat AMA, SMA, and SLA with prior elevation
add dose vitamin K with marked elevated INR
monitor for ETOH withdrawal
cont thiamine and folate
counseled in quitting ETOH
wound care consult with extensive anasarca and psoriasis
OP follow up with Dr. Moreno - tertiary eval if not improving no records in [facility] for prior Dr. Tiffanie prasad
03/22/2024 -went for 10 L paracentesis that is negative for SBP; ordered 25% albumin x 3 bags
-- Mild asterixis on exam, start lactulose
-- Hold diuretics today in the setting of 10 L paracentesis, if kidney function is okay tomorrow we will restart at 100 mg spironolactone once in the morning with 40 mg of Lasix once in the morning
-- Continue folic acid and thiamine
-- Alcohol withdrawal protocol, so far infectious workup has been negative
-- Good protein diet, low-sodium
Subjective
Subjective
Date of Service: March 22, 2024
No significant change. Patient is waiting on his paracentesis this morning. Denies any confusion
Objective
Data Reviewed
Laboratory Data:
Laboratory Results
03/22/24 05:35
03/21/24 12:52
Laboratory Results
PT 26.6 Sec (11.4-14.6) H 03/22/24 05:35
INR 2.45 03/22/24 05:35
APTT 50.4 Sec (23.4-35.0) H 03/21/24 03:09
Phosphorus Cancelled 03/21/24 09:51
Magnesium Cancelled 03/21/24 09:51
Total Bilirubin 9.8 mg/dl (0.2-1.3) H 03/21/24 12:52
AST 188 U/L (17-59) H 03/21/24 12:52
ALT 52 U/L (0-50) H 03/21/24 12:52
Alkaline Phosphatase 103 U/L (38-126) 03/21/24 12:52
Vital Signs and I&O:
Vital Signs
Temp Pulse Resp BP Pulse Ox
97.8 F 95 15 101/68 97
03/22/24 10:20 03/22/24 11:28 03/22/24 11:28 03/22/24 11:28 03/22/24 11:20
I&O
03/21/24 03/22/24 03/23/24
06:59 06:59 06:59
Output Total 200 / 200
Balance -200 / -200
Physical Exam
Physical Exam
HEENT: Anicteric (+icteric)
GI: Distended
Extremities: Edema
Neuro: Other (+asterixis)
[2024-03-22] MEDS: ATIVAN 1 MG IV (13:02)
[2024-03-22 13:22] LABS: Ammonia 35 umol/L (9-30)
[2024-03-22] MEDS: FLEXBUMIN 100 IV ×2 (14:46→16:40)
[2024-03-22] MEDS: DUPHALAC/CHRONULAC 20 GRAMS PO ×2 (14:58→19:45)
[2024-03-22] MEDS: FLEXBUMIN 50 IV (18:02)
[2024-03-22] MEDS: LOVENOX SC (18:04)
[2024-03-22] MEDS: TRIAMCINOLONE ACETONIDE 0.1% OINTMENT 1 APPLIC TOPICAL (23:18)
[2024-03-23 03:30] VITALS: BP 110/69
[2024-03-23 06:00] VITALS: BMI 31.0
[2024-03-23 07:30] VITALS: BP 104/57
[2024-03-23 07:35] LABS: INR 2.84; PT 29.8 Sec (11.4-14.6)
[2024-03-23 07:52] LABS: ALT (SGPT) 47 U/L (0-50); AST (SGOT) 178 U/L (17-59); Albumin 2.2 g/dl (3.5-5.0); Alkaline Phosphatase 74 U/L (38-126); Calcium 7.5 mg/dl (8.4-10.2); Carbon Dioxide 29 mmol/L (22-30); Chloride 96 mmol/L (98-107); Estimated Creatinine Clearance > 125 ml/min; Glucose 65 mg/dl (70-99); Hemoglobin 8.8 g/dL (13.0-18.0); Mean Corp Hgb Conc. 33.8 g/dL (33.0-37.0); Mean Corpuscular Hgb 32.1 pg (27.0-31.0); Mean Corpuscular Volume 94.9 fL (80.0-94.0); Potassium 3.4 mmol/L (3.5-5.1); Red Blood Cell Count 2.74 10^6/uL (4.70-6.10); Red Cell Dist. Width 24.1 % (11.5-14.5); Sodium 134 mmol/L (135-145); Total Bilirubin 6.9 mg/dl (0.2-1.3); Total Protein 6.6 g/dl (6.3-8.2); White Blood Cell Count 4.2 10^3/uL (4.8-10.8); eGFR > 60.00
[2024-03-23 08:04] LABS: Blood Urea Nitrogen 12 mg/dl (9-20)
[2024-03-23] MEDS: FOLVITE 1 MG PO (09:07)
[2024-03-23] MEDS: THIAMINE INJECTION 200 MG IV ×2 (09:08→19:35)
[2024-03-23] MEDS: TRIAMCINOLONE ACETONIDE 0.1% OINTMENT 1 APPLIC TOPICAL ×3 (09:10→22:39)
[2024-03-23] MEDS: DUPHALAC/CHRONULAC PO (09:18)
--- NOTE | 2024-03-23 09:19 | WOUNDNOTE ---
R LEG (ANTERIOR LATERAL)
--- NOTE | 2024-03-23 09:32 | WOUNDNOTE ---
[facility] RN note: Patient admitted with ascites, weakness, leg swelling. Patient slid onto his floor from chair at home. He lives alone.
See H&P for complete history.
PMH: alcoholic cirrhosis, esophageal varices s/p bands, smoker.
Wound Location and type/assessment: Patient admitted with: generalize psoriasis mostly on R leg, abdomen with scabbed areas on RLE, feet. Triamcinolone ointment on order. L elbow and R wrist scabbed abrasion. Blanchable red heels. Trace-+1 LE
edema. +Pedal pulses heard via portable Doppler.
Appetite: good.
Pressure redistribution devices in place: [employer] Accumax. Patient moves self in bed.
Plan: t/c SPD and ordered Bariatric air chair cushion, knee high size F Medigrip and Vashe wound cleanser. Updated and confirmed orders with Dr. Deon Payton. Discussed with RN Reji.
Care plan to be updated, will sign off, call if needed. Patient stated he stopped going to a laundry sorter because they weren't helping him. Suggest he follow up with laundry sorter.
[2024-03-23 11:45] VITALS: BP 103/54
[2024-03-23 12:13] LABS: Mean Platelet Volume 8.6 fL (7.4-10.4); Platelet Count 85 10^3/uL (130-400)
--- NOTE | 2024-03-23 12:23 | W.PN.UPDATE ---
Update Note
Progress Note Update
I saw and evaluated the patient. I reviewed the resident�s note and agree with findings and plan as documented in the resident�s note.
Gen: NAD, AAOx3, appears chronically ill.
Eyes: EOMI, PERRLA, mild scleral icterus.
Neck: supple.
CV: RRR, +S1/S2, no m/r/g.
Resp: CTAB, no rales, wheezes, or rhonchi.
Abd: +BS, soft, significant distention due to ascites, ND
Skin: intact
Neuro: CN 2-12 intact, non-focal.
Psych: Normal mood and affect.
Alcoholic hepatitis, severe ascites, and decompensated alcoholic cirrhosis due to alcohol abuse:
-last drink 10 days INSURANCE VERIFICATION REP
-GI following
-cont lactulose
-s/p 10L paracentesis on 03/22 (no SBP), sp IV albumin
-cont MSAS protocol (thiamine/folate/Ativan PRN)
-Coagulopathy due to cirrhosis s/p Vit K
-Pancytopenia due to cirrhosis
-c/s IR for another paracentesis
-c/s palliative care
Severe Psoriasis:
-Marked skin changes c/w advanced psoriasis over multiple surfaces - most severe on RLE, lower abdomen and perineum.
-Continue triamcinolone ointment, wound care, recommend outpatient Derm evaluation.
-Suspect that cirrhosis will limit his systemic therapeutic options.
Hypokalemia: PO K
FULL/SCDs
--- NOTE | 2024-03-23 13:08 | W.PN.GI.CBS2 ---
Addendum entered and electronically signed by Viviane Serrato DO 03/23/24 17:23:
Patient seen and examined independently of [employer]RICATOR. I agree with her note with my additions below
Shayne is somnolent but arousable. Has significant reaccumulation of ascites.
Status post 10 L on his paracentesis yesterday with albumin replacement. Negative for SBP.
# Grade 1 hepatic encephalopathy. Started on lactulose
-- Potassium above 4, no overt bleeding, ultrasound was a limited study even after 10 L of ascites removed
-- No overt bleeding, no bowel movements here, no signs of infection on blood cultures, urine, ascitic fluid, chest x-ray
# DF 76, MELD 3.0 28
-- Bilirubin is improving on admission 10.3 today 6.9 his baseline is elevated around 4, INR is also elevated
-- He has a very poor diet and is likely malnourished and will give him another day of vitamin K since his INR is 2.8
-- Monitor for alcohol withdrawal, continue thiamine and folate, discussed alcohol cessation again
-- Goals of care need to be addressed. Patient lives alone and drives to the alcohol store although he has not been able to in the last 10 days
-- Consider steroids but with no follow-up and disposition issues this may be more hazardous
# Large volume ascites -patient had 10 L removed yesterday and looks like he has another 8 L today
-- Restart diuretics since his renal function maintain normal despite 10 L removal. He did get albumin post.
-- Diuretics at 40 Lasix and 100 of spironolactone all in the morning to help maintain potassium balance
Overall, prognosis long-term is poor and goals of care need to be discussed especially disposition
Original Note:
Today's Communication / Plan
-
Etiology of symptoms with concern for liver decompensation-- cirrhosis but with recent heavy ETOH use component of ETOH hepatitis pt also with elevated SMA, SLA and AMA in past
s/p 10 liter para 2/2 neg SBP with albumin replacement
may need repeat para next 1-2 days
K 3.4 for supplement now
will restart Lasix 40mg and Aldactone 100mg later today and give 1/2 dose tonight after K replacement
US doppler as noted
on admission DF 76.1 with control of 13, MELD 3.0 28 -will review with Dr. Serrato for steroids though bili is improving
recalculated today DF 84.1, meld 28 with continue increase in INR
cont to trend labs
urine/blood cx neg
2 gram Na diet advised good nutrition
daily weights some improvement with tap
AFP and repeat AMA, SMA, and SLA pending
add another dose vitamin K with cont elevated INR
monitor for ETOH withdrawal
cont thiamine and folate
counseled in quitting ETOH
cont lactulose with some sleepiness in exam
OP follow up with Dr. Moreno - tertiary eval if not improving no records in [facility] for prior Dr. Moreno evosei
briefly discussed status with patient with concern for goals of care -- he was drifting off in conversation--I left message for daughter to review status
Assessment / Plan
-
Pt is a 58 yo male with a PMH significant for decompensated liver cirrhosis with recurrent ascites, esophageal varices, portal HTN, ETOH abuse, extensive psoriasis, depression, current cigarette smoker, with admission s/p fall and unable to get
up for 10 hours. On admission pt admits to recurrent ETOH use with LE swelling and non compliance with medications. He follow with Dr. Camarena in office but was as now show on follow up in January. He admits to period of sobriety from May til
about 2 months ago and now consume about 1 bottle vodka every other day til 1 week ago when he was unable to walk with increasing abdominal swelling. Weight has been up and down but in 04/2023 105kg and now 125 kg on admission. He admits to
abdominal pressure and swelling but denies dysphagia, GERD, nausea, vomiting, diarrhea, constipation, or rectal bleeding. On admission noted with WBC 7.6, hbg 11.6, platelets 128, na 131, K 4,5, creat 0.8, glucose 62, odalys 10, AST 217, ALT 55, alk
phos 123, INR 2.53, CK 682, albumin 2.8.
prior liver serology 2021 with + SMA, SLA and AMA. Neg hepatitis panel without immunity, A1At, Ceruloplasmin and stable iron studies with ferritin in 100 range
last scopes:
EGD 07/29/23- [facility] - Grade I esophageal varices. portal HTN gastropathy, normal duodenum
Colonoscopy: 04/[address] Camarena: Benign hyperplastic polyps, sigmoid diverticulosis.
03/23/24- US doppler Hepatic cirrhotic morphology.Markedly limited abdominal Doppler with hepatic veins not visualized, likely hepatofugal portal blood flow and unremarkable hepatic artery low resistance waveform.
Marked ascites.Gallbladder stones and sludge. Gallbladder wall thickening which may be secondary to ascites. Grossly negative sonographic Alexander's sign.
Markedly limited visualization/nonvisualized common bile duct, pancreas, abdominal aorta and IVC.
-cirrhosis with decompensation
-ETOH hepatitis
-marked ascites/anasarca
-hepatic encephalopathy
-prior elevated SMA, SLA, AMA
-s/p fall with concern for Rhabdo
-coagulopathy
-hyponatremia
-hypoalbuminemia
-thrombocytopenia
-hx Grade I EV/portal HTN
-active ETOH and tobacco use
other med problems:
-extensive psoriasis
-depression
-medical non compliance
PLAN:
Etiology of symptoms with concern for liver decompensation-- cirrhosis but with recent heavy ETOH use component of ETOH hepatitis pt also with elevated SMA, SLA and AMA in past
s/p 10 liter para 2/2 neg SBP with albumin replacement
may need repeat para next 1-2 days
K 3.4 for supplement now
will restart Lasix 40mg and Aldactone 100mg later today and give 1/2 dose tonight after K replacement
US doppler as noted
on admission DF 76.1 with control of 13, MELD 3.0 28 -will review with Dr. Serrato for steroids though bili is improving
recalculated today DF 84.1, meld 28 with continue increase in INR
cont to trend labs
urine/blood cx neg
2 gram Na diet advised good nutrition
daily weights some improvement with tap
AFP and repeat AMA, SMA, and SLA pending
add another dose vitamin K with cont elevated INR
monitor for ETOH withdrawal
cont thiamine and folate
counseled in quitting ETOH
cont lactulose with some sleepiness in exam
OP follow up with Dr. Moreno - tertiary eval if not improving no records in [facility] for prior Dr. Tiffanie prasad
briefly discussed status with patient with concern for goals of care -- he was drifting off in conversation--I left message for daughter to review status
Subjective
Subjective
Date of Service: March 23, 2024
wt 2/2 122 kg and down to 106 kg on 2 gram Na diet, no stools recorded
Objective
Data Reviewed
Laboratory Data:
Laboratory Results
03/23/24 07:06
03/23/24 07:06
Laboratory Results
PT 29.8 Sec (11.4-14.6) H 03/23/24 07:06
INR 2.84 03/23/24 07:06
APTT 50.4 Sec (23.4-35.0) H 03/21/24 03:09
Phosphorus Cancelled 03/21/24 09:51
Magnesium Cancelled 03/21/24 09:51
Total Bilirubin 6.9 mg/dl (0.2-1.3) H 03/23/24 07:06
AST 178 U/L (17-59) H 03/23/24 07:06
ALT 47 U/L (0-50) 03/23/24 07:06
Alkaline Phosphatase 74 U/L (38-126) 03/23/24 07:06
Vital Signs and I&O:
Vital Signs
Temp Pulse Resp BP Pulse Ox
98.3 F 94 16 104/57 95
03/23/24 07:30 03/23/24 07:30 03/23/24 07:30 03/23/24 07:30 03/23/24 07:30
I&O
03/22/24 03/23/24 03/24/24
06:59 06:59 06:59
Intake Total 480 / 480
Output Total 125 / 125
Balance 355 / 355
Physical Exam
Physical Exam
HEENT: Other (jaundice )
Cardiology: Normal Sinus Rhythm
Pulmonary: Other (decreased bases )
GI: Soft, Distended, Non Tender and Other (diffuse psoraisis on abdomen)
Extremities: Edema and Other (extensive psoriasis throughout )
Neuro: Other (sleepy but arousable )
[2024-03-23] MEDS: KCL 40 MEQ PO (13:10)
--- NOTE | 2024-03-23 14:09 | W.CON.PAL ---
Consultation
-
Date/Time Consultation Requested: 03/23/24
Date/Time Consultation Performed: 03/23/24
Performing Provider: Nohemi Foy
Reason for Consult: Goals of Care Discussion
Primary Diagnosis: decompensated liver cirrhosis
Reason for Admission
Illness Course/HPI
58 year old M with PMH of decompensated ETOH liver cirrhosis with recurrent ascites, esophageal varices, portal HTN, psoriasis, depression admitted s/p fall and unable to get up for 10 hours.
On admission labs significant for Na 131, K 4,5, creat 0.8, glucose 62, odalys 10, AST 217, ALT 55, alk phos 123, INR 2.53, CK 682, albumin 2.8. Underwent para with 10L removed, now with recurrent ascites and s/p 2nd para today. MELD is 28 with
worsening liver function.
Objective Data
-
Objective Data:
Vital Signs
Temp Pulse Resp BP Pulse Ox
98.3 F 94 16 104/57 95
03/23/24 07:30 03/23/24 07:30 03/23/24 07:30 03/23/24 07:30 03/23/24 07:30
Laboratory Results
03/23/24 07:06
03/23/24 07:06
PT 29.8 Sec (11.4-14.6) H 03/23/24 07:06
INR 2.84 03/23/24 07:06
APTT 50.4 Sec (23.4-35.0) H 03/21/24 03:09
Ammonia 35 umol/L (9-30) H 03/22/24 12:57
Total Protein 6.6 g/dl (6.3-8.2) 03/23/24 07:06
Albumin 2.2 g/dl (3.5-5.0) L 03/23/24 07:06
Urine Color Yvette 03/21/24 07:06
Urine Clarity Clear (Clear) 03/21/24 07:06
Urine pH 5.0 (5.0-9.0) 03/21/24 07:06
Ur Specific [place] 1.025 (<1.030) 03/21/24 07:06
Urine Ketones 2+ (Negative) A 03/21/24 07:06
Urine Occult Blood 1+ (Negative) A 03/21/24 07:06
Urine Nitrite Negative (Negative) 03/21/24 07:06
Urine Bilirubin 3+ (Negative) A 03/21/24 07:06
Ur Leukocyte Esterase 1+ (Negative) A 03/21/24 07:06
Urine Albumin 2+ (Neg - Trace) A 03/21/24 07:06
Palliative Performance Scale
Palliative Performance Scale:
PPS Level Ambulation Activity & Evidence of Disease Self Care Intake Conscious Level
100% Full Normal Activity & Work; Full Intake Full
No Evidence of Disease
90% Full Normal Activity & Work; Full Normal Full
Some Evidence of Disease
80% Full Normal Activity with Effort Full Normal or Full
Some Evidence of Disease Reduced
70% Reduced Unable Normal Job/Work Full Normal or Full
Significant Disease Reduced
60% Reduced Unable Hobby/Housework Occasional Normal or Full or Confusion
Significant Disease Assistance Reduced
50% Mainly Sit/Lie Unable to do Any Work Considerable Normal or Full or Confusion
Extensive Disease Assistance Req'd Reduced
40% Mainly in Bed Unable to do Most Activity Mainly Assistance Normal or Full or Drowsy;
Extensive Disease Reduced +/- Confusion
30% Totally Bed Unable to do Any Activity Total Care Normal or Full or Drowsy;
Bound Extensive Disease Reduced +/- Confusion
20% Totally Bed Bound Unable to do Any Activity Total Care Minimal to Full or Drowsy;
Extensive Disease Sips +/- Confusion
10% Totally Bed Bound Unable to do Any Activity Total Care Mouth Care Drowsy or Coma;
Extensive Disease Only +/- Confusion
0%
PPS Score Level:
Physical Exam
-
General: Appears Chronically Ill and Other (lethargic )
HEENT: Normocephalic
Respiratory: Clear to Auscultation
Cardiac: Regular Rhythm
GI: Distended and Ascites
Skin: Warm
Neuro: Other (lethargic)
Assessment / Plan
-
Assessment/Plan:
58 year old M with etoh cirrhosis admitted s/p fall found to be in decompensated cirrhosis.
- no family at bedside, patient was lethargic and difficult to engage. Will attempt again tomorrow and reach out to daughter. GI has attempted to reach out to daughter as well and left message.
- per chart review seems he lives alone, unclear dispo at this time
Care Reviewed
Data Reviewed
Radiology procedure: Image Reviewed
Medical Tests: I reviewed
Reviewed with: Patient and Physician
[2024-03-23] MEDS: MEPHYTON 10 MG PO (14:19)
[2024-03-23 15:20] VITALS: BP 103/59
--- NOTE | 2024-03-23 15:28 | W.PN.HOSP.TC ---
Today's Communication/Plan
-
.
Assessment / Plan
Assessment / Plan
HPI: 58-year-old male with decompensated liver cirrhosis with recurrent ascites, prior esophageal varices with no prior bleeding, active alcohol abuse who is interested in alcohol cessation, active tobacco use who called the ambulance after he was
unable to get up from the floor. He lives alone, drives to get his vodka but for the past week he is pretty much been on the couch. Has not been eating much due to the inability to get around. He lives in a split-level. The last time he had any
vodka was about 10 days ago. Denies going into withdrawal. He has been in a 30-day rehab and is interested in stopping alcohol and smoking.
1. Decompensated Alcoholic Cirrhosis with Severe Ascites
- Appreciate GI reccs
- Current DF 76; MELD 3.0 28 -driven by his INR and total bilirubin
- Continue lactulose/Lasix/Aldactone
- S/p Large Vol (10L) paracentesis (03/22) with albumin supplementation
- Postprocedure US Abd; Marked ascitic fluid remains
- Repeat paracentesis
- Follow up paracentesis fluid analysis from 03/22
- Consult Palliative Care
3. Alcohol dependency
- Last drink was 10 days prior to admission
- Thiamine/Folate/PRN Ativan
- Continue MSAS
4. Coagulopathy
Status post vitamin K
5. Chronic Pancytopenia
- /2 Liver Dz; monitor
#Malignant Right Pleural Effusion
#ASCVD
#Hypertension
#Coagulopathy
Status post vitamin K
#Severe Psoriasis
�- Marked skin changes c/w advanced psoriasis over multiple surfaces - most severe on RLE, lower abdomen and perineum.
�- Continue triamcinolone ointment, wound care, recommend outpatient Derm evaluation.
�- Suspect that cirrhosis will limit his systemic therapeutic options.
DVT prophylaxis�SCDs
Full code=
Anticipated Discharge: 24 - 48 hours
Subjective/Interval History
-
Date of Service: March 23, 2024
Patient seen and examined while resting in bed. Patient appears sleepy, will answer questions but starts to fall asleep. When awake is able to speak in full coherent sentences but falls asleep easily during conversation. When asked if anything is
bother him, says that hes feeling much better compared to yesterday. 'Just tired'.
Objective Data
-
Labs:
Laboratory Results
03/23/24
07:06
WBC 4.2 L
Hgb 8.8 L
Hct 26.0 L
Plt Count 85 L D
PT 29.8 H
INR 2.84
Sodium 134 L
Potassium 3.4 L
Chloride 96 L
Carbon Dioxide 29
BUN 12
Creatinine 0.7
Glucose 65 L
Calcium 7.5 L
Total Bilirubin 6.9 H
AST 178 H
ALT 47
Alkaline Phosphatase 74
Vital Signs:
Vital Signs
Temp Pulse Resp BP Pulse Ox
98.7 F 104 20 103/54 97
03/23/24 11:45 03/23/24 11:45 03/23/24 11:45 03/23/24 11:45 03/23/24 11:45
I&O
03/22/24 03/23/24 03/24/24
06:59 06:59 06:59
Intake Total 480 / 480
Output Total 125 / 125
Balance 355 / 355
Review of Systems
-
History Source: Patient
Constitutional: Reports Fatigue
Respiratory: Reports No Symptoms
Cardiac: Reports No Symptoms
Abdomen/GI: Reports Other (Distension); Denies Abdominal Pain, Nausea or Vomiting
Physical Exam
-
General: No Apparent Distress and Comfortable
HEENT: Normocephalic and Atraumatic
Respiratory: Clear to Auscultation
Cardiac: Regular Rhythm and S1/S2
GI: Distended
Musculoskeletal: Edema, Right Lower Extrem and Edema, Left Lower Extrem
Skin: Other (diffuse psoriatic lesions)
Neuro: Other (somnolent but arousable)
Psych: Calm
Data Reviewed
-
Labs: Labs Reviewed by me
--- NOTE | 2024-03-23 15:33 | CM ---
CM attempted bedside meeting to complete assessment
Pt kept on falling asleep
VM left for dtr/Yvette to obtaib PLOF
Per chart review, pt was residing alone
Long hx with alcohol use
was discharged to [facility] for inpt tx in April 2023
--- NOTE | 2024-03-23 15:41 | PTCARENOTE ---
Call was placed for daughter (primary contact) per request. Daughter did not answer.
--- NOTE | 2024-03-23 15:41 | CM ---
CM spoke with dtr
Pt resides alone in a 3SH with 2 CAITY
5 steps down then to main lviing area where he sleeps in the couch
Sponge bathes in powder room
Indep with ADLs with use of a SPC, drives+
Dtr provides errands assistance as needed
PCP- Marley Melton
Rx- Anne Marie
PT following with SNF recs currently
Requested OT evosei
If SNFs needs on dc, will need Devin dickson
Will benefit from [facility] once appropriate
Discharge Disposition- TBD, SNF vs inpt D/A
--- NOTE | 2024-03-23 16:20 | W.PN.UPDATE ---
Update Note
Progress Note Update
pt lethargic on evaluation and per review with palliative care. I spoke with Daughter Yvette who related he did try ETOH rehab at [facility] then OP rehab but continued to drink again with non compliance with follow up. We discussed aggressive
care with transplant eval vs considering comfort as has not been compliant with ETOH abstinence and hepatology follow up. Also discussed code status. She will review with him tonight to decide of goals of care. updated Dr. Coppola and nursing staff.
Will add enema PRN if not taking lactulose orally
[2024-03-23] MEDS: LASIX 20 MG PO (17:10)
[2024-03-23] MEDS: LOVENOX 40 MG SC (17:10)
[2024-03-23] MEDS: ALDACTONE 50 MG PO (19:35)
[2024-03-23] MEDS: DUPHALAC/CHRONULAC 20 GRAMS PO (19:36)
[2024-03-23 19:43] VITALS: BP 111/66
[2024-03-23] MEDS: ATIVAN 1 MG PO (19:44)
[2024-03-23 20:10] LABS: AFP Male/Tumor Marker 2 ng/mL (0-9)
[2024-03-23 23:55] VITALS: BP 106/64
[2024-03-24] VITALS (11 sets, daily range): BP systolic 82–117; BP diastolic 45–73; PULSE 91; BMI 30.9
[2024-03-24 07:45] LABS: Hematocrit 28.3 % (39.0-52.0); Hemoglobin 9.1 g/dL (13.0-18.0); Mean Corp Hgb Conc. 32.2 g/dL (33.0-37.0); Mean Corpuscular Hgb 31.3 pg (27.0-31.0); Mean Corpuscular Volume 97.3 fL (80.0-94.0); Mean Platelet Volume 8.8 fL (7.4-10.4); Platelet Count 107 10^3/uL (130-400); Red Blood Cell Count 2.91 10^6/uL (4.70-6.10); Red Cell Dist. Width 24.3 % (11.5-14.5); White Blood Cell Count 4.9 10^3/uL (4.8-10.8)
[2024-03-24 07:50] LABS: INR 2.62
[2024-03-24 08:15] LABS: ALT (SGPT) 48 U/L (0-50); AST (SGOT) 166 U/L (17-59); Albumin 2.2 g/dl (3.5-5.0); Alkaline Phosphatase 112 U/L (38-126); Blood Urea Nitrogen 9 mg/dl (9-20); Calcium 7.4 mg/dl (8.4-10.2); Carbon Dioxide 32 mmol/L (22-30); Chloride 97 mmol/L (98-107); Estimated Creatinine Clearance > 125 ml/min; Glucose 80 mg/dl (70-99); Potassium 3.5 mmol/L (3.5-5.1); Sodium 135 mmol/L (135-145); Total Bilirubin 6.2 mg/dl (0.2-1.3); Total Protein 6.7 g/dl (6.3-8.2); eGFR > 60.00
[2024-03-24] MEDS: ALDACTONE 50 MG PO ×2 (09:19→21:06)
[2024-03-24] MEDS: VITAMIN B1 100 MG PO ×2 (09:19→21:06)
[2024-03-24] MEDS: DUPHALAC/CHRONULAC 20 GRAMS PO ×2 (09:19→21:06)
[2024-03-24] MEDS: TRIAMCINOLONE ACETONIDE 0.1% OINTMENT 1 APPLIC TOPICAL ×3 (09:20→21:21)
[2024-03-24] MEDS: LASIX 40 MG PO (09:20)
[2024-03-24] MEDS: FOLVITE 1 MG PO (09:20)
--- NOTE | 2024-03-24 09:33 | W.PN.HOSP.TC ---
Today's Communication/Plan
-
.
Assessment / Plan
Assessment / Plan
HPI: 58-year-old male with decompensated liver cirrhosis with recurrent ascites, prior esophageal varices with no prior bleeding, active alcohol abuse who is interested in alcohol cessation, active tobacco use who called the ambulance after he was
unable to get up from the floor. He lives alone, drives to get his vodka but for the past week he is pretty much been on the couch. Has not been eating much due to the inability to get around. He lives in a split-level. The last time he had any
vodka was about 10 days ago. Denies going into withdrawal. He has been in a 30-day rehab and is interested in stopping alcohol and smoking.
1. Decompensated Alcoholic Cirrhosis with Severe Ascites
- Appreciate GI reccs
- Current DF 76; MELD 3.0 28 -driven by his INR and total bilirubin
- Continue lactulose/Lasix/Aldactone
- S/p Large Vol (10L) paracentesis (/) with albumin supplementation
- Postprocedure US Abd; Marked ascitic fluid remains
- Repeat paracentesis today
- Appreciate Palliative Care; patient is poor candidate for transplantation; consider palliative.
3. Alcohol dependency
- Last drink was 10 days prior to admission
- Thiamine/Folate/PRN Ativan
- Continue MSAS
4. Coagulopathy
Status post vitamin K
5. Chronic Pancytopenia
- 2/2 Liver Dz; monitor
#Malignant Right Pleural Effusion
#ASCVD
#Hypertension
#Coagulopathy
Status post vitamin K
#Severe Psoriasis
�- Marked skin changes c/w advanced psoriasis over multiple surfaces - most severe on RLE, lower abdomen and perineum.
�- Continue triamcinolone ointment, wound care, recommend outpatient Derm evaluation.
�- Suspect that cirrhosis will limit his systemic therapeutic options.
DVT prophylaxis�SCDs
Full code=
Anticipated Discharge: Today
Subjective/Interval History
-
Date of Service: March 24, 2024
Patient seen and examined resting in chair, eating his breakfast. No new complaints this AM. Awaiting repeat paracentesis today.
Objective Data
-
Labs:
Laboratory Results
03/24/24
06:13
WBC 4.9
Hgb 9.1 L
Hct 28.3 L
Plt Count 107 L D
PT 28.0 H
INR 2.62
Sodium 135
Potassium 3.5
Chloride 97 L
Carbon Dioxide 32 H
BUN 9
Creatinine 0.7
Glucose 80
Calcium 7.4 L
Total Bilirubin 6.2 H
AST 166 H
ALT 48
Alkaline Phosphatase 112
Vital Signs:
Vital Signs
Temp Pulse Resp BP Pulse Ox
98.7 F 86 20 114/60 95
03/24/24 07:30 03/24/24 09:19 03/24/24 07:30 03/24/24 09:19 03/24/24 07:30
I&O
03/23/24 03/24/24 03/25/24
06:59 06:59 06:59
Intake Total 480 / 480 960 / 960
Output Total 125 / 125 200 / 200
Balance 355 / 355 760 / 760
Review of Systems
-
History Source: Patient
Constitutional: Reports No Symptoms
Respiratory: Reports No Symptoms
Cardiac: Reports No Symptoms
Abdomen/GI: Reports Other (distension); Denies Abdominal Pain, Nausea or Vomiting
Neuro: Reports No Symptoms
Physical Exam
-
General: No Apparent Distress and Comfortable
HEENT: Normocephalic and Atraumatic
Respiratory: Clear to Auscultation
Cardiac: Regular Rhythm and S1/S2
GI: Distended
Musculoskeletal: Edema, Left Upper Extrem and Edema, Right Lower Extrem
Skin: Warm and Dry
Neuro: Awake and Alert
Psych: Calm
Data Reviewed
-
Labs: Labs Reviewed by me
--- NOTE | 2024-03-24 09:36 | W.PN.UPDATE ---
Update Note
Progress Note Update
I saw and evaluated the patient. I reviewed the resident�s note and agree with findings and plan as documented in the resident�s note.
No new complaints
Gen: NAD, Awake and alert, appears chronically ill.
Eyes: EOMI, PERRLA, mild scleral icterus.
Neck: supple.
CV: rmeains RRR, +S1/S2, no m/r/g.
Resp: CTAB, no rales, wheezes, or rhonchi.
Abd: +BS, soft, significant distention due to ascites, ND
Skin: intact, psoriasis most notable on RLE
Neuro: CN 2-12 intact, non-focal.
Psych: Normal mood and affect.
Abd U/S with doppler: EXTREMELY LIMITED STUDY. Hepatic cirrhotic morphology. Markedly limited abdominal Doppler with hepatic veins not visualized, likely hepatofugal portal blood flow and unremarkable hepatic artery low resistance waveform. Marked
ascites. Gallbladder stones and sludge. Gallbladder wall thickening which may be secondary to ascites. Grossly negative sonographic Alexander's sign. Markedly limited visualization/nonvisualized common bile duct, pancreas, abdominal aorta and IVC.
Alcoholic hepatitis, severe ascites, and decompensated alcoholic cirrhosis due to alcohol abuse:
-last drink 10 days [employer]
-GI following
-cont lactulose
-s/p 10L paracentesis on 03/22 (no SBP), s/p IV albumin
-cont MSAS protocol (thiamine/folate/Ativan PRN)
-Coagulopathy due to cirrhosis s/p Vit K
-Pancytopenia due to cirrhosis
-IR to do another paracentesis todya
-palliative care to reassess today, pt is hospice appropriate
Severe Psoriasis:
-Marked skin changes c/w advanced psoriasis over multiple surfaces - most severe on RLE, lower abdomen and perineum.
-Continue triamcinolone ointment, wound care, recommend outpatient Derm evaluation.
-Suspect that cirrhosis will limit his systemic therapeutic options.
Hypokalemia, resolved
FULL/SCDs
[2024-03-24] MEDS: FLEXBUMIN 50 IV (12:34)
[2024-03-24] MEDS: FLEXBUMIN 100 IV ×2 (12:35→14:27)
--- NOTE | 2024-03-24 14:06 | W.PN.GI.CBS2 ---
Addendum entered and electronically signed by Constantino Corrales MD 03/24/24 15:41:
Patient seen and examined, agree with nurse practitioner note. Patient is feeling much better today, denies abdominal pain, feels much better after repeat paracentesis. His mentation is also better, oriented x 3. His exam is benign with only
minimal ascites now, continued edema and psoriasis. I did extensive discussion with him and his daughter. He has acute alcoholic hepatitis is improving, with improvement in INR and bilirubin. Given improvement will hold on prednisone for now
given unclear future plans. His cirrhosis is decompensated with portal hypertension, varices, ascites, edema and encephalopathy, all of which are improving post paracentesis and with lactulose. We discussed complete alcohol abstinence which he
thinks he may or may not be compliant with. At this point would continue diuretics, lactulose and alcohol abstinence, salt restriction. Will plan repeat labs and office visit in the next 2 to 3 weeks, and he will contact Dr. Moreno who is seen in
the past. We discussed that the next steps are really up to him if he is compliant and willing to be abstinent of alcohol and continue to move forward. If he is not then comfort care would be appropriate.
Original Note:
Today's Communication / Plan
-
see detailed eval below
s/p para with albumin
cont diruertics
goal of care discussion
will review again with Dr. corrales for steroid-- concern for compliance
Assessment / Plan
-
Pt is a 58 yo male with a PMH significant for decompensated liver cirrhosis with recurrent ascites, esophageal varices, portal HTN, ETOH abuse, extensive psoriasis, depression, current cigarette smoker, with admission s/p fall and unable to get
up for 10 hours. On admission pt admits to recurrent ETOH use with LE swelling and non compliance with medications. He follow with Dr. Camarena in office but was as now show on follow up in January. He admits to period of sobriety from May til
about 2 months ago and now consume about 1 bottle vodka every other day til 1 week ago when he was unable to walk with increasing abdominal swelling. Weight has been up and down but in 04/2023 105kg and now 125 kg on admission. He admits to
abdominal pressure and swelling but denies dysphagia, GERD, nausea, vomiting, diarrhea, constipation, or rectal bleeding. On admission noted with WBC 7.6, hbg 11.6, platelets 128, na 131, K 4,5, creat 0.8, glucose 62, odalys 10, AST 217, ALT 55, alk
phos 123, INR 2.53, CK 682, albumin 2.8.
prior liver serology 2021 with + SMA, SLA and AMA. Neg hepatitis panel without immunity, A1At, Ceruloplasmin and stable iron studies with ferritin in 100 range
last scopes:
EGD 07/29/23- [facility] - Grade I esophageal varices. portal HTN gastropathy, normal duodenum
Colonoscopy: 04/[address] Camarena: Benign hyperplastic polyps, sigmoid diverticulosis.
03/23/24- US doppler Hepatic cirrhotic morphology.Markedly limited abdominal Doppler with hepatic veins not visualized, likely hepatofugal portal blood flow and unremarkable hepatic artery low resistance waveform.
Marked ascites.Gallbladder stones and sludge. Gallbladder wall thickening which may be secondary to ascites. Grossly negative sonographic Alexander's sign.
Markedly limited visualization/nonvisualized common bile duct, pancreas, abdominal aorta and IVC.
-cirrhosis with decompensation
-ETOH hepatitis
-marked ascites/anasarca
-hepatic encephalopathy
-prior elevated SMA, SLA, AMA
-s/p fall with concern for Rhabdo
-coagulopathy
-hyponatremia
-hypoalbuminemia
-thrombocytopenia
-hx Grade I EV/portal HTN
-active ETOH and tobacco use
other med problems:
-extensive psoriasis
-depression
-medical non compliance
PLAN:
Etiology of symptoms with concern for liver decompensation-- cirrhosis but with recent heavy ETOH use component of ETOH hepatitis pt also with elevated SMA, SLA and AMA in past
s/p 10 liter para 2/2 and repeat 03/24 for additional 10 liter neg SBP with albumin replacement
K 3.5 today
will start AM dosing of diuretic with Lasix 40mg and Aldactone 100mg
US doppler as noted
on admission DF 76.1 with control of 13, MELD 3.0 28 -will review with Dr. Serrato for steroids though bili is improving
recalculated / DF 84.1, meld 28 2/ with DF 75.2 and MELD 26
will again review with Dr. Corrales for steroids-- concern for compliance with medication and he is improving prior to starting
cont to trend labs
urine/blood cx neg
2 gram Na diet advised good nutrition
daily weights some improvement with para and diuresis
AFP and repeat AMA, SMA, and SLA pending
s/p vitamin K INR 2.6 today
monitor for ETOH withdrawal
cont thiamine and folate
counseled in quitting ETOH
cont lactulose BID then is PRN enema if unable to take
OP follow up with Dr. Moreno - tertiary eval if not improving no records in [facility] for prior Dr. Tiffanie prasad
Pt more awake today with daughter in room. We discussed options of aggressive care with hepatology follow up -- likely can be OP as patient MELD improving during admission vs comfort/hospice. Pt will consider options. Mobility not great. I spoke
with social work to review with family if SNF is option. He is very high risk to return to hospital with recurrent ascites. Will need close follow up on discharge. Will need to be arrange when dispo figured out.
reviewed with Dr. Coppola aiming to possible discharge in AM
Subjective
Subjective
Date of Service: March 24, 2024
cholesterol lowering 2 gram Na diet feeling a little better today
Objective
Data Reviewed
Laboratory Data:
Laboratory Results
03/24/24 06:13
03/24/24 06:13
Laboratory Results
PT 28.0 Sec (11.4-14.6) H 03/24/24 06:13
INR 2.62 03/24/24 06:13
APTT 50.4 Sec (23.4-35.0) H 03/21/24 03:09
Phosphorus Cancelled 03/21/24 09:51
Magnesium Cancelled 03/21/24 09:51
Total Bilirubin 6.2 mg/dl (0.2-1.3) H 03/24/24 06:13
AST 166 U/L (17-59) H 03/24/24 06:13
ALT 48 U/L (0-50) 03/24/24 06:13
Alkaline Phosphatase 112 U/L (38-126) 03/24/24 06:13
Vital Signs and I&O:
Vital Signs
Temp Pulse Resp BP Pulse Ox
97.8 F 82 15 107/67 96
03/24/24 10:51 03/24/24 11:57 03/24/24 11:57 03/24/24 11:57 03/24/24 11:51
I&O
03/23/24 03/24/24 03/25/24
06:59 06:59 06:59
Intake Total 480 / 480 960 / 960
Output Total 125 / 125 200 / 200
Balance 355 / 355 760 / 760
Physical Exam
Physical Exam
HEENT: Anicteric and Moist mucous membranes
Cardiology: Normal Sinus Rhythm
Pulmonary: Clear
GI: Soft, Distended (much improved after repeat 10 liter para ) and Tender (mild)
Extremities: Edema and Other (extensive psoriasis )
Neuro: Non Focal (more awake today)
[2024-03-24 14:12] LABS: Body Fluid WBC 25 /CUMM
[2024-03-24 14:13] LABS: Body Fluid Second Tech EM
[2024-03-24 14:48] LABS: F-Actin Antibody IgG 18 Units (0-19); Mitochondrial M2 Ab, IgG 10.5 Units (0.0-24.9)
[2024-03-24] MEDS: LOVENOX SC (17:33)
--- NOTE | 2024-03-24 18:26 | W.PN.PAL2 ---
Today's Communication
-
patient off floor at para during my rounds
attempted to call daughter - no answer
will follow up tomorrow - seems as though family/patient discussing next steps
Objective Data
-
Objective Data:
Vital Signs
Temp Pulse Resp BP Pulse Ox
97.8 F 90 20 117/69 99
03/24/24 15:15 03/24/24 15:15 03/24/24 15:15 03/24/24 15:15 03/24/24 15:15
Laboratory Results
03/24/24 06:13
03/24/24 06:13
PT 28.0 Sec (11.4-14.6) H 03/24/24 06:13
INR 2.62 03/24/24 06:13
APTT 50.4 Sec (23.4-35.0) H 03/21/24 03:09
Ammonia 35 umol/L (9-30) H 03/22/24 12:57
Total Protein 6.7 g/dl (6.3-8.2) 03/24/24 06:13
Albumin 2.2 g/dl (3.5-5.0) L 03/24/24 06:13
Urine Color Yvette 03/21/24 07:06
Urine Clarity Clear (Clear) 03/21/24 07:06
Urine pH 5.0 (5.0-9.0) 03/21/24 07:06
Ur Specific [place] 1.025 (<1.030) 03/21/24 07:06
Urine Ketones 2+ (Negative) A 03/21/24 07:06
Urine Occult Blood 1+ (Negative) A 03/21/24 07:06
Urine Nitrite Negative (Negative) 03/21/24 07:06
Urine Bilirubin 3+ (Negative) A 03/21/24 07:06
Ur Leukocyte Esterase 1+ (Negative) A 03/21/24 07:06
Urine Albumin 2+ (Neg - Trace) A 03/21/24 07:06
Palliative Performance Scale
Palliative Performance Scale:
PPS Level Ambulation Activity & Evidence of Disease Self Care Intake Conscious Level
100% Full Normal Activity & Work; Full Intake Full
No Evidence of Disease
90% Full Normal Activity & Work; Full Normal Full
Some Evidence of Disease
80% Full Normal Activity with Effort Full Normal or Full
Some Evidence of Disease Reduced
70% Reduced Unable Normal Job/Work Full Normal or Full
Significant Disease Reduced
60% Reduced Unable Hobby/Housework Occasional Normal or Full or Confusion
Significant Disease Assistance Reduced
50% Mainly Sit/Lie Unable to do Any Work Considerable Normal or Full or Confusion
Extensive Disease Assistance Req'd Reduced
40% Mainly in Bed Unable to do Most Activity Mainly Assistance Normal or Full or Drowsy;
Extensive Disease Reduced +/- Confusion
30% Totally Bed Unable to do Any Activity Total Care Normal or Full or Drowsy;
Bound Extensive Disease Reduced +/- Confusion
20% Totally Bed Bound Unable to do Any Activity Total Care Minimal to Full or Drowsy;
Extensive Disease Sips +/- Confusion
10% Totally Bed Bound Unable to do Any Activity Total Care Mouth Care Drowsy or Coma;
Extensive Disease Only +/- Confusion
0%
PPS Score Level:
[2024-03-24 23:04] LABS: Soluble Liver Antigen Ab 6.4 U (0.0-24.9)
[2024-03-25 03:20] VITALS: BP 90/38
[2024-03-25 04:00] VITALS: BP 108/56
[2024-03-25 06:00] VITALS: BMI 27.9
--- NOTE | 2024-03-25 06:37 | W.PN.GI.CBS2 ---
Today's Communication / Plan
-
Please see assessment and plan for details.
Assessment / Plan
-
1. Cirrhosis: Secondary to alcohol,decompensated with portal hypertension, varices, ascites, edema and encephalopathy, all of which are improving post paracentesis and with lactulose. There is also likely some component of acute alcoholic
hepatitis. Overall he is improving, LFTs and INR were improved yesterday. We discussed complete alcohol abstinence which he thinks he may or may not be compliant with. At this point would continue diuretics, lactulose and alcohol abstinence, salt
restriction. Will hold on prednisolone given improvement in LFTs and unsure follow-up. Will plan repeat labs and office visit in the next 2 to 3 weeks, and he will contact Dr. Moreno who is seen in the past if he wishes to be compliant. We
discussed that the next steps are really up to him if he is compliant and willing to be abstinent of alcohol and continue to move forward. If he is not then comfort care would be appropriate.
Subjective
Subjective
Date of Service: March 25, 2024
Patient feeling okay, no new events overnight, denies any significant Ramu pain, nausea or vomiting.
Objective
Data Reviewed
Laboratory Data:
Laboratory Results
PT 28.0 Sec (11.4-14.6) H 03/24/24 06:13
INR 2.62 03/24/24 06:13
APTT 50.4 Sec (23.4-35.0) H 03/21/24 03:09
Phosphorus Cancelled 03/21/24 09:51
Magnesium Cancelled 03/21/24 09:51
Total Bilirubin 6.2 mg/dl (0.2-1.3) H 03/24/24 06:13
AST 166 U/L (17-59) H 03/24/24 06:13
ALT 48 U/L (0-50) 03/24/24 06:13
Alkaline Phosphatase 112 U/L (38-126) 03/24/24 06:13
Vital Signs and I&O:
Vital Signs
Temp Pulse Resp BP Pulse Ox
98.4 F 93 18 108/56 96
03/24/24 23:09 03/24/24 23:09 03/24/24 23:09 03/25/24 04:00 03/24/24 23:09
I&O
03/23/24 03/24/24 03/25/24
06:59 06:59 06:59
Intake Total 480 / 480 960 / 960 480 / 480
Output Total 125 / 125 200 / 200 950 / 950
Balance 355 / 355 760 / 760 -470 / -470
Physical Exam
Physical Exam
General: NAD, alert and oriented x 3
Abdomen: normal bowel sounds, soft, no tenderness, no masses or bruits, mild ascites
[2024-03-25 07:30] VITALS: BP 98/61
[2024-03-25 07:39] LABS: Hematocrit 30.3 % (39.0-52.0); Hemoglobin 9.9 g/dL (13.0-18.0); Mean Corp Hgb Conc. 32.7 g/dL (33.0-37.0); Mean Corpuscular Hgb 31.6 pg (27.0-31.0); Mean Corpuscular Volume 96.8 fL (80.0-94.0); Mean Platelet Volume 9.2 fL (7.4-10.4); Platelet Count 109 10^3/uL (130-400); Red Blood Cell Count 3.13 10^6/uL (4.70-6.10); Red Cell Dist. Width 23.6 % (11.5-14.5); White Blood Cell Count 5.4 10^3/uL (4.8-10.8)
[2024-03-25 08:05] LABS: ALT (SGPT) 40 U/L (0-50); AST (SGOT) 119 U/L (17-59); Albumin 2.4 g/dl (3.5-5.0); Alkaline Phosphatase 85 U/L (38-126); Blood Urea Nitrogen 8 mg/dl (9-20); Calcium 7.9 mg/dl (8.4-10.2); Carbon Dioxide 30 mmol/L (22-30); Chloride 97 mmol/L (98-107); Estimated Creatinine Clearance > 125 ml/min; Glucose 90 mg/dl (70-99); Potassium 3.6 mmol/L (3.5-5.1); Sodium 134 mmol/L (135-145); Total Bilirubin 6.2 mg/dl (0.2-1.3); Total Protein 6.7 g/dl (6.3-8.2); eGFR > 60.00
[2024-03-25 08:14] LABS: INR 2.81
[2024-03-25 08:30] VITALS: BP 103/60
[2024-03-25] MEDS: ALDACTONE 100 MG PO (08:34)
[2024-03-25] MEDS: VITAMIN B1 100 MG PO ×2 (08:34→20:52)
[2024-03-25] MEDS: FOLVITE 1 MG PO (08:38)
[2024-03-25] MEDS: LASIX 40 MG PO (08:38)
[2024-03-25] MEDS: TRIAMCINOLONE ACETONIDE 0.1% OINTMENT 1 APPLIC TOPICAL ×3 (08:39→20:52)
[2024-03-25] MEDS: DUPHALAC/CHRONULAC 20 GRAMS PO ×2 (08:39→20:52)
--- NOTE | 2024-03-25 09:53 | W.PN.UPDATE ---
Update Note
Progress Note Update
I saw and evaluated the patient. I reviewed the resident�s note and agree with findings and plan as documented in the resident�s note.
No new complaints
Gen: NAD, Awake and alert, appears chronically ill.
Eyes: EOMI, PERRLA, mild scleral icterus.
Neck: supple.
CV: rmeains RRR, +S1/S2, no m/r/g.
Resp: CTAB, no rales, wheezes, or rhonchi.
Abd: +BS, soft, significant distention due to ascites, ND
Skin: intact, psoriasis most notable on RLE
Neuro: CN 2-12 intact, non-focal.
Psych: Normal mood and affect.
Abd U/S with doppler: EXTREMELY LIMITED STUDY. Hepatic cirrhotic morphology. Markedly limited abdominal Doppler with hepatic veins not visualized, likely hepatofugal portal blood flow and unremarkable hepatic artery low resistance waveform. Marked
ascites. Gallbladder stones and sludge. Gallbladder wall thickening which may be secondary to ascites. Grossly negative sonographic Alexander's sign. Markedly limited visualization/nonvisualized common bile duct, pancreas, abdominal aorta and IVC.
Alcoholic hepatitis, severe ascites, and decompensated alcoholic cirrhosis due to alcohol abuse:
-last drink 10 days [employer]ATOR [employer]
-GI following
-cont lactulose
-s/p 10L paracentesis on 03/22 (no SBP), s/p IV albumin
-s/p 10L paracentesis on 03/24 (no SBP), s/p IV albumin
-cont MSAS protocol (thiamine/folate/Ativan PRN)
-Coagulopathy due to cirrhosis s/p Vit K
-Pancytopenia due to cirrhosis
-palliative care has attempted to see the pt, pt is hospice appropriate
Severe Psoriasis:
-Marked skin changes c/w advanced psoriasis over multiple surfaces - most severe on RLE, lower abdomen and perineum.
-Continue triamcinolone ointment, wound care, recommend outpatient Derm evaluation.
-Suspect that cirrhosis will limit his systemic therapeutic options.
Hypokalemia, resolved
FULL/SCDs
Medically cleared for d/c. Case management aware. Likelihood of readmission within the next 30 days is 100%.
--- NOTE | 2024-03-25 10:54 | W.PN.HOSP.TC ---
Today's Communication/Plan
-
.
Assessment / Plan
Assessment / Plan
HPI: 58-year-old male with decompensated liver cirrhosis with recurrent ascites, prior esophageal varices with no prior bleeding, active alcohol abuse who is interested in alcohol cessation, active tobacco use who called the ambulance after he was
unable to get up from the floor. He lives alone, drives to get his vodka but for the past week he is pretty much been on the couch. Has not been eating much due to the inability to get around. He lives in a split-level. The last time he had any
vodka was about 10 days ago. Denies going into withdrawal. He has been in a 30-day rehab and is interested in stopping alcohol and smoking.
1. Decompensated Alcoholic Cirrhosis with Severe Ascites
- Appreciate GI reccs
- Current DF 76; MELD 3.0 28 -driven by his INR and total bilirubin
- Continue lactulose/Lasix/Aldactone
- S/p Large Vol (10L) paracentesis (/) with albumin supplementation
- s/p large vol (10L) paracentesis (03/24) with albumin supplementation
- Appreciate Palliative Care; patient is poor candidate for transplantation; hospice appropriate
3. Alcohol dependency
- Last drink was 10 days prior to admission
- Patient counseled on importance of alcohol cessation on his current state of health
4. Coagulopathy
Status post vitamin K
5. Chronic Pancytopenia
- 2/2 Liver Dz; monitor
#Malignant Right Pleural Effusion
#ASCVD
#Hypertension
#Coagulopathy
Status post vitamin K
#Severe Psoriasis
�- Marked skin changes c/w advanced psoriasis over multiple surfaces - most severe on RLE, lower abdomen and perineum.
�- Continue triamcinolone ointment, wound care, recommend outpatient Derm evaluation.
�- Suspect that cirrhosis will limit his systemic therapeutic options.
DVT prophylaxis�SCDs
Full code=
Medically cleared for d/c. Case management aware. Likelihood of readmission within the next 30 days is 100%.
Anticipated Discharge: Today
Subjective/Interval History
-
Date of Service: March 25, 2024
Patient seen and examined while resting comfortably in bed. Patient states that after yesterday's paracentesis he feels 'relieved'.
Objective Data
-
Labs:
Laboratory Results
03/25/24
06:48
WBC 5.4
Hgb 9.9 L
Hct 30.3 L
Plt Count 109 L
PT 30.0 H
INR 2.81
Sodium 134 L
Potassium 3.6
Chloride 97 L
Carbon Dioxide 30
BUN 8 L
Creatinine 0.6 L
Glucose 90
Calcium 7.9 L
Total Bilirubin 6.2 H
AST 119 H
ALT 40
Alkaline Phosphatase 85
Vital Signs:
Vital Signs
Temp Pulse Resp BP Pulse Ox
98.9 F 92 20 103/60 98
03/25/24 07:30 03/25/24 08:34 03/25/24 07:30 03/25/24 08:34 03/25/24 07:30
I&O
03/24/24 03/25/24 03/26/24
06:59 06:59 06:59
Intake Total 960 / 960 480 / 480 360 / 360
Output Total 200 / 200 950 / 950
Balance 760 / 760 -470 / -470 360 / 360
Review of Systems
-
Constitutional: Reports No Symptoms
Respiratory: Reports No Symptoms
Cardiac: Reports No Symptoms
Abdomen/GI: Reports Other (distension, improved)
Neuro: Reports No Symptoms
Physical Exam
-
General: No Apparent Distress, Comfortable and Conversant
HEENT: Normocephalic, Atraumatic and Other (mild scleral icterus)
Respiratory: Clear to Auscultation; Negative Wheezes, Rales or Rhonchi
Cardiac: Regular Rhythm and S1/S2
GI: Soft and Other (still moderately distended 2/2 ascites)
Skin: Rash (psoriatic lesions)
Neuro: Awake and Alert
Psych: Calm
Data Reviewed
-
Labs: Labs Reviewed by me and Discussed with Patient
[2024-03-25 15:45] VITALS: BP 110/65
--- NOTE | 2024-03-25 16:22 | CM ---
CM following for discharge to SNF. I met with Shayne, his daughter Yvette and his parents to discuss discharge to SNF. Referrals sent to 18 facilities; [facility] and [facility] have indicated that they are willing to accept; awaiting
responses from other facilities so daughter can be involved in choice of facility.
CM to follow up in AM to coordinate transfer to SNF based on bed offers. Will need to obtain authorization.
[2024-03-25] MEDS: LOVENOX SC (17:10)
[2024-03-25 23:38] VITALS: BP 109/53
[2024-03-26 06:00] VITALS: BMI 26.9
--- NOTE | 2024-03-26 06:05 | W.PN.GI.CBS2 ---
Today's Communication / Plan
-
Please see assessment and plan for details.
Assessment / Plan
-
1. Cirrhosis: Secondary to alcohol,decompensated with portal hypertension, varices, ascites, edema and encephalopathy, all of which are improving post paracentesis and with lactulose. There is also likely some component of acute alcoholic
hepatitis. Overall he is improving, LFTs and INR were improved yesterday. We discussed complete alcohol abstinence which he thinks he may or may not be compliant with. At this point would continue diuretics, lactulose and alcohol abstinence, salt
restriction. Will hold on prednisolone given improvement in LFTs and unsure follow-up. Will plan repeat labs and office visit in the next 2 to 3 weeks, and he will contact Dr. Moreno who is seen in the past if he wishes to be compliant. We
discussed that the next steps are really up to him if he is compliant and willing to be abstinent of alcohol and continue to move forward. If he is not then comfort care would be appropriate. Follow-up labs have been ordered, an appointment is set
in discharge instructions.
Will sign off for now, please go back with any further questions.
Subjective
Subjective
Date of Service: March 26, 2024
Patient doing okay, no new complaints. No abdominal pain, fever, chills, nausea or vomiting.
Objective
Data Reviewed
Laboratory Data:
Laboratory Results
03/25/24 06:48
03/25/24 06:48
Laboratory Results
PT 30.0 Sec (11.4-14.6) H 03/25/24 06:48
INR 2.81 03/25/24 06:48
APTT 50.4 Sec (23.4-35.0) H 03/21/24 03:09
Phosphorus Cancelled 03/21/24 09:51
Magnesium Cancelled 03/21/24 09:51
Total Bilirubin 6.2 mg/dl (0.2-1.3) H 03/25/24 06:48
AST 119 U/L (17-59) H 03/25/24 06:48
ALT 40 U/L (0-50) 03/25/24 06:48
Alkaline Phosphatase 85 U/L (38-126) 03/25/24 06:48
Vital Signs and I&O:
Vital Signs
Temp Pulse Resp BP Pulse Ox
99.6 F 100 18 109/53 95
03/25/24 23:38 03/25/24 23:38 03/25/24 23:38 03/25/24 23:38 03/25/24 23:38
I&O
03/24/24 03/25/24 03/26/24
06:59 06:59 06:59
Intake Total 960 / 960 480 / 480 840 / 840
Output Total 200 / 200 950 / 950 725 / 725
Balance 760 / 760 -470 / -470 115 / 115
Physical Exam
Physical Exam
General: NAD
Abdomen: normal bowel sounds, soft, no tenderness, no masses or bruits, mild to moderate ascites though no significant change from yesterday
[2024-03-26 07:30] VITALS: BP 120/68
[2024-03-26] MEDS: TRIAMCINOLONE ACETONIDE 0.1% OINTMENT 1 APPLIC TOPICAL ×3 (08:36→21:30)
[2024-03-26] MEDS: VITAMIN B1 100 MG PO ×2 (08:36→21:29)
[2024-03-26] MEDS: FOLVITE 1 MG PO (08:36)
[2024-03-26] MEDS: ALDACTONE 100 MG PO (08:36)
[2024-03-26] MEDS: DUPHALAC/CHRONULAC 20 GRAMS PO ×2 (08:36→21:29)
[2024-03-26] MEDS: LASIX 40 MG PO (08:36)
--- NOTE | 2024-03-26 09:16 | W.PN.UPDATE ---
Update Note
Progress Note Update
I saw and evaluated the patient. I reviewed the resident�s note and agree with findings and plan as documented in the resident�s note.
No new complaints.
Gen: NAD, Awake and alert, appears chronically ill.
Eyes: EOMI, PERRLA, mild scleral icterus.
Neck: supple.
CV: continues to remain RRR, +S1/S2, no m/r/g.
Resp: CTAB anteriorly, no rales, wheezes, or rhonchi.
Abd: +BS, soft, moderate distention due to ascites, ND
Skin: intact, psoriasis most notable on RLE
Neuro: CN 2-12 intact, non-focal.
Psych: Normal mood and affect.
Abd U/S with doppler: EXTREMELY LIMITED STUDY. Hepatic cirrhotic morphology. Markedly limited abdominal Doppler with hepatic veins not visualized, likely hepatofugal portal blood flow and unremarkable hepatic artery low resistance waveform. Marked
ascites. Gallbladder stones and sludge. Gallbladder wall thickening which may be secondary to ascites. Grossly negative sonographic Alexander's sign. Markedly limited visualization/nonvisualized common bile duct, pancreas, abdominal aorta and IVC.
Alcoholic hepatitis, severe ascites, and decompensated alcoholic cirrhosis due to alcohol abuse:
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
-GI following
-cont lactulose
-s/p 10L paracentesis on 03/22 (no SBP), s/p IV albumin
-s/p 10L paracentesis on 03/24 (no SBP), s/p IV albumin
-cont MSAS protocol (thiamine/folate/Ativan PRN)
-Coagulopathy due to cirrhosis s/p Vit K
-Pancytopenia due to cirrhosis
-palliative care has attempted to see the pt, pt is hospice appropriate
Severe Psoriasis:
-Marked skin changes c/w advanced psoriasis over multiple surfaces - most severe on RLE, lower abdomen and perineum.
-Continue triamcinolone ointment, wound care, recommend outpatient Derm evaluation.
-Suspect that cirrhosis will limit his systemic therapeutic options.
Hypokalemia, resolved
FULL/SCDs
Remains medically cleared for d/c since 03/25/24. Case management aware. Likelihood of readmission within the next 30 days is 100%.
[2024-03-26 09:33] VITALS: BP 109/59; BP 113/61; PULSE 84; O2SAT 98
--- NOTE | 2024-03-26 09:39 | W.PN.HOSP.TC ---
Today's Communication/Plan
-
Discharge to SNF pending bed availability.
Assessment / Plan
Assessment / Plan
HPI: 58-year-old male with decompensated liver cirrhosis with recurrent ascites, prior esophageal varices with no prior bleeding, active alcohol abuse who is interested in alcohol cessation, active tobacco use who called the ambulance after he was
unable to get up from the floor. He lives alone, drives to get his vodka but for the past week he is pretty much been on the couch. Has not been eating much due to the inability to get around. He lives in a split-level. The last time he had any
vodka was about 10 days ago. Denies going into withdrawal. He has been in a 30-day rehab and is interested in stopping alcohol and smoking.
1. Decompensated Alcoholic Cirrhosis with Severe Ascites
- Appreciate GI reccs
- Current DF 76; MELD 3.0 28 -driven by his INR and total bilirubin
- Continue lactulose/Lasix/Aldactone
- S/p Large Vol (10L) paracentesis (03/22) with albumin supplementation
- s/p large vol (10L) paracentesis (03/24) with albumin supplementation
- Appreciate Palliative Care; patient is poor candidate for transplantation; hospice appropriate
3. Alcohol dependency
- Last drink was 10 days prior to admission
- Patient counseled on importance of alcohol cessation on his current state of health
4. Coagulopathy
Status post vitamin K
5. Chronic Pancytopenia
- 2/2 Liver Dz; monitor
#Malignant Right Pleural Effusion
#ASCVD
#Hypertension
#Coagulopathy
Status post vitamin K
#Severe Psoriasis
�- Marked skin changes c/w advanced psoriasis over multiple surfaces - most severe on RLE, lower abdomen and perineum.
�- Continue triamcinolone ointment, wound care, recommend outpatient Derm evaluation.
�- Suspect that cirrhosis will limit his systemic therapeutic options.
DVT prophylaxis�SCDs
Full code=
Medically cleared for d/c since 03/25/2024. Case management aware. Likelihood of readmission within the next 30 days is 100%.
Anticipated Discharge: Today
Subjective/Interval History
-
Date of Service: March 26, 2024
No new complaints this AM.
Objective Data
-
Vital Signs:
Vital Signs
Temp Pulse Resp BP Pulse Ox
98.6 F 84 16 120/68 97
03/26/24 07:30 03/26/24 07:30 03/26/24 07:30 03/26/24 07:30 03/26/24 07:30
I&O
03/25/24 03/26/24 03/27/24
06:59 06:59 06:59
Intake Total 480 / 480 840 / 840 480 / 480
Output Total 950 / 950 725 / 725 150 / 150
Balance -470 / -470 115 / 115 330 / 330
Review of Systems
-
History Source: Patient
Respiratory: Reports No Symptoms
Cardiac: Reports No Symptoms
Abdomen/GI: Denies Abdominal Pain, Nausea or Vomiting
Neuro: Reports No Symptoms
Physical Exam
-
General: No Apparent Distress, Comfortable and Appears Chronically Ill
HEENT: Normocephalic, Atraumatic and Other (mild scleral icterus)
Respiratory: Clear to Auscultation; Negative Wheezes, Rales or Rhonchi
Cardiac: Regular Rhythm and S1/S2
GI: Soft, Nontender and Distended
Skin: Warm
Neuro: Awake, Alert and Oriented
Psych: Calm
--- NOTE | 2024-03-26 12:15 | CM ---
Addendum entered by Edith Hawthorne 03/26/24 12:37:
CM advised by [facility] that although they had offered a bed, they are not in-network with pt's insurance.
CM will look into additional SNF options. Discussed with daughter.
Original Note:
[facility] accepted referral, however no bed available today. Awaiting update for possible bed available tomorrow. [facility] was offered as an option. Pt prefers [facility] since it is near his daughter's home, and she is his main support.
CM will continue to follow for transfer to SNF pending bed availability.
[2024-03-26 15:30] VITALS: BP 95/48
[2024-03-26 16:00] VITALS: BP 113/61; PULSE 92
[2024-03-26] MEDS: LOVENOX SC (17:07)
--- NOTE | 2024-03-26 17:07 | CM ---
CM following for transfer to SNF. Multiple bed offers received, but later recanted due to pt's insurance.
CM discussed with Shayne's daughter and she is agreeable to [facility] who is agreeable to working on transfer closer to daughter (Kristan).
Clinical submitted [facility] via fax as directed ([phone])
CM to follow up in AM for authorization.
[2024-03-26 23:20] VITALS: BP 105/51
[2024-03-27 06:00] VITALS: BMI 26.5
[2024-03-27 07:00] VITALS: BP 107/51
--- NOTE | 2024-03-27 08:36 | W.PN.UPDATE ---
Addendum entered and electronically signed by Nitesh Coppola MD 03/27/24 09:54:
Total time spent on d/c = 31 min. This included today's physical exam, progress note, review of laboratory and diagnostic data, preparation of discharge documents and prescriptions, and discussions about the pt's hospital course and discharge plan
with the patient and other medical office assistant involved in the patient's care.
Original Note:
Update Note
Progress Note Update
I saw and evaluated the patient. I reviewed the resident�s note and agree with findings and plan as documented in the resident�s note.
No new complaints.
Gen: remains NAD, Awake and alert, appears chronically ill.
Eyes: EOMI, PERRLA, mild scleral icterus.
Neck: supple.
CV: RRR, +S1/S2, no m/r/g.
Resp: remains CTAB anteriorly, no rales, wheezes, or rhonchi.
Abd: +BS, soft, moderate-moderately severe distention due to ascites, ND
Neuro: CN 2-12 intact, non-focal.
Psych: Normal mood and affect.
Abd U/S with doppler: EXTREMELY LIMITED STUDY. Hepatic cirrhotic morphology. Markedly limited abdominal Doppler with hepatic veins not visualized, likely hepatofugal portal blood flow and unremarkable hepatic artery low resistance waveform. Marked
ascites. Gallbladder stones and sludge. Gallbladder wall thickening which may be secondary to ascites. Grossly negative sonographic Alexander's sign. Markedly limited visualization/nonvisualized common bile duct, pancreas, abdominal aorta and IVC.
Alcoholic hepatitis, severe ascites, and decompensated alcoholic cirrhosis due to alcohol abuse:
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
-GI following
-cont lactulose
-s/p 10L paracentesis on 03/22 (no SBP), s/p IV albumin
-s/p 10L paracentesis on 03/24 (no SBP), s/p IV albumin
-Will likely need paracenteses once or twice weekly going forward in the outpatient setting
-cont MSAS protocol (thiamine/folate/Ativan PRN)
-Coagulopathy due to cirrhosis s/p Vit K
-Pancytopenia due to cirrhosis
-palliative care attempted to see the pt, pt is hospice appropriate
Severe Psoriasis:
-Marked skin changes c/w advanced psoriasis over multiple surfaces - most severe on RLE, lower abdomen and perineum.
-Continue triamcinolone ointment, wound care, recommend outpatient Derm evaluation.
-Suspect that cirrhosis will limit his systemic therapeutic options.
Hypokalemia, resolved
FULL/SCDs
Remains medically cleared for d/c since 03/25/24. Case management aware. Likelihood of readmission within the next 30 days is 100%.
[2024-03-27] MEDS: LASIX 40 MG PO (08:42)
[2024-03-27] MEDS: TRIAMCINOLONE ACETONIDE 0.1% OINTMENT 1 APPLIC TOPICAL (08:42)
[2024-03-27] MEDS: ALDACTONE 100 MG PO (08:43)
[2024-03-27] MEDS: VITAMIN B1 100 MG PO (08:43)
[2024-03-27] MEDS: FOLVITE 1 MG PO (08:43)
[2024-03-27] MEDS: DUPHALAC/CHRONULAC 20 GRAMS PO (08:43)
--- NOTE | 2024-03-27 09:00 | W.PN.HOSP.TC ---
Today's Communication/Plan
-
.
Assessment / Plan
Assessment / Plan
HPI: 58-year-old male with decompensated liver cirrhosis with recurrent ascites, prior esophageal varices with no prior bleeding, active alcohol abuse who is interested in alcohol cessation, active tobacco use who called the ambulance after he was
unable to get up from the floor. He lives alone, drives to get his vodka but for the past week he is pretty much been on the couch. Has not been eating much due to the inability to get around. He lives in a split-level. The last time he had any
vodka was about 10 days ago. Denies going into withdrawal. He has been in a 30-day rehab and is interested in stopping alcohol and smoking.
1. Decompensated Alcoholic Cirrhosis with Severe Ascites
- Appreciate GI reccs
- Current DF 76; MELD 3.0 28 -driven by his INR and total bilirubin
- Continue lactulose/Lasix/Aldactone
- S/p Large Vol (10L) paracentesis (03/22) with albumin supplementation
- s/p large vol (10L) paracentesis (03/24) with albumin supplementation
- Appreciate Palliative Care; patient is poor candidate for transplantation; hospice appropriate
3. Alcohol dependency
- Last drink was 10 days prior to admission
- Patient counseled on importance of alcohol cessation on his current state of health
4. Coagulopathy
Status post vitamin K
5. Chronic Pancytopenia
- 2/2 Liver Dz; monitor
#Malignant Right Pleural Effusion
#ASCVD
#Hypertension
#Coagulopathy
Status post vitamin K
#Severe Psoriasis
�- Marked skin changes c/w advanced psoriasis over multiple surfaces - most severe on RLE, lower abdomen and perineum.
�- Continue triamcinolone ointment, wound care, recommend outpatient Derm evaluation.
�- Suspect that cirrhosis will limit his systemic therapeutic options.
DVT prophylaxis�SCDs
Full code=
Medically cleared for d/c since 03/25/2024. Case management aware. Likelihood of readmission within the next 30 days is 100%.
Anticipated Discharge: Today
Subjective/Interval History
-
Date of Service: March 27, 2024
No acute complaints this morning. 'Feeling okay'.
Objective Data
-
Vital Signs:
Vital Signs
Temp Pulse Resp BP Pulse Ox
98.7 F 84 18 107/51 97
03/27/24 07:00 03/27/24 07:00 03/27/24 07:00 03/27/24 07:00 03/27/24 07:00
I&O
03/26/24 03/27/24 03/28/24
06:59 06:59 06:59
Intake Total 840 / 840 1500 / 1500
Output Total 725 / 725 1725 / 1725
Balance 115 / 115 -225 / -225
Review of Systems
-
Constitutional: Reports No Symptoms
Respiratory: Reports No Symptoms
Cardiac: Reports No Symptoms
Abdomen/GI: Denies Abdominal Pain, Nausea or Vomiting
Neuro: Reports No Symptoms
Physical Exam
-
General: No Apparent Distress and Conversant
HEENT: Normocephalic, Atraumatic and Other (mild scleral icterus)
Respiratory: Clear to Auscultation and Non Labored Respirations; Negative Wheezes, Rales, Rhonchi or Crackles
Cardiac: Regular Rhythm and S1/S2
GI: Nontender, Normal Bowel Sounds and Distended
Skin: Warm
Neuro: Awake and Alert
Psych: Calm
--- NOTE | 2024-03-27 09:30 | CM ---
Authorization for SNF transfer to [facility] approved by Hanna at [facility] (PH: [phone]; ). Auth# [id number] for skilled are 03/27-04/02/2024. Fax updates to be sent to [phone].
Call placed to Shayne's daughter to make her aware of same. She is agreeable to transfer and would like to speak with RN about discharge instructions.
[facility] Report: [phone]
[facility]
--- NOTE | 2024-03-28 13:40 | W.DCSUMMARY ---
Discharge Summary
Discharge Data
Date of Admission: 03/21/24
Date of Discharge: 03/27/24
Total time spent discharging patient (in min): 32
-
Pending Results: No
Additional Pending Results:
Shayne Ribera is a 8-year-old male with past medical history of alcoholic cirrhosis, complicated by varices status post banding, and a history of bleeding who presented to the emergency department after a fall at home. The fall was described as
sliding out of his chair and the patient had been complaining of weakness and swelling in his legs bilaterally. Importantly, the patient stated that he had started drinking alcohol again recently (approximately half a bottle of vodka per day). His
last drink was 5 days prior to arrival due to increasing abdominal swelling and lower extremity swelling. In addition to loss of sobriety, patient also noted that he was noncompliant with his medications including Lasix.
ED COURSE:
In the emergency department he was afebrile, blood pressure was 131/70 with a pulse of 120. He was satting 100% on room air. CBC was stable. His electrolytes BUN/creatinine were also stable. Glucose was slightly low at 62. The bilirubin was
elevated to 10.3 with ALT of 55 and AST of slightly greater than 200. On examination patient had an extremely large and ascitic abdomen and 4+ pitting edema of the bilateral lower extremities. Given the amount of ascites, patient was admitted for
evaluation by interventional radiology for paracentesis, physical therapy, and further evaluation.
HOSPITAL COURSE:
While admitted in the hospital, patient received 2 large-volume paracenteses of approximately 10 L of ascitic fluid each. Fluid analysis on both occasions are negative for spontaneous bacterial peritonitis. Patient was repleted with IV albumin
following both paracenteses. Patient was seen and evaluated by the cloth napping supervisor who started the patient on oral lactulose. In ultrasound of the abdomen (extreme limited study) showed marked ascites, gallbladder wall thickening which may be
secondary to ascites, and hepatic cirrhosis. Liver transplantation was discussed, however, it was made clear that the patient would need to have better compliance with medications and with his sobriety in order to consider such an option. Patient
was also seen by palliative care while at the hospital. If liver transplant is not an option, the patient may be hospice appropriate.
DISCHARGE RECOMMENDATIONS:
In the setting of recurrent large-volume ascites, a 2 g sodium diet and restriction of fluids to 48 ounces per day.
Diuretic therapy and weekly complete blood count, comprehensive metabolic panel, and INRs
Patient to return to [facility] for any recurrent ascites or paracentesis.
Follow-up appointments made with gastroenterology, transplant surgery.
Lasix dose changed to 40 mg oral daily
Spironolactone dose changed to 100 mg oral daily
Lactulose 20 g oral daily added to regimen
Triamcinolone cream prescribed for psoriatic lesions
Discharge Plan
-
Patient Disposition: Longterm/SNF
Discharge Diagnosis/Procedures: Severe Ascites
Decompensated Alcoholic Cirrhosis
Alcoholic Hepatitis
Severe Psoriasis
Condition: Fair
Diet: Low Cholesterol, 2 Gram Sodium and Restrict fluids to 48 oz
Activity: As tolerated
Blood Work: CBC, CMP and INR weekly with diuretic therapy -- order sent electronically to [facility]
Others Tests: Return to [facility] for any recurrent ascites and need for paracentesis
Activity Restrictions/Additional Instructions:
Wound Care Instructions
Triamcinolone ointment TID to affected areas.
Scabbed psoriasis areas-clean daily and water or Vashe wound cleanser, apply moisture lotion to dry areas Bid.
Bilateral knee high Tubigrip or Nik wraps as tolerated; remove at bedtime; reapply every morning. Adaptic and gauze daily if skin open/weeping under Tubigrip or Nik wrap.
Elevate heels off bed with pillows.
Follow up with with a sausage cooker.
Referrals:
Katie Alan CRNP [Specified Professional Personl] - 04/08/24 1:00 pm (call GI office to confirm office visit for follow up in 2 week with GI)
NONE,* [Family Provider] - in less than 1 week
Cr Moreno MD [Non-Admitting Privileges] - (follow up with Dr. Moreno to discuss for end stage liver disease and liver transplant)
Prescriptions:
New
furosemide 40 mg Tablet
40 mg PO DAILY Qty: 30 0RF
triamcinolone acetonide 0.1 % Ointment
1 applic topical TID Qty: 1 0RF
spironolactone 50 mg Tablet
100 mg PO DAILY Qty: 30 0RF
lactulose 10 gram/15 mL solution
20 g PO BID Qty: 946 0RF
Continued
cholecalciferol (vitamin D3) 50 mcg (2,000 unit) Tablet
50 mcg PO DAILY
Discontinued
spironolactone 50 mg Tablet
50 mg PO BID Qty: 60 0RF
furosemide 40 mg tablet
80 mg PO BID
Discharge Orders:
Discharge Patient (As Directed); Ordered 03/26/24
Ordered By: Deon Camacho
Discharge Date and Time
Discharge Date/Time: 03/27/24 14:27
Print Language: POLISH
== END 2024-03-27 14:27 | DRG 433 ==
LOC: 4 EAST ACU 04:15
PROVIDERS: Family Medicine; Nurse Practitioner Adult Health; Radiology Diagnostic Radiology; ADMITTING PHYSICIAN Internal Medicine; ATTENDING PHYSICIAN Internal Medicine; CONSULT PHYSICIAN Internal Medicine; EMERGENCY PHYSICIAN Student in an Organized Health Care Education/Training Program
PROC: 0W9G3ZZ Drainage of Peritoneal Cavity, Percutaneous Approach (ICD-10-PCS; 2024-03-23)
DX: K70.31 Alcoholic cirrhosis of liver with ascites (principal); D68.9 Coagulation defect, unspecified; K76.6 Portal hypertension; E87.1 Hypo-osmolality and hyponatremia; J90 Pleural effusion, not elsewhere classified; K70.11 Alcoholic hepatitis with ascites; L40.8 Other psoriasis; F17.200 Nicotine dependence, unspecified, uncomplicated; F10.20 Alcohol dependence, uncomplicated; F32.A Depression, unspecified; Z91.148 Patient's other noncompliance with medication regimen for other reason; K57.30 Diverticulosis of large intestine without perforation or abscess without bleeding; Z80.42 Family history of malignant neoplasm of prostate; Z79.899 Other long term (current) drug therapy; E88.09 Other disorders of plasma-protein metabolism, not elsewhere classified; D69.6 Thrombocytopenia, unspecified; Z91.199 Patient's noncompliance with other medical treatment and regimen due to unspecified reason; I25.10 Atherosclerotic heart disease of native coronary artery without angina pectoris; I10 Essential (primary) hypertension
CPT/HCPCS: 49083; 71046; 76700; 80053; 80061; 80306; 81003; 81015; 82042; 82077; 82105; 82140; 82550; 83516; 83880; 84157; 85025; 85027; 85610; 85730; 86015; 86381; 87015; 87040; 87070; 87086; 87205; 89051; 93306; 93975; 96374; 97110; 97116; 97167; 97530; 97535; 99284; 99406; P9047

== ENCOUNTER → 2024-04-06 10:19 | Outpatient (REF) | payer OTHER, SELFPAY ==
[2024-04-06 11:03] VITALS: BP 129/87; BP_SYST 74
[2024-04-06 12:38] LABS: Body Fluid WBC 77 /CUMM
[2024-04-06 13:03] LABS: Body Fluid Second Tech CMB
== END ==
LOC: RADI 10:19
PROVIDERS: ATTENDING PHYSICIAN Family Medicine
DX: R18.8 Other ascites (principal)
CPT/HCPCS: 49083; 89051

== ENCOUNTER → 2024-04-09 08:55 | Outpatient (REF) | payer OTHER, SELFPAY ==
[2024-04-09 09:24] VITALS: BP 115/73; BP_SYST 78
[2024-04-09 10:20] VITALS: BP 114/75
[2024-04-09 10:54] LABS: Body Fluid Albumin < 1.0 g/dl; Body Fluid LDH 97 U/L; Body Fluid Mononuclear 91.4 %; Body Fluid Polymorphonuclear 8.6 %; Body Fluid Protein < 2.0 g/dl; Body Fluid WBC 128 /CUMM
[2024-04-09 10:57] LABS: Body Fluid Second Tech MA
== END ==
LOC: RADI 08:55
PROVIDERS: ATTENDING PHYSICIAN Nurse Practitioner; FAMILY PHYSICIAN Nurse Practitioner
DX: R18.8 Other ascites (principal)
CPT/HCPCS: 88305; 49083; 82042; 83615; 84157; 87015; 87070; 87205; 88112; 89051

== ENCOUNTER 2024-04-09 10:35 | Outpatient (RCR) | payer OTHER, SELFPAY ==
[2024-04-09 11:00] VITALS: BP 118/59
[2024-04-09] MEDS: FLEXBUMIN 100 IV (11:02)
[2024-04-09 11:27] VITALS: BP 118/59
[2024-04-09] MEDS: FLEXBUMIN 50 IV (13:04)
[2024-04-09 13:06] VITALS: BP 107/55
[2024-04-09 13:45] VITALS: BP 114/57
== END 2024-04-15 10:33 | disposition home or self-care (01) ==
LOC: OID 10:35
PROVIDERS: ATTENDING PHYSICIAN Internal Medicine; FAMILY PHYSICIAN Nurse Practitioner
DX: K70.31 Alcoholic cirrhosis of liver with ascites (principal); I85.10 Secondary esophageal varices without bleeding; Z72.0 Tobacco use
CPT/HCPCS: 96365; 96366; P9047

== ENCOUNTER → 2024-04-14 07:20 | Outpatient (REF) | payer OTHER, SELFPAY ==
[2024-04-14 08:00] VITALS: BP 116/78; BP_SYST 86
[2024-04-14 10:39] LABS: Body Fluid Mononuclear 87.7 %; Body Fluid Polymorphonuclear 12.3 %; Body Fluid WBC 179 /CUMM
[2024-04-14 10:58] LABS: Body Fluid Second Tech AMA
== END ==
LOC: RADI 07:20
PROVIDERS: ATTENDING PHYSICIAN Nurse Practitioner; FAMILY PHYSICIAN Nurse Practitioner
DX: R18.8 Other ascites (principal)
CPT/HCPCS: 49083; 87015; 87070; 87205; 89051

== ENCOUNTER → 2024-04-21 07:33 | Outpatient (REF) | payer OTHER, SELFPAY ==
[2024-04-21 07:45] VITALS: BP 132/91; BP_SYST 98
[2024-04-21 08:30] VITALS: BP 124/81
[2024-04-21 09:09] LABS: Body Fluid WBC 221 /CUMM
[2024-04-21 09:14] LABS: Body Fluid Second Tech EM
== END ==
LOC: RADI 07:33
PROVIDERS: ATTENDING PHYSICIAN Nurse Practitioner
DX: R18.8 Other ascites (principal)
CPT/HCPCS: 49083; 87015; 87070; 87205; 89051

== ENCOUNTER → 2024-04-28 07:04 | Outpatient (REF) | payer OTHER, SELFPAY ==
[2024-04-28 07:17] VITALS: BP 118/83; BP_SYST 96
[2024-04-28 08:11] VITALS: BP 117/77; BP_SYST 85
[2024-04-28 08:27] VITALS: BP 117/77
[2024-04-28 09:03] LABS: Body Fluid Polymorphonuclear 14.5 %; Body Fluid WBC 145 /CUMM
[2024-04-28 09:04] LABS: Body Fluid Mononuclear 85.5 %
[2024-04-28 09:06] LABS: Body Fluid Second Tech EF
== END ==
LOC: RADI 07:04
PROVIDERS: ATTENDING PHYSICIAN Nurse Practitioner; FAMILY PHYSICIAN Family Medicine
DX: R18.8 Other ascites (principal)
CPT/HCPCS: 49083; 87015; 87070; 87205; 89051

== ENCOUNTER → 2024-05-05 07:46 | Outpatient (REF) | payer OTHER, SELFPAY ==
[2024-05-05 07:58] VITALS: BP 109/81; BP_SYST 91
[2024-05-05 10:12] LABS: Body Fluid WBC 112 /CUMM
[2024-05-05 10:14] LABS: Body Fluid Second Tech CS
== END ==
LOC: RADI 07:46
PROVIDERS: ATTENDING PHYSICIAN Nurse Practitioner; FAMILY PHYSICIAN Family Medicine
DX: R18.8 Other ascites (principal)
CPT/HCPCS: 49083; 87015; 87070; 87205; 89051

== ENCOUNTER 2024-05-05 09:05 | Outpatient (RCR) | payer OTHER, SELFPAY ==
[2024-05-05 09:15] VITALS: BP 116/65
[2024-05-05 09:28] VITALS: BP 116/65
[2024-05-05] MEDS: FLEXBUMIN 100 IV (09:28)
[2024-05-05 11:00] VITALS: BP 112/63
[2024-05-05] MEDS: FLEXBUMIN 50 IV (11:01)
[2024-05-05 11:55] VITALS: BP 122/65
== END 2024-05-18 12:28 | disposition home or self-care (01) ==
LOC: OID 09:05
PROVIDERS: ATTENDING PHYSICIAN Internal Medicine; FAMILY PHYSICIAN Nurse Practitioner
DX: K70.31 Alcoholic cirrhosis of liver with ascites (principal); I85.10 Secondary esophageal varices without bleeding; Z72.0 Tobacco use
CPT/HCPCS: 96365; 96366; P9047

== ENCOUNTER → 2024-05-12 07:35 | Outpatient (REF) | payer OTHER, SELFPAY ==
[2024-05-12 07:50] VITALS: BP 129/92; BP_SYST 98
[2024-05-12 08:44] VITALS: BP 118/66
[2024-05-12 08:55] LABS: Body Fluid Mononuclear 86.6 %; Body Fluid Polymorphonuclear 13.4 %; Body Fluid WBC 112 /CUMM
[2024-05-12 09:10] LABS: Body Fluid Second Tech CF
== END ==
LOC: RADI 07:35
PROVIDERS: ATTENDING PHYSICIAN Nurse Practitioner; FAMILY PHYSICIAN Family Medicine
DX: R18.8 Other ascites (principal)
CPT/HCPCS: 49083; 87015; 87070; 87205; 89051

== ENCOUNTER → 2024-05-19 07:40 | Outpatient (REF) | payer BC, SELFPAY ==
[2024-05-19 07:53] VITALS: BP 122/85; BP_SYST 100
[2024-05-19 08:53] VITALS: BP 132/72
[2024-05-19 11:33] LABS: Body Fluid Mononuclear 87.1 %; Body Fluid Polymorphonuclear 12.9 %; Body Fluid WBC 85 /CUMM
[2024-05-19 12:09] LABS: Body Fluid Second Tech SS
== END ==
LOC: RADI 07:40
PROVIDERS: ATTENDING PHYSICIAN Nurse Practitioner
DX: R18.8 Other ascites (principal)
CPT/HCPCS: 49083; 87015; 87070; 87205; 89051